=== PATIENT | male | born 1930 ===

== ENCOUNTER 2016-11-27 10:28 | Observation (INO) | payer MEDICARE, OTHER ==
[2016-11-27 10:31] VITALS: BMI 26.5
[2016-11-27 11:07] LABS: ADD MANUAL DIFF? NO
[2016-11-27 11:23] LABS: ALB/GLOB RATIO 1.5 (1.1-1.8); ALKALINE PHOSPHATASE 88 U/L (38-133); ALT/SGPT 24 U/L (7-56); AST/SGOT 55 U/L (15-59); BILIRUBIN,TOTAL 0.7 mg/dL (0.2-1.3); BLOOD UREA NITROGEN 24 mg/dL (7-21); CALCIUM 8.5 mg/dL (8.4-10.5); CARBON DIOXIDE 25 mmol/L (21-33); CHLORIDE 98 mmol/L (98-107); GFR AFRICAN-AMERICAN > 60; GLUCOSE,RANDOM 250 mg/dL (70-110); MAGNESIUM 1.7 mg/dL (1.7-2.2); POTASSIUM 5.1 mmol/L (3.6-5.0); SODIUM 130 mmol/L (132-148); TOTAL PROTEIN 5.9 g/dL (5.8-8.3)
--- NOTE | 2016-11-27 11:30 | RAD ---
HISTORY: chest pain COMPARISON: 07/10/2015 FINDINGS: LUNGS: No active pulmonary disease. PLEURA: No significant pleural effusion identified, no pneumothorax apparent. CARDIOVASCULAR: Normal. OSSEOUS STRUCTURES: No significant abnormalities. VISUALIZED UPPER ABDOMEN: Normal. OTHER FINDINGS: None. IMPRESSION: No active disease.
[2016-11-27 11:35] LABS: TROPONIN I < 0.01 ng/mL
[2016-11-27 11:41] LABS: BASO # 0.03 K/mm3 (0.0-2.0); BASO % 0.4 % (0.0-3.0); EOS # 0.2 (0.0-0.7); EOS % 2.9 % (1.5-5.0); GRAN # 6.01 (1.4-6.5); GRAN % 76.5 % (50.0-68.0); HEMATOCRIT 39.1 % (42.0-52.0); LYMPH # 1.2 (1.2-3.4); LYMPH % 15.1 % (22.0-35.0); MEAN CELL VOLUME 60.2 fL (80.0-105.0); MEAN CORPUSCULAR HEMOGLOBIN 16.5 pg (25.0-35.0); MEAN CORPUSCULAR HGB CONC 27.4 g/dl (31.0-37.0); MONO # 0.4 (0.1-0.6); MONO % 5.1 % (1.0-6.0); PLATELET COUNT 574 10^3/uL (120.0-450.0); WHITE BLOOD COUNT 7.9 10^3/ul (4.5-11.0)
--- NOTE | 2016-11-27 12:21 | CT ---
PROCEDURE: CT HEAD WITHOUT CONTRAST. HISTORY: r/o ICH COMPARISON: None available. TECHNIQUE: Axial computed tomography images were obtained through the head/brain without intravenous contrast. Radiation dose: Total exam DLP = 802 mGy-cm. This CT exam was performed using one or more of the following dose reduction techniques: Automated exposure control, adjustment of the mA and/or kV according to patient size, and/or use of iterative reconstruction technique. FINDINGS: HEMORRHAGE: No intracranial hemorrhage. BRAIN: No mass effect or edema. No atrophy or chronic microvascular ischemic changes. VENTRICLES: Unremarkable. No hydrocephalus. CALVARIUM: Unremarkable. PARANASAL SINUSES: Unremarkable as visualized. No significant inflammatory changes. MASTOID AIR CELLS: Unremarkable as visualized. No inflammatory changes. OTHER FINDINGS: None. IMPRESSION: Normal CT of the Head.
--- NOTE | 2016-11-27 13:42 | ED PDOC ---
Arrival/HPI - General Chief Complaint: Weakness/Neurological Deficit Time Seen by Provider: 11/27/16 10:49 Historian: Family - History of Present Illness Narrative History of Present Illness (Text): 11/27/16 10:49 A 85 year old male presents to the emergency department, accompanied by family. Family states the patient has been complaining of left arm and chest discomfort since last night. Patient denies any shortness of breath cough, fever, chills, recent travel or any other complaints at this time. Family mentions the patient has cardiac stents and has not had a cardiac workup recently. PMD: Dr. Mitchell Time/Duration: Other (12-18 hours) Symptom Onset: Sudden Symptom Course: Unchanged Quality: Other Activities at Onset: Rest Context: Home Past Medical History - Provider Review Nursing Documentation Reviewed: Yes - Infectious Disease Hx of Infectious Diseases: None - Cardiac Hx Cardiac Disorders: Yes (cad) - Neurological Hx Paralysis: No - HEENT Hx Cataracts: Yes (bilateral 1 1/2 yrs ago) Other/Comment: wears eyeglasses - Endocrine/Metabolic Hx Diabetes Mellitus Type 2: Yes - Hematological/Oncological Hx Blood Transfusions: (PT IS JEHOVAHS WITTNESS/NO BLOOD TRANSFUSIONS) - Integumentary Other/Comment: redness to lle - Musculoskeletal/Rheumatological Hx Falls: No - Genitourinary/Gynecological Hx Prostate Problems: Yes (enlarged takees flomax) - Psychiatric Hx Substance Use: No - Surgical History Hx Cardiac Catheterization: Yes (appx 15 yrs ago) Other/Comment: cardiac stent - Anesthesia Hx Anesthesia Reactions: No Hx Malignant Hyperthermia: No - Suicidal Assessment Feels Threatened In Home Enviroment: No Family/Social History - Physician Review Nursing Documentation Reviewed: Yes Family/Social History: Unknown Family HX Smoking Status: Never Smoked Hx Alcohol Use: No Hx Substance Use: No Hx Substance Use Treatment: No Allergies/Home Meds Allergies/Adverse Reactions: Allergies Penicillins Allergy (Verified 11/27/16 14:44) RASH Home Medications: Home Meds Medication Instructions Recorded Confirmed Tamsulosin [Flomax] 0.4 mg PO DAILY 09/19/12 11/27/16 Glimepiride 4 mg PO DAILY 10/08/15 11/27/16 Metformin HCl [Glucophage] 1,000 mg PO BID 10/08/15 11/27/16 Multivitamin [One Daily] 1 tab PO DAILY 10/08/15 11/27/16 Aspirin [Ecotrin] 81 mg PO DAILY 11/27/16 11/27/16 Famotidine [Heartburn Prevention] 20 mg PO DAILY 11/27/16 11/27/16 Finasteride [Proscar] 5 mg PO DAILY 11/27/16 11/27/16 Gabapentin [Neurontin] 100 mg PO TID 11/27/16 11/27/16 Isosorbide Dinitrate [Isosorbide 30 mg PO DAILY 11/27/16 11/27/16 Dinitrate] Review of Systems - Physician Review All systems were reviewed & negative as marked: Yes - Review of Systems Constitutional: absent: Fevers Respiratory: absent: SOB, Cough Cardiovascular: Chest Pain Musculoskeletal: Other (left arm discomfort) Physical Exam Vital Signs Reviewed: Yes Vital Signs Temp Pulse Resp BP Pulse Ox 11/27/16 13:24 74 20 144/81 99 11/27/16 11:56 81 19 150/76 100 11/27/16 10:29 97.9 F 86 20 154/79 H 100 Temperature: Afebrile Blood Pressure: Hypertensive Pulse: Regular Respiratory Rate: Normal Appearance: Positive for: Well-Appearing, Non-Toxic, Comfortable Pain Distress: None Mental Status: Positive for: Alert and Oriented X 3 - Systems Exam Head: Present: Atraumatic, Normocephalic Pupils: Present: PERRL Extroacular Muscles: Present: EOMI Conjunctiva: Present: Normal Mouth: Present: Moist Mucous Membranes Neck: Present: Normal Range of Motion Respiratory/Chest: Present: Clear to Auscultation, Good Air Exchange. No: Respiratory Distress, Accessory Muscle Use Cardiovascular: Present: Regular Rate and Rhythm, Normal S1, S2. No: Murmurs Abdomen: Present: Normal Bowel Sounds. No: Tenderness, Distention, Peritoneal Signs Back: Present: Normal Inspection Upper Extremity: Present: Normal Inspection. No: Cyanosis, Edema Lower Extremity: Present: Normal Inspection. No: Edema Neurological: Present: GCS=15, CN II-XII Intact, Speech Normal Skin: Present: Warm, Dry, Normal Color. No: Rashes Psychiatric: Present: Alert, Oriented x 3, Normal Insight, Normal Concentration Medical Decision Making ED Course and Treatment: 11/27/16 10:49 Impression: A 85 year old male with chest and left arm discomfort. Differential Diagnosis include but are not limited to: ACS Plan: -- EKG -- Head CT -- Chest X-ray -- Labs -- Urinalysis -- Reassess and disposition Prior Visits: Notes and results from previous visits were reviewed. The patient last presented to the emergency department on 10/08/15 for evaluation og left lower extremity pain, swelling and erythema. Progress Notes: EKG: Ordered, reviewed, and independently interpreted the EKG. Rate : 91 BPM Rhythm : NSR Interpretation : 1st degree AV block, normal axis 11/27/16 11:31 Chest X-ray: Creator : Issac Ramon MD COMPARISON: 07/10/2015 FINDINGS: LUNGS: No active pulmonary disease. PLEURA: No significant pleural effusion identified, no pneumothorax apparent. CARDIOVASCULAR: Normal. OSSEOUS STRUCTURES: No significant abnormalities. VISUALIZED UPPER ABDOMEN: Normal. OTHER FINDINGS: None. IMPRESSION: No active disease. 11/27/16 12:[address]: Creator : Young Young MD COMPARISON: None available. FINDINGS: HEMORRHAGE: No intracranial hemorrhage. BRAIN: No mass effect or edema. No atrophy or chronic microvascular ischemic changes. VENTRICLES: Unremarkable. No hydrocephalus. CALVARIUM: Unremarkable. PARANASAL SINUSES: Unremarkable as visualized. No significant inflammatory changes. MASTOID AIR CELLS: Unremarkable as visualized. No inflammatory changes. OTHER FINDINGS: None. IMPRESSION: Normal CT of the Head. 11/27/16 12:[address] Mitchell, who is aware and agrees with the plan to place the patient in Telemetry for observation for chest pain. I have discussed the results and plan with the patient and family, who expresses understanding. Patient and family given the opportunity to ask question, all questions were answered and there is agreement with the plan to be admitted to the hospital. - Lab Interpretations Lab Results: 11/27/16 11:00 11/27/16 11:00 Lab Results 11/27/16 11:00: Sodium 130 L, Potassium 5.1 H, Chloride 98, Carbon Dioxide 25, Anion Gap 12, BUN 24 H, Creatinine 1.3, Est GFR ( Amer) > 60, Est GFR ( Non-Af Amer) 52, Random Glucose 250 H, Calcium 8.5, Magnesium 1.7, Total Bilirubin 0.7, AST 55, ALT 24, Alkaline Phosphatase 88, Lactate Dehydrogenase 479, Total Creatine Kinase 41, Troponin I < 0.01, Total Protein 5.9, Albumin 3.5 , Globulin 2.4, Albumin/Globulin Ratio 1.5 11/27/16 11:00: WBC 7.9 D, RBC 6.49 H, Hgb 10.7 L, Hct 39.1 L, MCV 60.2 L, MCH 16.5 L, MCHC 27.4 L, RDW 20.0 H, Plt Count 574 H, Gran % 76.5 H, Lymph % (Auto) 15.1 L, [place] % (Auto) 5.1, Eos % (Auto) 2.9, Baso % (Auto) 0.4, Gran # 6.01, Lymph # 1.2, [place] # 0.4, Eos # 0.2, Baso # 0.03 I have reviewed the lab results: Yes - RAD Interpretation Radiology Orders: 11/27/16 10:49 HEAD W/O CONTRAST [CT] Stat 11/27/16 10:50 CHEST PORTABLE [RAD] Stat - Medication Orders Current Medication Orders: Famotidine (Pepcid) 20 mg PO 1000,2200 YVETTE Finasteride (Proscar) 5 mg PO DAILY YVETTE Fludrocortisone Acetate (Florinef) 0.1 mg PO QAM YVETTE Gabapentin (Neurontin) 100 mg PO TID YVETTE PRN Reason: Protocol Glimepiride (Amaryl) 4 mg PO DAILY YVETTE Insulin Human Regular (Humulin R Low) 0 units SC ACHS YVETTE PRN Reason: Protocol Isosorbide Mononitrate (Imdur) 30 mg PO DAILY YVETTE Metformin HCl (Glucophage) 850 mg PO BID YVETTE Tamsulosin HCl (Flomax) 0.4 mg PO DAILY YVETTE Discontinued Medications Aspirin (Aspirin) 325 mg PO STAT STA Stop: 11/27/16 11:39 Last Admin: 11/27/16 11:46 Dose: 325 mg - Scribe Statement The provider has reviewed the documentation as recorded by the Brian Le Provider Scribe Attestation: All medical record entries made by the Scribe were at my direction and personally dictated by me. I have reviewed the chart and agree that the record accurately reflects my personal performance of the history, physical exam, medical decision making, and the department course for this patient. I have also personally directed, reviewed, and agree with the discharge instructions and disposition. Disposition/Present on Arrival - Present on Arrival Any Indicators Present on Arrival: No History of DVT/PE: No History of Uncontrolled Diabetes: No Urinary Catheter: No History of Decub. Ulcer: No History Surgical Site Infection Following: None - Disposition Have Diagnosis and Disposition been Completed?: Yes Diagnosis: Chest pain Disposition: HOSPITALIZED Disposition Time: 12:25 Patient Plan: Telemetry Condition: STABLE
--- NOTE | 2016-11-27 15:14 | CARD ---
APPROVED REPORT EKG Measurement Heart [id number] <Conclusion> Sinus rhythm with 1st degree AV block Prolonged QT Abnormal ECG
--- NOTE | 2016-11-27 20:35 | HP ---
HISTORY OF PRESENT ILLNESS: The patient is an 85-year-old male who presented to the Emergency Room c omplaining of an episode of left-sided chest pain, which was nonradiating, lasting a few minutes. Th ere is no shortness of breath, no cough, no fever, no chills, no nausea, no vomiting, or diaphoresis. The patient has a history of peripheral vascular disease and coronary disease in the past. He is a dmitted to the telemetry unit for further observation and management. PAST MEDICAL HISTORY: Includes type 2 diabetes mellitus, coronary artery disease, polycythemia vera and congestive heart failure as well as BPH. PAST SURGICAL HISTORY: The patient is status post acute arterial insufficiency of the left leg, stat us post thrombectomy and stent placement by Dr. Puentes and Dr. Cunningham in 10/2015. CURRENT MEDICATIONS: Include Flomax 0.4 mg daily, metformin 1000 mg twice daily, Imdur 30 mg daily, glimepiride 4 mg daily, Neurontin 100 mg 3 times daily, Proscar 5 mg daily, Pepcid 20 mg daily, and E cotrin 81 mg daily. ALLERGIES: THE PATIENT REPORTS AN ALLERGY TO PENICILLIN WITH ANAPHYLACTIC SHOCK. SOCIAL HISTORY: The patient lives with his family. There is no history of tobacco or alcohol use. He is independent with ADLs and IADLs. REVIEW OF SYSTEMS: Essentially negative other than above. There is no fever, no chills, no nausea, no vomiting, no diarrhea. PHYSICAL EXAMINATION: GENERAL: The patient is a well-developed male in no acute distress. VITAL SIGNS: Blood pressure 144/81, temperature 97.9, pulse 74, respiratory rate 20. HEENT: Head is normocephalic, atraumatic. Pupils equal, round, reactive to light. Extraocular move ments intact. NECK: Supple, with no thyromegaly, no carotid bruit. LUNGS: Clear. HEART: Regular rate and rhythm. ABDOMEN: Soft, nontender, bowel sounds are normoactive. EXTREMITIES: Without cyanosis, clubbing, or edema. NEUROLOGIC: The patient is awake and oriented x 3 without focal sensory or motor deficits. SKIN: Warm and dry. LABORATORY DATA: WBC 7.9, hemoglobin 10.7, hematocrit 39.1, MCV is 60.2, platelet count 574. Sodium is 130, potassium 5.1, chloride 98, CO2 25, BUN 24, creatinine 1.3, glucose 250. Troponin is less t [place] 0.01. Chest x-ray shows no active disease. CT scan of the head was performed which showed no ac [place] bleeds or infarcts. IMPRESSION: 1. Chest pain/history of coronary artery disease. 2. Type 2 diabetes mellitus. 3. 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 4. History of benign prostatic hypertrophy. 5. Microcytic anemia of uncertain etiology. PLAN: Continue to monitor on telemetry. We will obtain cardiology consultation by Dr. Faulkner/Tony. We will empirically start Florinef 0.1 mg daily to see if it corrects the electrolyte abnormality. Social work for discharge planning. Julio C Mitchell JD, MD cc: [id number] TT: 11/27/2016 20:34:56 blaise
[2016-11-27] MEDS: Insulin Reg-LOW-Coverage SC SCH (21:16)
[2016-11-28 01:29] LABS: PH,URINE 6.5 (4.7-8.0); URINE BILIRUBIN NEGATIVE (NEGATIVE); URINE BLOOD NEGATIVE (NEGATIVE); URINE GLUCOSE (UA) NEGATIVE (NEGATIVE); URINE KETONE NEGATIVE (NEGATIVE); URINE LEUKOCYTE ESTERASE NEGATIVE Leu/uL (NEGATIVE); URINE PROTEIN 100 mg/dL (<30 mg/dL); URINE UROBILINOGEN 0.2 E.U./dL (<1 E.U./dL)
[2016-11-28 01:38] LABS: URINE APPEARANCE CLEAR (CLEAR); URINE COLOR LIGHT YELLOW (YELLOW)
[2016-11-28 01:57] LABS: URINE BACTERIA SMALL (NEG); URINE EPITHELIAL CELLS 0 - 2 /hpf (0-5); URINE RBC 0 - 2 /hpf (0-2); URINE WBC NEGATIVE /hpf (0-6)
[2016-11-28 05:21] VITALS: O2SAT 99
[2016-11-28 07:38] LABS: ADD MANUAL DIFF? NO
[2016-11-28 07:48] LABS: BASO # 0.03 K/mm3 (0.0-2.0); BASO % 0.4 % (0.0-3.0); EOS # 0.5 (0.0-0.7); EOS % 5.3 % (1.5-5.0); GRAN # 6.18 (1.4-6.5); GRAN % 72.8 % (50.0-68.0); LYMPH # 1.5 (1.2-3.4); LYMPH % 17.1 % (22.0-35.0); MEAN CORPUSCULAR HEMOGLOBIN 16.6 pg (25.0-35.0); MEAN CORPUSCULAR HGB CONC 27.6 g/dl (31.0-37.0); MONO # 0.4 (0.1-0.6); MONO % 4.4 % (1.0-6.0); PLATELET COUNT 610 10^3/uL (120.0-450.0); RED CELL DISTRIBUTION WIDTH 20.4 % (11.5-14.5); WHITE BLOOD COUNT 8.5 10^3/ul (4.5-11.0)
[2016-11-28] MEDS: Insulin Reg-LOW-Coverage SC SCH (08:00)
[2016-11-28 08:21] LABS: ALB/GLOB RATIO 1.5 (1.1-1.8); ALKALINE PHOSPHATASE 90 U/L (38-133); ALT/SGPT 32 U/L (7-56); AST/SGOT 33 U/L (15-59); BILIRUBIN,TOTAL 0.6 mg/dL (0.2-1.3); BLOOD UREA NITROGEN 25 mg/dL (7-21); CALCIUM 9.1 mg/dL (8.4-10.5); CARBON DIOXIDE 26 mmol/L (21-33); CHLORIDE 103 mmol/L (98-107); CHOLESTEROL 141 mg/dL (130-200); GFR AFRICAN-AMERICAN > 60; GLUCOSE,RANDOM 94 mg/dL (70-110); MAGNESIUM 1.8 mg/dL (1.7-2.2); PHOSPHOROUS 3.8 mg/dL (2.5-4.5); POTASSIUM 4.8 mmol/L (3.6-5.0); SODIUM 135 mmol/L (132-148); TOTAL PROTEIN 6.2 g/dL (5.8-8.3)
[2016-11-28 08:33] LABS: TROPONIN I 0.01 ng/mL
[2016-11-28] MEDS ORDERED: Enoxaparin 30 mg Syringe SC SCH (12:15)
--- NOTE | 2016-11-28 12:40 | CON ---
DATE: 11/28/2016 REASON FOR CONSULTATION AND FOLLOWUP: Chest pain, history of coronary artery disease in the past, hi story of polycythemia, Je[employer] Witness. BRIEF CLINICAL HISTORY: This is an 85-year-old man with a past medical history significant for conge stive heart failure, initially being followed by Dr. Villa, history of PTCA of right coronary arter y 10/2012 and then followed by stress test in 06/2013 that was negative, who came in with complaint of nonradiating chest pain. Denies any prior episode of chest pain or dyspnea on exertion. He said he walks 2 miles with no chest pain. PAST MEDICAL HISTORY: Significant for polycythemia vera, congestive heart failure, BPH, diabetes gianfranco litus, coronary artery disease, status post PTCA of the right coronary artery 10/[address] Villa's group. Previous cardiac workup as follows: The patient had a cardiac catheterization and angioplasty in [facility] in 10/2012 of the right coronary artery. Following that, the patient had a stres s test 06/2013 that shows no reversible ischemia noted. At that time, also echo was done in Dr. Kisha brady's office that shows preserved LV function, trace MR, trace TR, ejection fraction 55%. The patien t's repeat echo was done on 07/11/2015 that shows normal sinus, concentric LVH, ejection fraction 40-45 %, mild aortic regurgitation, mild tricuspid regurgitation, RV systolic pressure 23, moderate mitral regurgitation. SOCIAL HISTORY: Denies smoking. Denies any history of alcohol abuse. ALLERGIES: PENICILLIN ____ GIVE ANAPHYLACTIC REACTION. CURRENT MEDICATIONS: The patient at home was taking Flomax, multivitamin, metformin, isosorbide mono nitrate, glyburide, gabapentin, Proscar and famotidine for heartburn and aspirin. REVIEW OF SYSTEMS: As per HPI. PHYSICAL EXAMINATION: VITAL SIGNS: Temperature afebrile, heart rate 80, blood pressure 159/83. HEENT: PERRLA. Extraocular muscles intact. NECK: Supple. No carotid bruits. No thyromegaly. CHEST: Clear to auscultation. HEART: S1, S2 regular. ABDOMEN: Soft. EXTREMITIES: Clubbing and cyanosis negative. EKG shows normal sinus, ____ MD interval. LABORATORY DATA: Blood workup as follows: WBC 8.5, hemoglobin 11.7, hematocrit 42.0, platelet count 610. Chemistry shows sodium 135, potassium 4.0, chloride 103, carbon dioxide 26, anion gap of 11, B UN 25, creatinine 1.2. IMPRESSION: Atypical chest pain, but history of coronary artery disease, status post percutaneous tr ansluminal coronary angioplasty of right coronary artery in 10/2012, history of a stress test followup of the post angioplasty 06/2013 was essentially negative, no reversible ischemia. Last echo shows e jection fraction 40-45%, ____ mitral regurgitation, mild tricuspid regurgitation, ____ regurgitation, right ventricular systolic pressure 23. RECOMMENDATION: Follow up CPK, troponin this morning added on. We will get echo. We will get lipid profile, TSH. Further recommendation and also get hemoglobin A1c. We will follow with you. Thank you, Dr. Mitchell, for providing us the opportunity in taking care of the patient. if the patient remains CPK, troponin negative and stable, the patient can be discharged, stress test as outpatient because of long weekend. We will follow with you. We will also add DVT prophylaxis. Swetha Jimenez MD cc: [id number] TT: 11/28/2016 12:39:55 Confirmation # [id number] Dictation # [id number] tn
[2016-11-28 13:15] VITALS: BP 137/72; PULSE 92; RESP 16; TEMP 98.2
--- NOTE | 2016-11-28 14:30 | CARD ---
APPROVED REPORT EXAM: Two-dimensional and M-mode echocardiogram with Doppler and color Doppler. 2D DIMENSIONS IVSd1.2 (0.7-1.1cm)LVDd4.7 (3.9-5.9cm) PWd1.2 (0.7-1.1cm)LVDs3.2 (2.5-4.0cm) FS (%) 32.5 %LVEF (%)60.9 (>50%) M-Mode DIMENSIONS Left Atrium (MM)3.80 (2.5-4.0cm)Aortic Root3.40 (2.2-3.7cm) Aortic Cusp Exc.2.30 (1.5-2.0cm) Aortic Valve AoV Peak Bbfinvec181.0cm/sAoV VTI31.0cmAO Peak GR.10mmHg LVOT Peak Qblzkhwp848.0cm/sLVOT VTI20.40cmAO Mean GR.5mmHg AI P 1/2 [id number] Mitral Valve MV E Zroqmgar72.8cm/sMV E Peak Gr.122mmHg TDI Lateral E' Peak V14.40cm/sMedial E' Peak V10.50cm/sE/Lateral E'6.2 E/Medial E'8.5 Tricuspid Valve TR Peak Sqcxiiln217jy/sRAP [id number] Peak Gr.27mmHg MYPA17rtMd LEFT VENTRICLE The left ventricle is normal size. There is borderline to mild concentric left ventricular hypertrophy. The left ventricular function is normal. The left ventricular ejection fraction is within the normal range. There is mild hypokinesis in the apical anterior wall. Transmitral Doppler flow pattern is Grade III-reversible restrictive diastolic dysfunction. No left ventricle thrombus noted on this study. There is no ventricular septal defect visualized. There is no left ventricular aneurysm. There is no mass noted in the left ventricle. RIGHT VENTRICLE The right ventricle is normal size. There is normal right ventricular wall thickness. The right ventricular systolic function is normal. ATRIA The left atrium is borderline dilated. The right atrium size is normal. AORTIC VALVE The aortic valve is thickened but opens well. The aortic valve is mildly to moderately sclerotic. There is mild aortic regurgitation. There is no aortic valvular stenosis. There is no aortic valvular vegetation. MITRAL VALVE The mitral valve is thickened but opens well. Mitral regurgitation is mild to moderate. There is no mitral valve stenosis. There is no evidence of mitral valve prolapse. TRICUSPID VALVE The tricuspid valve leaflets are thickened or calcified, but open well. There is mild tricuspid regurgitation.RVSP-37 mmof hg. There is no tricuspid valve stenosis. There is no tricuspid valve prolapse or vegetation. PULMONIC VALVE The pulmonary valve is normal in structure. There is trace pulmonic valvular regurgitation. There is no pulmonic valvular stenosis. GREAT VESSELS The aortic root is normal in size. The ascending aorta is normal in size. The pulmonary artery is normal. The IVC is normal in size and collapses >50% with inspiration. PERICARDIAL EFFUSION There is no pleural effusion. There is no pericardial effusion. <Conclusion> The left ventricle is normal size. There is borderline to mild concentric left ventricular hypertrophy. The left ventricular function is normal. The left ventricular ejection fraction is within the normal range. There is mild hypokinesis in the apical anterior wall. There is mild aortic regurgitation. There is no aortic valvular stenosis. Mitral regurgitation is mild to moderate. There is mild tricuspid regurgitation.RVSP-37 mmof hg.
--- NOTE | 2016-11-28 19:24 | DS ---
HOSPITAL COURSE: The patient is an 85-year-old male admitted through the Emergency Department on 11/03 with chest pain. Troponin levels, CPK and EKG were negative for acute myocardial infarction. The patient denies any chest pain, shortness of breath, nausea, vomiting or diaphoresis at the prese nt time and he is medically stable for discharge. PHYSICAL EXAMINATION: VITAL SIGNS: Blood pressure 159/89, pulse 98, temperature 98.4, respiratory rate 20. LUNGS: Clear. HEART: Regular rate and rhythm. ABDOMEN: Soft, nontender, bowel sounds are normoactive. EXTREMITIES: Without cyanosis, clubbing, or edema. NEUROLOGIC: The patient is awake and oriented x 3 without focal sensory or motor deficits. SKIN: Warm and dry. LABORATORY DATA: WBC is 8.5, hemoglobin 11.6, hematocrit 42.0. Sodium 135, potassium 4.8, chloride 109, CO2 26, BUN 25, creatinine 1.2, glucose 94. IMPRESSION: 1. Atypical chest pain. 2. Type 2 diabetes mellitus. 3. Hyponatremia and mild hyperkalemia, probably secondary to type 4 renal tubular acidosis from diab etes, now corrected on Florinef. 4. Benign prostatic hypertrophy. 5. 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 PLAN: We will discharge patient to home in stable condition on the following medications: Flomax 0. 4 mg daily, metformin 1000 mg twice daily, Imdur 30 mg daily, glimepiride 4 mg daily, Neurontin 100 m g 3 times daily, Proscar 5 mg daily, Pepcid 20 mg daily, Ecotrin 81 mg daily and Florinef 0.1 mg josh y. The patient will be maintained on a heart-healthy diet, activities ad libitum and he will be foll owed in the office in the next 1-2 weeks. Julio C Mitchell JD, MD cc: [id number] TT: 11/28/2016 19:23:02 jn
== END 2016-11-28 14:26 | disposition home or self-care (01) ==
LOC: ED 10:28 → ERH 12:37 → 2RSO 13:43
PROVIDERS: ADMIT Internal Medicine; ATTEND Internal Medicine
DX: R07.89 Other chest pain (principal); E11.9 Type 2 diabetes mellitus without complications; E87.1 Hypo-osmolality and hyponatremia; E87.5 Hyperkalemia; N25.89 Other disorders resulting from impaired renal tubular function; N40.0 Benign prostatic hyperplasia without lower urinary tract symptoms; D50.9 Iron deficiency anemia, unspecified; D56.3 Thalassemia minor; D45 Polycythemia vera; I08.1 Rheumatic disorders of both mitral and tricuspid valves; I08.3 Combined rheumatic disorders of mitral, aortic and tricuspid valves; I25.10 Atherosclerotic heart disease of native coronary artery without angina pectoris; I50.9 Heart failure, unspecified; I73.9 Peripheral vascular disease, unspecified; Z79.82 Long term (current) use of aspirin; Z79.899 Other long term (current) drug therapy; Z95.5 Presence of coronary angioplasty implant and graft; Z88.0 Allergy status to penicillin; R40.2412 Glasgow coma scale score 13-15, at arrival to emergency department; I44.0 Atrioventricular block, first degree; Z87.892 Personal history of anaphylaxis
CPT/HCPCS: 36415; 70450; 71010; 80053; 80061; 81001; 82550; 82948; 83036; 83615; 83735; 84100; 84443; 84484; 85025; 93005; 93306; 99285; G0378

== ENCOUNTER 2017-01-23 09:00 | Inpatient (IN) | payer MEDICARE, OTHER ==
[2017-01-23] MEDS ORDERED: Nitroglycerin 2% Ointment Foilpak UD TOP STA (09:18)
[2017-01-23 09:22] VITALS: BMI 23.9
--- NOTE | 2017-01-23 09:26 | ED PDOC ---
Arrival/HPI - General Time Seen by Provider: 01/23/17 09:05 Historian: Patient - History of Present Illness Narrative History of Present Illness (Text): 01/23/17 09:07 Monico Delgado is an 86 year old male accompanied by family, whose past medical history includes CAD and stents, who presents to the emergency department complaining of chest pain radiating down left arm since yesterday. Patient states that his pain is non-exertional and is persistent this morning compared to being intermittent yesterday. Patient also notes that he experiences associated bilateral leg swelling and an elevated blood pressure. Patient's son believes symptoms are stress induced due to patient's brother's hospitalization. Patient states that he took only his Metformin medication this morning, not his daily aspirin. Patient denies any back pain, neck pain, nausea , vomiting, dizziness, shortness of breath, diaphoresis, or any other complaint at this time. PMD: Dr. Mitchell Regional Planner: Dr. Villa Time/Duration: 24 hours Symptom Onset: Gradual Symptom Course: Unchanged Severity Level: Moderate Activities at Onset: Light Context: Home Past Medical History - Provider Review Nursing Documentation Reviewed: Yes - Infectious Disease Hx of Infectious Diseases: None - Cardiac Hx Cardiac Disorders: Yes (cad) - Neurological Hx Paralysis: No - HEENT Hx Cataracts: Yes (bilateral 1 1/2 yrs ago) Other/Comment: wears eyeglasses - Endocrine/Metabolic Hx Diabetes Mellitus Type 2: Yes - Hematological/Oncological Hx Blood Transfusions: (PT IS [facility]OVA[facility]/NO BLOOD TRANSFUSIONS) - Integumentary Other/Comment: redness to lle - Musculoskeletal/Rheumatological Hx Falls: No - Genitourinary/Gynecological Hx Prostate Problems: Yes (enlarged takees flomax) - Psychiatric Hx Substance Use: No - Surgical History Hx Cardiac Catheterization: Yes (appx 15 yrs ago) Other/Comment: cardiac stent - Anesthesia Hx Anesthesia Reactions: No Hx Malignant Hyperthermia: No - Suicidal Assessment Feels Threatened In Home Enviroment: No Family/Social History - Physician Review Nursing Documentation Reviewed: Yes Family/Social History: No Known Family HX Smoking Status: Never Smoked Hx Alcohol Use: No Hx Substance Use: No Hx Substance Use Treatment: No Allergies/Home Meds Allergies/Adverse Reactions: Allergies Penicillins Allergy (Verified 11/27/16 14:44) RASH Home Medications: Home Meds Medication Instructions Recorded Confirmed Tamsulosin [Flomax] 0.4 mg PO DAILY 09/19/12 01/23/17 Glimepiride 4 mg PO DAILY 10/08/15 01/23/17 Metformin HCl [Glucophage] 1,000 mg PO BID 10/08/15 01/23/17 Multivitamin [One Daily] 1 tab PO DAILY 10/08/15 01/23/17 Aspirin [Ecotrin] 81 mg PO DAILY 11/27/16 01/23/17 Famotidine [Heartburn Prevention] 20 mg PO DAILY 11/27/16 01/23/17 Finasteride [Proscar] 5 mg PO DAILY 11/27/16 01/23/17 Gabapentin [Neurontin] 100 mg PO TID 11/27/16 01/23/17 Isosorbide Dinitrate 30 mg PO DAILY 11/27/16 01/23/17 Furosemide [Lasix] 20 mg PO DAILY 01/23/17 01/23/17 Review of Systems - Review of Systems Constitutional: Other (elevated blood pressure) Eyes: absent: Vision Changes ENT: absent: Hearing Changes Respiratory: SOB Cardiovascular: Chest Pain (radiating down left arm), Edema, WILD. absent: Syncope Gastrointestinal: absent: Abdominal Pain, Nausea, Vomiting Genitourinary Male: absent: Dysuria Musculoskeletal: Other (bilateral leg swelling). absent: Back Pain, Neck Pain Skin: absent: Rash Neurological: absent: Headache, Dizziness Endocrine: absent: Diaphoresis Hemo/Lymphatic: absent: Adenopathy Psychiatric: absent: Anxiety Physical Exam - Physical Exam Narrative Physical Exam (Text): Head: Atraumatic. Normocephalic. Eyes: PERRL. EOMI. Conjunctivae are not pale. ENT: Mucous membranes are moist and intact. Oropharynx is clear and symmetric. Neck: Supple. Full ROM. No JVD. No lymphadenopathy. Cardiovascular: Regular rate. Regular rhythm. Systolic murmur. Pulmonary/Chest: Mildly tachypneic. Mild crackles at bases. No accessory muscle usage. No respiratory distress. Abdominal: Soft and non-distended. There is no tenderness. No rebound, guarding, or rigidity. No organomegaly. Good bowel sounds. Back: No CVA tenderness. Extremities: Bilateral leg edema. No cyanosis. No clubbing. Full range of motion in all extremities. No calf tenderness. Skin: Skin is warm and dry. No petechiae. No purpura. Neurological: Alert, awake, and oriented to person, place, time, and situation. Normal speech. Motor and sensory exam intact. Psychiatric: Good eye contact. Anxious. 01/23/17 11:22 Vital Signs Reviewed: Yes Vital Signs Temp Pulse Resp BP Pulse Ox 01/23/17 09:52 91 H 169/94 H 01/23/17 09:01 98.1 F 92 H 17 177/105 H 100 Temperature: Afebrile Blood Pressure: Hypertensive Pulse: Tachycardic Respiratory Rate: Normal Appearance: Positive for: Well-Appearing, Non-Toxic, Comfortable Pain Distress: None Mental Status: Positive for: Alert and Oriented X 3 Finger Stick Blood Glucose: 220 Medical Decision Making ED Course and Treatment: 01/23/17 09:07 Impression: 86 year old male complaining of chest pain radiating down left arm with associated bilateral leg swelling since yesterday. Differential Diagnosis included but are not limited to: VA vs. CAD vs. unstable Angina vs. Anxiety vs. CHF Plan: -- Chest X-ray -- Nitrates and Aspirin -- Reassess and disposition Prior Visits: Notes and results from previous visits were reviewed. Patient had a cardiac catheterization with stents at [facility] in 2012. Patient was in emergency department in November 2016 and received an unremarkable cardiac workup. Patient last seen in the ED on 11/26/16 for left arm and chest discomfort since the night before arriving that day. Patient was admitted to telemetry for further evaluation. Progress Notes: Patient present with family who also assist with translation. Patient with significant past cardiac history. On initial exam he is hypertensive complaining of worsening chest pain radiating down left arm from arrival. Initial EKG unremarkable, not acutely changed from previous. Repeat EKG obtained as pain worse, again with no acute changes. Patient as per family has had increased stressors over past several days. He reports shortness of breath with exertion and leg swelling. CXR consistent with CHF. No respiratory distress noted. Initial BNP elevated, although initial troponin unremarkable. ASA, Nitrates, betablocker ordered. He is PAIN FREE on rexam at 1100. Lasix ordered. 01/23/17 11:06 Chest X-ray: Dictator : Chadd Sheldon MD FINDINGS: LUNGS:Bibasilar nonspecific opacities. Infiltrate versus atelectasis. PLEURA:Small bilateral pleural effusion. No pneumothorax CARDIOVASCULAR:Normal heart size. Mild congestive change. OSSEOUS STRUCTURES:No significant abnormalities. VISUALIZED UPPER ABDOMEN:Normal. OTHER FINDINGS:None. IMPRESSION: Bibasilar opacities. Infiltrate versus atelectasis. Small bilateral pleural effusion. Mild congestive change. Patient's family states his operations analyst is Dr. Faulkner. Dr. Jimenez covering and consulted. Plan to admit patient for CHF, chest pain. Patient resting comfortably at this time. 01/23/17 11:10 01/23/17 11:24 WBC noted to be elevated. Patient nontoxic appearing. Denies fever, cough, denies abdominal pain or nausea or vomiting. Afebrile in ED. Denies urinary symptoms. UA pending at this time. - Lab Interpretations Lab Results: 01/23/17 09:10 01/23/17 09:10 Lab Results 01/23/17 09:10: NT-Pro-B Natriuret Pep 6520 H 01/23/17 09:10: Sodium 132, Potassium 4.5, Chloride 98, Carbon Dioxide 25, Anion Gap 14, BUN 19, Creatinine 1.2, Est GFR ( Amer) > 60, Est GFR (Non- Af Amer) 57, Random Glucose 225 H, Calcium 8.8, Total Bilirubin 0.9, AST 49, ALT 51, Alkaline Phosphatase 124, Lactate Dehydrogenase 675, Total Creatine Kinase 75, Troponin I < 0.01, Total Protein 6.8, Albumin 4.0, Globulin 2.8, Albumin/Globulin Ratio 1.4, Amylase 77, Lipase 51 01/23/17 09:10: PT 11.6, INR 1.07, APTT 31.0 H 01/23/17 09:10: WBC 12.0 H D, RBC 6.94 H, Hgb 11.7 L, Hct 41.9 L, MCV 60.4 L, MCH 16.9 L, MCHC 27.9 L, RDW 20.6 H, Plt Count 648 H, Gran % 75.6 H, Lymph % ( Auto) 16.1 L, [place] % (Auto) 5.9, Eos % (Auto) 1.8, Baso % (Auto) 0.6, Gran # 9.05 H, Lymph # 1.9, [place] # 0.7 H, Eos # 0.2, Baso # 0.07 - RAD Interpretation Narrative RAD Interpretations (Text): 01/23/17 11:09 cxr, congestive heart failure Radiology Orders: 01/23/17 09:18 CHEST PORTABLE [RAD] Stat Wet Finisher Wool: ED Physician - EKG Interpretation Interpreted by ED Physician: Yes Type: 12 lead EKG - Medication Orders Current Medication Orders: Furosemide (Lasix) 40 mg IVP ONCE ONE Stop: 01/23/17 11:09 Discontinued Medications Aspirin (Aspirin Chewable) 81 mg PO STAT STA Stop: 01/23/17 09:19 Last Admin: 01/23/17 09:52 Dose: 81 mg Metoprolol Tartrate (Lopressor) 25 mg PO STAT STA Stop: 01/23/17 09:20 Last Admin: 01/23/17 09:52 Dose: 25 mg Nitroglycerin (Nitro-Bid 2% Oint) 1 ea TOP ONCE STA Stop: 01/23/17 09:19 Last Admin: 01/23/17 09:22 Dose: 1 ea - Scribe Statement The provider has reviewed the documentation as recorded by the Brian Montesinos Provider Scribe Attestation: All medical record entries made by the Ravenibmaninder were at my direction and personally dictated by me. I have reviewed the chart and agree that the record accurately reflects my personal performance of the history, physical exam, medical decision making, and the department course for this patient. I have also personally directed, reviewed, and agree with the discharge instructions and disposition. Disposition/Present on Arrival - Present on Arrival Any Indicators Present on Arrival: No History of DVT/PE: No History of Uncontrolled Diabetes: No Urinary Catheter: No History Surgical Site Infection Following: None - Disposition Have Diagnosis and Disposition been Completed?: Yes Diagnosis: CHF (congestive heart failure), Chest pain Disposition: HOSPITALIZED Disposition Time: 10:25 Patient Plan: Admission, Telemetry Condition: FAIR Discharge Instructions (ExitCare): Heart Failure (ED), Chest Pain (ED)
[2017-01-23 09:38] LABS: BASO # 0.07 K/mm3 (0.0-2.0); BASO % 0.6 % (0.0-3.0); EOS # 0.2 (0.0-0.7); EOS % 1.8 % (1.5-5.0); GRAN # 9.05 (1.4-6.5); GRAN % 75.6 % (50.0-68.0); HEMOGLOBIN 11.7 gm/dL (14.0-18.0); LYMPH # 1.9 (1.2-3.4); LYMPH % 16.1 % (22.0-35.0); MEAN CELL VOLUME 60.4 fL (80.0-105.0); MEAN CORPUSCULAR HEMOGLOBIN 16.9 pg (25.0-35.0); MEAN CORPUSCULAR HGB CONC 27.9 g/dl (31.0-37.0); MONO # 0.7 (0.1-0.6); MONO % 5.9 % (1.0-6.0); PLATELET COUNT 648 10^3/uL (120.0-450.0); RBC 6.94 10^6/uL (3.5-6.1); RED CELL DISTRIBUTION WIDTH 20.6 % (11.5-14.5)
[2017-01-23 09:46] LABS: INR 1.07 (0.93-1.08); PROTHROMBIN TIME 11.6 Seconds (9.9-11.8)
[2017-01-23 10:05] LABS: ALB/GLOB RATIO 1.4 (1.1-1.8); ALT/SGPT 51 U/L (7-56); AMYLASE 77 U/L (35-125); AST/SGOT 49 U/L (15-59); BLOOD UREA NITROGEN 19 mg/dL (7-21); CALCIUM 8.8 mg/dL (8.4-10.5); GFR AFRICAN-AMERICAN > 60; GFR NON-AFRICAN AMERICAN 57; LIPASE 51 U/L (23-300)
[2017-01-23 10:23] LABS: TROPONIN I < 0.01 ng/mL
--- NOTE | 2017-01-23 11:01 | RAD ---
HISTORY: chest pain COMPARISON: 11/27/2016 FINDINGS: LUNGS: Bibasilar nonspecific opacities. Infiltrate versus atelectasis. PLEURA: Small bilateral pleural effusion. No pneumothorax CARDIOVASCULAR: Normal heart size. Mild congestive change. OSSEOUS STRUCTURES: No significant abnormalities. VISUALIZED UPPER ABDOMEN: Normal. OTHER FINDINGS: None. IMPRESSION: Bibasilar opacities. Infiltrate versus atelectasis. Small bilateral pleural effusion. Mild congestive change.
[2017-01-23] MEDS: Enoxaparin 60 mg Syringe SC SCH ×2 (13:02→22:58)
[2017-01-23] MEDS: Nitroglycerin 2% Ointment Foilpak UD TOP SCH ×2 (13:02→17:39)
[2017-01-23 13:13] LABS: URINE APPEARANCE CLEAR (CLEAR); URINE BILIRUBIN NEGATIVE (NEGATIVE); URINE BLOOD NEGATIVE (NEGATIVE); URINE COLOR YELLOW (YELLOW); URINE GLUCOSE (UA) NEGATIVE (NEGATIVE); URINE LEUKOCYTE ESTERASE NEGATIVE Leu/uL (NEGATIVE); URINE NITRATE NEGATIVE (NEGATIVE); URINE PROTEIN >=300 mg/dL (<30 mg/dL); URINE UROBILINOGEN 0.2 E.U./dL (<1 E.U./dL)
[2017-01-23 13:29] LABS: URINE BACTERIA NEG (NEG); URINE EPITHELIAL CELLS 0 - 2 /hpf (0-5); URINE RBC 0 - 2 /hpf (0-2); URINE WBC 0 - 2 /hpf (0-6)
[2017-01-23 16:14] LABS: TROPONIN I 0.01 ng/mL
[2017-01-23] MEDS: Insulin Reg-LOW-Coverage SC SCH ×2 (17:36→22:49)
--- NOTE | 2017-01-23 19:40 | CARD ---
APPROVED REPORT EKG Measurement Heart [id number] <Conclusion> Sinus rhythm with 1st degree AV block Possible Left atrial enlargement Nonspecific T wave abnormality Abnormal ECG
--- NOTE | 2017-01-23 19:40 | CARD ---
APPROVED REPORT EKG Measurement Heart [id number] <Conclusion> Normal sinus rhythm Possible Left atrial enlargement Nonspecific T wave abnormality Abnormal ECG
[2017-01-23] MEDS ORDERED: Pneumococcal 23-Valent Vaccine IM ONE (19:57)
[2017-01-23 21:54] LABS: TROPONIN I < 0.01 ng/mL
[2017-01-24] MEDS: Nitroglycerin 2% Ointment Foilpak UD TOP SCH ×3 (02:25→19:06)
[2017-01-24 07:13] LABS: HEMOGLOBIN 11.4 gm/dL (14.0-18.0); MEAN CELL VOLUME 59.8 fL (80.0-105.0); MEAN CORPUSCULAR HEMOGLOBIN 16.6 pg (25.0-35.0); MEAN CORPUSCULAR HGB CONC 27.7 g/dl (31.0-37.0); PLATELET COUNT 595 10^3/uL (120.0-450.0); RBC 6.87 10^6/uL (3.5-6.1); RED CELL DISTRIBUTION WIDTH 20.7 % (11.5-14.5); WHITE BLOOD COUNT 10.1 10^3/ul (4.5-11.0)
[2017-01-24 07:39] LABS: ALB/GLOB RATIO 1.4 (1.1-1.8); ALBUMIN 3.6 g/dL (3.0-4.8); ALT/SGPT 42 U/L (7-56); AST/SGOT 35 U/L (15-59); BLOOD UREA NITROGEN 27 mg/dL (7-21); CALCIUM 8.8 mg/dL (8.4-10.5); GFR AFRICAN-AMERICAN > 60; GFR NON-AFRICAN AMERICAN 57; HDL CHOLESTEROL 37 mg/dL (29-60); MAGNESIUM 1.9 mg/dL (1.7-2.2)
[2017-01-24] MEDS: Insulin Reg-LOW-Coverage SC SCH ×4 (07:47→22:10)
[2017-01-24 07:50] LABS: LDL CHOLESTEROL 78 mg/dL (0-129)
[2017-01-24 07:58] LABS: BAND 1 % (0-2); BASOPHIL 1 % (0.0-1.0); EOSINOPHIL 2 % (0.0-3.0); LYMPHOCYTE 11 % (22.0-35.0); MONOCYTE 2 % (1.0-6.0); NEUTROPHIL 83 % (50.0-70.0); PLATELET ESTIMATE HIGH (NORMAL)
[2017-01-24 07:59] LABS: ANISOCYTOSIS 3+; GIANT PLATELETS PRESENT; LARGE PLATELETS PRESENT; POIKILOCYTOSIS 3+; SICKLE CELLS 3+
[2017-01-24 08:00] LABS: OVALOCYTES 2+
[2017-01-24] MEDS: Enoxaparin 60 mg Syringe SC SCH (10:02)
--- NOTE | 2017-01-24 13:08 | CP.PCM.HP ---
History of Present Illness - History of Present Illness History of Present Illness: 86 yo male h/o CAD s/p stent, presents to ED with chest pain rad to L shoulder, SOB, WILD, and increased swelling of the legs for the past 2 weeks. No cough, no fever/chills, seen in ED troponin neg, BNP elevated, pt admitted to telemetry for further eval and mgmt Present on Admission - Present on Admission Any Indicators Present on Admission: No Review of Systems - Cardiovascular Cardiovascular: Chest Pain, Edema - Respiratory Respiratory: Dyspnea on Exertion Past Patient History - Infectious Disease Hx of Infectious Diseases: None - Past Social History Smoking Status: Never Smoked - CARDIAC Hx Cardiac Disorders: Yes (cad) Hx Circulatory Problems: Yes Hx Congestive Heart Failure: Yes Hx Peripheral Edema: Yes Hx Peripheral Vascular Disease: Yes - PULMONARY Hx Respiratory Disorders: Yes (2ND HAND SMOKE) - NEUROLOGICAL Hx Neurological Disorder: Yes (NEUROPATHY) - HEENT Hx HEENT Problems: Yes Hx Cataracts: Yes (bilateral 1 1/2 yrs ago) Other/Comment: wears eyeglasses - ENDOCRINE/METABOLIC Hx Endocrine Disorders: Yes Hx Diabetes Mellitus Type 2: Yes - HEMATOLOGICAL/ONCOLOGICAL Hx Blood Disorders: Yes Hx Anemia: Yes Other/Comment: jehovah witness no blood transfusions - INTEGUMENTARY Hx Dermatological Problems: Yes Other/Comment: redness to lle,BILATERAL LE EDEMA PITTING +2 - MUSCULOSKELETAL/RHEUMATOLOGICAL Hx Musculoskeletal Disorders: Yes Hx Falls: Yes (LAST FELL 15 D AGO.TRIPPED.) Hx Unsteady Gait: Yes - GASTROINTESTINAL Hx Gastrointestinal Disorders: Yes Hx Gastroesophageal Reflux: Yes - GENITOURINARY/GYNECOLOGICAL Hx Genitourinary Disorders: Yes Hx Prostate Problems: Yes (enlarged takees flomax) - PSYCHIATRIC Hx Emotional Abuse: No Hx Physical Abuse: No Hx Substance Use: No - SURGICAL HISTORY Hx Surgeries: Yes (CATARACT SURGERY) Hx Cardiac Catheterization: Yes (appx 15 yrs ago) Hx Coronary Stent: Yes Other/Comment: cardiac stent - ANESTHESIA Hx Anesthesia Reactions: No Hx Malignant Hyperthermia: No Meds Allergies/Adverse Reactions: Allergies Allergy/AdvReac Type Severity Reaction Status Date / Time Penicillins Allergy RASH Verified 11/27/16 14:44 Physical Exam - Constitutional Appears: No Acute Distress - Head Exam Head Exam: ATRAUMATIC, NORMOCEPHALIC - Eye Exam Eye Exam: Normal appearance - Neck Exam Neck exam: Positive for: Normal Inspection - Respiratory Exam Respiratory Exam: Rales - Cardiovascular Exam Cardiovascular Exam: REGULAR RHYTHM - GI/Abdominal Exam GI & Abdominal Exam: Normal Bowel Sounds, Soft - Extremities Exam Extremities exam: Positive for: pedal edema - Back Exam Back exam: NORMAL INSPECTION - Neurological Exam Neurological exam: Alert, Oriented x3 - Skin Skin Exam: Dry, Warm Results - Vital Signs Recent Vital Signs: Last Vital Signs Temp 97.5 F L 01/24/17 12:00 Pulse 74 01/24/17 12:00 Resp 20 01/24/17 12:00 BP 153/87 H 01/24/17 12:00 Pulse Ox 98 01/24/17 06:00 - Labs Result Diagrams: 01/24/17 07:00 01/24/17 07:00 Labs: Laboratory Results - last 24 hr 01/23/17 01/23/17 01/23/17 12:30 15:05 16:34 WBC RBC Hgb Hct MCV MCH MCHC RDW Plt Count Gran % Lymph % (Auto) [place] % (Auto) Eos % (Auto) Baso % (Auto) Gran # Lymph # [place] # Eos # Baso # Neutrophils % (Manual) Band Neutrophils % Lymphocytes % (Manual) Monocytes % (Manual) Eosinophils % (Manual) Basophils % (Manual) Platelet Evaluation Large Platelets Giant Platelets Poikilocytosis (manual Anisocytosis (manual) Sickle Cells Ovalocytes Sodium Potassium Chloride Carbon Dioxide Anion Gap BUN Creatinine Est GFR ( Amer) Est GFR (Non-Af Amer) POC Glucose (mg/dL) 278 H Random Glucose Calcium Phosphorus Magnesium Total Bilirubin AST ALT Alkaline Phosphatase Lactate Dehydrogenase 599 Total Creatine Kinase 62 Troponin I 0.01 Total Protein Albumin Globulin Albumin/Globulin Ratio Triglycerides Cholesterol LDL Cholesterol Direct HDL Cholesterol TSH 3rd Generation Urine Color Yellow Urine Appearance Clear Urine pH 7.0 Ur Specific [place] 1.020 Urine Protein >=300 H Urine Glucose (UA) Negative Urine Ketones Negative Urine Blood Negative Urine Nitrate Negative Urine Bilirubin Negative Urine Urobilinogen 0.2 Ur Leukocyte Esterase Negative Urine RBC 0 - 2 Urine WBC 0 - 2 Ur Epithelial Cells 0 - 2 Urine Bacteria Neg 01/23/17 01/23/17 01/24/17 21:00 22:12 07:00 WBC 10.1 RBC 6.87 H Hgb 11.4 L Hct 41.1 L MCV 59.8 L MCH 16.6 L MCHC 27.7 L RDW 20.7 H Plt Count 595 H Gran % Mds Coordinator Lymph % (Auto) Mds Coordinator [place] % (Auto) Mds Coordinator Eos % (Auto) Mds Coordinator Baso % (Auto) Mds Coordinator Gran # Mds Coordinator Lymph # Mds Coordinator [place] # Mds Coordinator Eos # Mds Coordinator Baso # Mds Coordinator Neutrophils % (Manual) 83 H Band Neutrophils % 1 Lymphocytes % (Manual) 11 L Monocytes % (Manual) 2 Eosinophils % (Manual) 2 Basophils % (Manual) 1 Platelet Evaluation High Large Platelets Present Giant Platelets Present Poikilocytosis (manual 3+ Anisocytosis (manual) 3+ Sickle Cells 3+ Ovalocytes 2+ Sodium Potassium Chloride Carbon Dioxide Anion Gap BUN Creatinine Est GFR ( Amer) Est GFR (Non-Af Amer) POC Glucose (mg/dL) 76 Random Glucose Calcium Phosphorus Magnesium Total Bilirubin AST ALT Alkaline Phosphatase Lactate Dehydrogenase 612 Total Creatine Kinase 56 Troponin I < 0.01 Total Protein Albumin Globulin Albumin/Globulin Ratio Triglycerides Cholesterol LDL Cholesterol Direct HDL Cholesterol TSH 3rd Generation Urine Color Urine Appearance Urine pH Ur Specific [place] Urine Protein Urine Glucose (UA) Urine Ketones Urine Blood Urine Nitrate Urine Bilirubin Urine Urobilinogen Ur Leukocyte Esterase Urine RBC Urine WBC Ur Epithelial Cells Urine Bacteria 01/24/17 01/24/17 07:00 07:00 WBC RBC Hgb Hct MCV MCH MCHC RDW Plt Count Gran % Lymph % (Auto) [place] % (Auto) Eos % (Auto) Baso % (Auto) Gran # Lymph # [place] # Eos # Baso # Neutrophils % (Manual) Band Neutrophils % Lymphocytes % (Manual) Monocytes % (Manual) Eosinophils % (Manual) Basophils % (Manual) Platelet Evaluation Large Platelets Giant Platelets Poikilocytosis (manual Anisocytosis (manual) Sickle Cells Ovalocytes Sodium 134 Potassium 4.4 Chloride 100 Carbon Dioxide 25 Anion Gap 13 BUN 27 H Creatinine 1.2 Est GFR ( Amer) > 60 Est GFR (Non-Af Amer) 57 POC Glucose (mg/dL) Random Glucose 145 H Calcium 8.8 Phosphorus 3.8 Magnesium 1.9 Total Bilirubin 0.8 AST 35 ALT 42 Alkaline Phosphatase 114 Lactate Dehydrogenase Total Creatine Kinase Troponin I Total Protein 6.2 Albumin 3.6 Globulin 2.6 Albumin/Globulin Ratio 1.4 Triglycerides 105 Cholesterol 131 LDL Cholesterol Direct 78 HDL Cholesterol 37 TSH 3rd Generation 2.50 Urine Color Urine Appearance Urine pH Ur Specific [place] Urine Protein Urine Glucose (UA) Urine Ketones Urine Blood Urine Nitrate Urine Bilirubin Urine Urobilinogen Ur Leukocyte Esterase Urine RBC Urine WBC Ur Epithelial Cells Urine Bacteria Assessment & Plan (1) Coronary artery disease Status: Chronic (2) CHF (congestive heart failure) Status: Acute (3) Type II diabetes mellitus Status: Chronic (4) Renal tubular acidosis, type IV Status: Chronic - Assessment and Plan (Free Text) Plan: cardiology consult, IV Lasix, monitor lytes - Date & Time Date: 01/24/17 Time: 12:45
--- NOTE | 2017-01-24 18:58 | PN ---
DATE: 01/23/2017 REASON FOR THE CONSULTATION: Chest pain and history of coronary artery disease. BRIEF CLINICAL HISTORY: This is an 86-year-old admitted with past medical history significant for congestive heart failure being followed by Dr. Villa, history of PTCA of right coronary artery in 10/2012, last followup in June 2013 was negative, yesterday admitted with chest pain. Since Dr. Villa has moved out, the patient sees Dr. Faulkner. Yesterday admitted with chest pain, troponin negative, feels much better. PHYSICAL EXAMINATION: GENERAL: Lying flat. No chest pain. VITAL SIGNS: Temperature afebrile, heart rate 82, and blood pressure 149/84. HEENT: PERRLA. Extraocular muscles are intact. NECK: Supple. No carotid bruits or thyromegaly. HEART: S1 and S2. Regular. CHEST: Clear to auscultation. ABDOMEN: Soft. EXTREMITIES: Clubbing and cyanosis negative. LABORATORY DATA: Blood workup as follows; WBC 8.1, hemoglobin 11.5, hematocrit 41.1, and platelet count 595. Chemistry shows sodium 134, potassium 4.4, chloride 100, carbon dioxide 25, anion gap of 13, BUN 27, and creatinine 1.2. Troponin 0.01 negative. IMPRESSION: 1. Chest pain, atypical, so far no evidence of acute myocardial infarction. 2. History of coronary artery disease, status post percutaneous transluminal coronary angioplasty of right coronary artery in 10/2012. 3. History of recent echo on 11/28/2016 with ejection fraction of 61%, mild aortic regurgitation, mild to moderate mitral regurgitation, mild tricuspid regurgitation, systolic pressure of 27. RECOMMENDATIONS: We will schedule a stress test tomorrow. Continue medications, baseline. Continue Lasix daily. Continue aspirin, continue metoprolol, continue enoxaparin. Since there is no evidence of IA, we will change to DVT prophylaxis and change him tomorrow. Further recommendation after the stress test. We will follow with you. Thank you Dr. Mitchell for providing the opportunity in taking care patient, Adi Delgado. We will keep n.p.o. for stress test tomorrow. Swetha Jimenez MD
[2017-01-25] MEDS: Insulin Reg-LOW-Coverage SC SCH ×4 (08:09→21:31)
--- NOTE | 2017-01-25 08:52 | CON ---
DATE: 01/23/2017 REASON FOR CONSULTATION: Chest pain, coronary artery disease and a past history of polycythemia vera, Jehovah witness. BRIEF CLINICAL HISTORY: This is an 86-year-old male with past medical history significant for congestive heart failure, initially being followed by Dr. Villa, history of PTCA, right coronary artery in 08/2012 and then followed a stress test 06/2013 is negative, came in with a complaint of chest pain, non-radiating. Family says there is a lot of stress with the chest pain. The patient complains of some dyspnea on exertion, but says he walks 2 miles, no chest pain. PAST MEDICAL HISTORY: Significant for polycythemia vera, Jehovah witness, congestive heart failure, BP, diabetes, coronary artery status post PTCA of the right coronary artery in 10/[address] Villa group. PREVIOUS CARDIAC WORK: As follows, the patient had a cardiac catheterization and angioplasty in [facility]. In 09/2012, the right coronary artery. Following that, the patient had stress test in 06/2013 that showed no reversible ischemia. At that time, an echo was done in Dr. Villa's office shows ejection fraction preserved, trace MR, trace TR, ejection fraction 55%. The patient had repeat echo on 11/28/2016, that showed left ventricular size is normal, borderline concentric LVH, normal LV function. Ejection fraction within normal limit. Calculated ejection fraction 61%, mild aortic regurgitation, no aortic stenosis, [id number] mitral regurgitation, mild tricuspid regurgitation, systolic pressure of 37. Prior to that, the patient had another echo on 07/11/2015 that shows normal sinus, concentric LVH, ejection 40% to 45%, mild aortic regurgitation, mild tricuspid regurgitation, systolic pressure 23, moderate mitral regurgitation. SOCIAL HISTORY: Denies any history of alcohol abuse. ALLERGY: PENICILLIN GIVES ANAPHYLACTIC REACTION. CURRENT MEDICATION: The patient is taking at home Flomax, multivitamin, metformin, isosorbide, glimepiride, Neurontin, Lasix, Florinef, Proscar, and aspirin. REVIEW OF SYSTEMS: A 14-point review of system negative except as per HPI. PHYSICAL EXAMINATION VITAL SIGNS: Temperature afebrile, heart rate 69, blood pressure 134/68. HEENT: PERRLA, extraocular muscles intact. NECK: Supple. No carotid bruit. No thyromegaly. CHEST: Clear to auscultation. HEART: S1 and S2, regular. ABDOMEN: Soft. EXTREMITIES: Clubbing and cyanosis negative. BLOOD WORKUP: As follows: WBC 12, hemoglobin 11.7, hematocrit 41.7, platelet count 648. Chemistry shows sodium of 130, potassium 4.5, chloride 98, carbon dioxide 25, anion gap of 14, BUN 19, and creatinine 1.2. BNP 6520. Troponin is 0.01 negative. EKG shows normal sinus, incomplete left bundle. No acute ST-T wave changes. Poor R-wave progression. No change from 07/2016. Chest x-ray shows mild pulmonary vascular congestion, mild blunting of the angle and the poor under-penetrated films cannot comment for sure about the CHF. IMPRESSION: An 86-year-old male with past medical history significant for coronary artery disease, status post percutaneous transluminal coronary angioplasty of right coronary artery in 10/2012. Followup stress test in 06/2013 was negative. History of diabetes, hypertension, hyperlipidemia, polycythemia vera, Anabaptist, admitted with chest pain, mild congestive changes noted as there are elevated BNP. No acute ST-T wave changes noted. So far, troponin is negative. RECOMMENDATION: Given the multiple risk factors for coronary artery disease, I suggest rule out acute coronary syndrome, ischemia, gentle diuretics, resume medications, treat his unstable angina and if troponin remains negative, consider stress test. Last echo the patient had in 11/2016 that shows normal left ventricular function, 11/28/2016, that showed normal left ventricular function, calculate ejection fraction 61%, mild aortic regurgitation, no aortic stenosis, [id number] mitral regurgitation, mild tricuspid regurgitation, systolic pressure 37. No significant valvular heart disease. Okay with the gentle diuretics. We will follow with you. Thank you Dr. Mitchell for the opportunity in taking care of patient.. Also, we will get a lipid profile, TSH, and hemoglobin A1c. Swetha Jimenez MD
[2017-01-25] MEDS ORDERED: Aminophylline 25 mg/ml Inj ONE (09:07)
[2017-01-25] MEDS: Enoxaparin 30 mg Syringe SC SCH (11:19)
[2017-01-25] MEDS: Nitroglycerin 2% Ointment Foilpak UD TOP SCH (12:50)
--- NOTE | 2017-01-25 14:05 | CP.PCM.PN ---
Subjective - Date & Time of Evaluation Date of Evaluation: 01/25/17 Time of Evaluation: 10:00 - Subjective Subjective: no cp, no sob Objective - Vital Signs/Intake and Output Vital Signs (last 24 hours): Temp Pulse Resp BP Pulse Ox 97.6 F 86 16 160/84 H 99 01/25/17 12:00 01/25/17 12:00 01/25/17 12:00 01/25/17 12:00 01/25/17 06:00 - Medications Medications: Current Medications Aspirin (Ecotrin) 81 mg PO DAILY COUNTS INCLUDE 234 BEDS AT THE [facility] Last Admin: 01/25/17 11:18 Dose: 81 mg Enoxaparin Sodium (Lovenox) 30 mg SC DAILY COUNTS INCLUDE 234 BEDS AT THE [facility] PRN Reason: Protocol Last Admin: 01/25/17 11:19 Dose: 30 mg Furosemide (Lasix) 40 mg PO DAILY COUNTS INCLUDE 234 BEDS AT THE [facility] Last Admin: 01/25/17 11:26 Dose: Not Given Glimepiride (Amaryl) 4 mg PO DAILY COUNTS INCLUDE 234 BEDS AT THE [facility] Last Admin: 01/25/17 11:18 Dose: 4 mg Insulin Human Regular (Humulin R Low) 0 units SC [facility] COUNTS INCLUDE 234 BEDS AT THE [facility] PRN Reason: Protocol Last Admin: 01/25/17 12:38 Dose: 2 units Isosorbide Mononitrate (Imdur) 60 mg PO DAILY COUNTS INCLUDE 234 BEDS AT THE [facility] Last Admin: 01/25/17 11:18 Dose: 60 mg Lisinopril (Zestril) 10 mg PO DAILY COUNTS INCLUDE 234 BEDS AT THE [facility] Metoprolol Tartrate (Lopressor) 25 mg PO BID COUNTS INCLUDE 234 BEDS AT THE [facility] Last Admin: 01/25/17 11:18 Dose: 25 mg - Labs Labs: 01/24/17 07:00 01/24/17 07:00 PT 11.6 Seconds (9.9-11.8) 01/23/17 09:10 INR 1.07 (0.93-1.08) 01/23/17 09:10 APTT 31.0 Seconds (23.7-30.8) H 01/23/17 09:10 - Respiratory Exam Respiratory Exam: Clear to Ausculation Bilateral, NORMAL BREATHING PATTERN - Cardiovascular Exam Cardiovascular Exam: REGULAR RHYTHM - GI/Abdominal Exam GI & Abdominal Exam: Soft, Normal Bowel Sounds - Extremities Exam Extremities Exam: Normal Inspection - Neurological Exam Neurological Exam: Alert, Awake, Oriented x3 Assessment and Plan (1) Coronary artery disease Status: Chronic (2) CHF (congestive heart failure) Status: Acute (3) Type II diabetes mellitus Status: Chronic (4) Renal tubular acidosis, type IV Status: Chronic - Assessment and Plan (Free Text) Plan: for stress test today
--- NOTE | 2017-01-25 14:14 | PN ---
DATE: 01/25/2017 REASON FOR THE CONSULTATION: Followup of chest pain and history of coronary artery disease. BRIEF CLINICAL HISTORY: This is an 86-year-old male with history of PTCA of right coronary 10/[address] Villa, negative stress test in 06/2013, admitted with chest discomfort, so far troponin is negative. SUBJECTIVE: The patient denies any chest pain today. PHYSICAL EXAMINATION: GENERAL: Patient is lying flat. Denies any chest pain. Awaiting to go for a stress test. VITAL SIGNS: Temperature afebrile, heart rate 80, and blood pressure 153/81. HEENT: PERRLA. Extraocular muscles are intact. NECK: Supple. No carotid bruits or thyromegaly. CHEST: Clear to auscultation. HEART: S1 and S2. Regular. ABDOMEN: Soft. EXTREMITIES: Clubbing and cyanosis negative. LABORATORY DATA: Blood workup as follows; WBC , hemoglobin , hematocrit 41.1, and platelet count 595. Chemistry shows sodium 134, potassium 4.4, chloride 100, carbon dioxide 25, anion gap of 13, BUN 27, and creatinine 1.2. Total protein 6.2, albumin 3.7, and albumin-globulin ratio 1.4. Triglycerides 105, cholesterol 131, LDL 78, and HDL 37. TSH 2.5. Hemoglobin A1c 7.4. IMPRESSION: Poorly controlled diabetes, hypertension, hyperlipidemia, coronary artery disease, status post stent in right coronary artery in 10/2012 and repeated stress test in 06/2013 was negative admitted with recurrent chest pain and so far troponin is negative. The patient had echocardiography done on 11/28/2016 that shows left ventricular function is normal, borderline concentric LVH, estimated ejection fraction of 61%, mild aortic regurgitation, no aortic stenosis, [id number]-fp-[id number] mitral regurgitation, mild tricuspid regurgitation, and right ventricular systolic pressure of 37. RECOMMENDATIONS: We will do the Lexiscan today. Further recommendation after the Lexiscan. We will follow with you. We will adjust antihypertensive medication, aggressive control of diabetes, and goal is to keep hemoglobin A1c around 6 or 6.5 because the elder patient do not want to get hypoglycemic because of diabetic and we will start low dose of lisinopril to prevent long-term complication, diabetes also control the better blood pressure, started 10 mg from today. Continue DVT prophylaxis. Continue aspirin. Continue atorvastatin. Continue Imdur 60 mg daily. We will follow with you. Further recommendation after the stress test. Thank you Dr. Mitchell for providing the opportunity in taking care of Monico Mary. Swetha Jimenez MD
--- NOTE | 2017-01-25 21:30 | CARD ---
APPROVED REPORT Protocol: LEXISCAN Test Type: Lexiscan Sestamibi Stress Test Attending Physician: Dr. Swetha Jimenez Referring Physician: Dr. Julio C Mitchell Test Indications: Chest Pain, SOB Height:5 ft 2 in Weight:147lbs Medications: Aspirin,Lovenox,Furosemide, Glimepiride,Human, Imdur, Metoprolol Medical History: 86 y/o male. Hx of chest pain, stent,hypertension, diabetic. Target HR: 133 bpm Resting ECG: normal Resting Heart Rate: 83 bpm Resting Blood Pressure: 130/90mmHg Submaximum (85%): 113 bpm PROCEDURE Pharmacologic stress testing was performed using 0.4mg per 5ml of regadenoson given intravenously over 7-10 seconds. Reversal agent aminophyline 100 mg, given intravenously for Chest Pain. POST EXERCISE Reason for Termination: Protocol completed Target HR: No Max HR: 83 bpm 74% of Maximum Predicted HR: 133 bpm Exercise duration: 00:30 min:sec, 0 Stage Exercise capacity: 1.0METs Max Blood Pressure: 152/80mmHg Blood Pressure response to exercise: normal resting BP - appropriate response Heart Rate response to exercise: appropriate Chest Pain: No, none Angina index: 0 Arrhythmia: No, none ST Change: No, none Deviation: 0 mm TEST SUMMARY [id number]. INFUSIONDOSE 100:[id number]/.0. [id number]. INTERPRETATION Stress EKG Conclusion: Negative IV Lexiscan for Chest pain and for Ischemia, Nuclear scan to follow. Signed by Swetha Jimenez Electronically Approved: 01/25/2017 09:31:50 EXAM: Myocardial Perfusion REST/STRESS Stress Test Type: Pharmacologic Imaging Protocol Rest Spect myocardial perfusion imaging was performed in supine position 45 minutes following the injection of 10.8 mCi of Tc-99 Myoview. At peak stress, the patient was injected intravenously with 30.5mCi of Tc-99 tetrofosmin after an infusion time of 0 minutes and 10 seconds. Gated Stress Spect was performed 45 minutes after intravenous Tc-99 Myoview injection. The images were gated to evaluate regional wall motion and calculate ventricular ejection fraction.Images were reconstructed using backfilter projection method in short horizontal and verticle long axis. Spect slices were generated. LV Perfusion The quality of the study is good. The left ventricle is mildly enlarged in size with thickened myocardium. The right ventricle is unremarkable. The lung uptake is within normal limits. The distribution of tracer reveals mildly and diffusely decreased perfusion in the inferior wall on the stress study. The remainder of the LV myocardium is unremarkable. The rest myocardial perfusion study shows no significant change. Wall Motion Wall motion study shows diffuse hypokinesis of the left ventricle. LVEF = 37%. Conclusion 1. Abnormal SPECT myocardial perfusion study. 2. Fixed, inferior defect is most likely due to diaphragmatic attenuation. 3. Mild LV dysfunction with diffuse hypokinesis. 4. The above findings are suggestive of cardiomyopathy.
[2017-01-26 04:09] VITALS: O2SAT 97
[2017-01-26 05:46] VITALS: PULSE 79; RESP 20; TEMP 97.8
[2017-01-26] MEDS: Insulin Reg-LOW-Coverage SC SCH ×2 (08:30→12:30)
[2017-01-26] MEDS: Enoxaparin 30 mg Syringe SC SCH (09:38)
[2017-01-26 09:39] VITALS: BP 142/76
--- NOTE | 2017-01-26 12:46 | PN ---
DATE: 01/26/2017 REASON FOR THE CONSULTATION: Followup of chest pain and history of coronary artery disease. SUBJECTIVE: The patient denies any chest pain, shortness of breath, or any palpitation, sitting on the chair. PHYSICAL EXAMINATION GENERAL: Feels okay, not in apparent distress, sitting on the chair. VITAL SIGNS: Temperature afebrile, heart rate 70, and blood pressure 156/79. HEENT: PERRLA. Extraocular muscles are intact. NECK: Supple. No carotid bruits or thyromegaly. CHEST: Clear to auscultation. HEART: S1 and S2. Regular. ABDOMEN: Soft. EXTREMITIES: Clubbing and cyanosis negative. LABORATORY DATA: Blood workup as follows; WBC 10.8, hemoglobin 11.8, hematocrit 41.1, and platelet count 595. Chemistry shows sodium 134, potassium 4.4, chloride 100, carbon dioxide 25, anion gap of 13, BUN 27, and creatinine 1.2. Total protein 6.2, albumin 3.6, and albumin-globulin ratio 1.4. Triglycerides 104, total cholesterol 131, LDL 78, and HDL 37. TSH 2.5. Hemoglobin A1c 7.4. IMPRESSION: An 86-year-old male with past medical history significant for diabetes, hypertension, hyperlipidemia, history of coronary artery disease, status post stent in right coronary artery in 10/2012, R[facility] by Dr. [facility]. Followup stress test in 06/2016 was negative, admitted with a chest pain, mild discomfort. Yesterday, patient underwent abnormal myocardial perfusion study, fixed defect most likely due to diaphragm attenuation, diffuse hypokinesis noted, ejection fraction 37%. Last echo 11/28/2016 shows ejection fraction within normal limit. No aortic stenosis, aerd-fg-vlbjinut mitral regurgitation, mild tricuspid regurgitation, and systolic pressure of 37. Patient had a prior echo that is in 07/11/2015 that showed ejection fraction of 40-45% that is inconsistent with the most recent stress test. Actually in 07/2016, patient's ejection fraction was calculated as 38% consistent with the most recent stress test, so possibly cardiomyopathy, fixed defect, no reversible ischemia , history of coronary artery disease, diabetes, hypertension, hyperlipidemia, uncontrolled diabetes. RECOMMENDATION: Aggressive medical treatment. We will discontinue telemetry and continue aspirin, continue isosorbide dinitrate, continue metoprolol, continue lisinopril. We will follow with you. Medical treatment recommended So far, troponin also negative. 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 Thank you doctor for providing us the opportunity in taking of the patient, Monico Caban. Swetha Jimenez MD
--- NOTE | 2017-01-26 13:57 | CP.PCM.DIS ---
Provider - Provider Date of Admission: 01/23/17 11:55 Attending physician: Julio C Mitchell JD, MD Time Spent in preparation of Discharge (in minutes): 40 Diagnosis - Discharge Diagnosis (1) Coronary artery disease Status: Chronic (2) CHF (congestive heart failure) Status: Acute (3) Type II diabetes mellitus Status: Chronic (4) Renal tubular acidosis, type IV Status: Chronic Hospital Course - Lab Results Lab Results: Most Recent Lab Values WBC 10.1 10^3/ul (4.5-11.0) 01/24/17 07:00 RBC 6.87 10^6/uL (3.5-6.1) H 01/24/17 07:00 Hgb 11.4 gm/dL (14.0-18.0) L 01/24/17 07:00 Hct 41.1 % (42.0-52.0) L 01/24/17 07:00 MCV 59.8 fL (80.0-105.0) L 01/24/17 07:00 MCH 16.6 pg (25.0-35.0) L 01/24/17 07:00 MCHC 27.7 g/dl (31.0-37.0) L 01/24/17 07:00 RDW 20.7 % (11.5-14.5) H 01/24/17 07:00 Plt Count 595 10^3/uL (120.0-450.0) H 01/24/17 07:00 Gran % Design Supervisor 01/24/17 07:00 Lymph % (Auto) Design Supervisor 01/24/17 07:00 [place] % (Auto) Design Supervisor 01/24/17 07:00 Eos % (Auto) Design Supervisor 01/24/17 07:00 Baso % (Auto) Design Supervisor 01/24/17 07:00 Gran # Design Supervisor 01/24/17 07:00 Lymph # Design Supervisor 01/24/17 07:00 [place] # Design Supervisor 01/24/17 07:00 Eos # Design Supervisor 01/24/17 07:00 Baso # Design Supervisor 01/24/17 07:00 Neutrophils % (Manual) 83 % (50.0-70.0) H 01/24/17 07:00 Band Neutrophils % 1 % (0-2) 01/24/17 07:00 Lymphocytes % (Manual) 11 % (22.0-35.0) L 01/24/17 07:00 Monocytes % (Manual) 2 % (1.0-6.0) 01/24/17 07:00 Eosinophils % (Manual) 2 % (0.0-3.0) 01/24/17 07:00 Basophils % (Manual) 1 % (0.0-1.0) 01/24/17 07:00 Platelet Evaluation High (NORMAL) 01/24/17 07:00 Large Platelets Present 01/24/17 07:00 Giant Platelets Present 01/24/17 07:00 Poikilocytosis (manual 3+ 01/24/17 07:00 Anisocytosis (manual) 3+ 01/24/17 07:00 Sickle Cells 3+ 01/24/17 07:00 Ovalocytes 2+ 01/24/17 07:00 PT 11.6 Seconds (9.9-11.8) 01/23/17 09:10 INR 1.07 (0.93-1.08) 01/23/17 09:10 APTT 31.0 Seconds (23.7-30.8) H 01/23/17 09:10 Sodium 134 mmol/L (132-148) 01/24/17 07:00 Potassium 4.4 mmol/L (3.6-5.0) 01/24/17 07:00 Chloride 100 mmol/L (98-107) 01/24/17 07:00 Carbon Dioxide 25 mmol/L (21-33) 01/24/17 07:00 Anion Gap 13 (10-20) 01/24/17 07:00 BUN 27 mg/dL (7-21) H 01/24/17 07:00 Creatinine 1.2 mg/dL (0.5-1.4) 01/24/17 07:00 Est GFR ( Amer) > 60 01/24/17 07:00 Est GFR (Non-Af Amer) 57 01/24/17 07:00 POC Glucose (mg/dL) 263 mg/dL (65-110) H 01/25/17 16:35 Random Glucose 145 mg/dL (70-110) H 01/24/17 07:00 Hemoglobin A1c 7.4 % (4.2-6.5) H 01/24/17 07:00 Calcium 8.8 mg/dL (8.4-10.5) 01/24/17 07:00 Phosphorus 3.8 mg/dL (2.5-4.5) 01/24/17 07:00 Magnesium 1.9 mg/dL (1.7-2.2) 01/24/17 07:00 Total Bilirubin 0.8 mg/dL (0.2-1.3) 01/24/17 07:00 AST 35 U/L (15-59) 01/24/17 07:00 ALT 42 U/L (7-56) 01/24/17 07:00 Alkaline Phosphatase 114 U/L (38-133) 01/24/17 07:00 Lactate Dehydrogenase 612 U/L (333-699) 01/23/17 21:00 Total Creatine Kinase 56 U/L (35-230) 01/23/17 21:00 Troponin I < 0.01 ng/mL 01/23/17 21:00 NT-Pro-B Natriuret Pep 6520 pg/mL (0-450) H 01/23/17 09:10 Total Protein 6.2 g/dL (5.8-8.3) 01/24/17 07:00 Albumin 3.6 g/dL (3.0-4.8) 01/24/17 07:00 Globulin 2.6 gm/dL 01/24/17 07:00 Albumin/Globulin Ratio 1.4 (1.1-1.8) 01/24/17 07:00 Triglycerides 105 mg/dL (35-160) 01/24/17 07:00 Cholesterol 131 mg/dL (130-200) 01/24/17 07:00 LDL Cholesterol Direct 78 mg/dL (0-129) 01/24/17 07:00 HDL Cholesterol 37 mg/dL (29-60) 01/24/17 07:00 Amylase 77 U/L (35-125) 01/23/17 09:10 Lipase 51 U/L (23-300) 01/23/17 09:10 TSH 3rd Generation 2.50 mIU/mL (0.46-4.68) 01/24/17 07:00 Urine Color Yellow (YELLOW) 01/23/17 12:30 Urine Appearance Clear (CLEAR) 01/23/17 12:30 Urine pH 7.0 (4.7-8.0) 01/23/17 12:30 Ur Specific Isom 1.020 (1.005-1.035) 01/23/17 12:30 Urine Protein >=300 mg/dL (<30 mg/dL) H 01/23/17 12:30 Urine Glucose (UA) Negative mg/dL (NEGATIVE) 01/23/17 12:30 Urine Ketones Negative mg/dL (NEGATIVE) 01/23/17 12:30 Urine Blood Negative (NEGATIVE) 01/23/17 12:30 Urine Nitrate Negative (NEGATIVE) 01/23/17 12:30 Urine Bilirubin Negative (NEGATIVE) 01/23/17 12:30 Urine Urobilinogen 0.2 E.U./dL (<1 E.U./dL) 01/23/17 12:30 Ur Leukocyte Esterase Negative Douglas/uL (NEGATIVE) 01/23/17 12:30 Urine RBC 0 - 2 /hpf (0-2) 01/23/17 12:30 Urine WBC 0 - 2 /hpf (0-6) 01/23/17 12:30 Ur Epithelial Cells 0 - 2 /hpf (0-5) 01/23/17 12:30 Urine Bacteria Neg (NEG) 01/23/17 12:30 Discharge Exam - Head Exam Head Exam: ATRAUMATIC, NORMOCEPHALIC - Respiratory Exam Respiratory Exam: Clear to PA & Lateral, NORMAL BREATHING PATTERN - Cardiovascular Exam Cardiovascular Exam: REGULAR RHYTHM - GI/Abdominal Exam GI & Abdominal Exam: Normal Bowel Sounds, Soft - Extremities Exam Extremities exam: pedal edema - Neurological Exam Neurological exam: Alert, Oriented x3 - Skin Skin Exam: Dry, Warm Discharge Plan - Follow Up Plan Condition: FAIR Disposition: HOME/ ROUTINE Instructions: Heart Failure (DC), Heart Failure (GEN), Pacemaker (DC), Pacemaker (GEN), Pulmonary Edema (DC), Pulmonary Edema (GEN), Ascites (DC), Ascites (GEN), Chest Pain (DC), Chest Pain (GEN)
--- NOTE | 2017-01-27 11:51 | PQF CHF ---
This form is a permanent part of the medical record Dr. Jimenez, Patient presented to ED with chest pain known with CAD. Also with past medical history for CHF. Please indicate the severity and type of CHF. Please see choices below. Thank you. Clarification of your documentation is requested to better reflect the severity of illness and intensity of treatment of your patient. Indicators present [] Diagnosis of CHF and/or history of CHF [] BNP > 200 [] Imaging Finding of Pulmonary Edema /Pleural Effusions [] Fluid/Volume Overload [] Pitting edema [] Ejection Fraction < 40% (Indicative of Systolic Heart Failure) [] Ejection Fraction > 40% (Indicative of Diastolic Heart Failure) [] Dyspnea / Orthopenea / Paroxysmal Nocturnal Dyspnea [] Other: Location in the medical record that reflects the above clinical findings: [] Treatment Provided: [] PHYSICIAN'S RESPONSE Based on your medical judgment of the clinical indicators outlined above, are you treating this patient for a known or suspected: [] Acute CHF [] Systolic [] Diastolic [] Combined [] Chronic CHF [] Systolic [] Diastolic [] Combined [x] Acute on Chronic CHF [x]Systolic [] Diastolic [] Combined [] CHF due hypertension [] Acute systolic []Chronic systolic [] Acute/ chronic systolic [] Other, please indicate: [] [] If Unable to Determine, please check the box, sign and date. Present On Admission (POA) Indicator: [] Present at the time of admission [] Not present at the time of admission [] Clinically Undetermined In responding to this query, please exercise your independent professional judgment. The fact that a question is asked does not imply that any particular answer is desired or expected. Thank you for your clarification on this documentation. If you have any questions please call:[ ] * Thank you, [ ]MAIN CELISheat and frost insulator helper NEREIDA
== END 2017-01-26 16:26 | disposition home or self-care (01) | DRG 302 ==
LOC: ED 09:00 → ERH 11:55 → 2RNO 16:10
PROVIDERS: ADMIT Internal Medicine; ATTEND Internal Medicine
DX: I25.10 Atherosclerotic heart disease of native coronary artery without angina pectoris (principal); I50.23 Acute on chronic systolic (congestive) heart failure; I11.0 Hypertensive heart disease with heart failure; E11.65 Type 2 diabetes mellitus with hyperglycemia; D45 Polycythemia vera; I08.3 Combined rheumatic disorders of mitral, aortic and tricuspid valves; N25.89 Other disorders resulting from impaired renal tubular function; E78.5 Hyperlipidemia, unspecified; Z95.5 Presence of coronary angioplasty implant and graft; Z79.84 Long term (current) use of oral hypoglycemic drugs; Z88.0 Allergy status to penicillin; I25.5 Ischemic cardiomyopathy

== ENCOUNTER 2017-06-11 15:25 | Inpatient (IN) | payer OTHER ==
[2017-06-11 15:30] VITALS: BMI 27.4
[2017-06-11 16:54] LABS: BASO # 0.06 K/mm3 (0.0-2.0); BASO % 0.6 % (0.0-3.0); EOS # 0.3 (0.0-0.7); EOS % 3.2 % (1.5-5.0); GRAN % 71.4 % (50.0-68.0); HEMATOCRIT 37.4 % (42.0-52.0); LYMPH % 19.2 % (22.0-35.0); MEAN CELL VOLUME 59.8 fl (80.0-105.0); MEAN CORPUSCULAR HEMOGLOBIN 15.8 pg (25.0-35.0); MEAN CORPUSCULAR HGB CONC 26.5 g/dl (31.0-37.0); MONO # 0.6 (0.1-0.6); MONO % 5.6 % (1.0-6.0); PLATELET COUNT 568 10^3/uL (120.0-450.0); RED CELL DISTRIBUTION WIDTH 20.4 % (11.5-14.5); WHITE BLOOD COUNT 10.2 10^3/ul (4.5-11.0)
--- NOTE | 2017-06-11 17:07 | RAD ---
HISTORY: 86yoM with chest pain/sob COMPARISON: 01/23/2017 TECHNIQUE: Chest PA and lateral FINDINGS: LUNGS: Underlying interstitial lung disease the severity of which has improved compared to the prior study PLEURA: No significant pleural effusion identified. No pneumothorax apparent. CARDIOVASCULAR: No radiographic findings to suggest acute or significant cardiovascular disease. OSSEOUS STRUCTURES: No significant abnormalities. VISUALIZED UPPER ABDOMEN: Normal. OTHER FINDINGS: None. IMPRESSION: Improving interstitial edema/lung disease likely cardiogenic. No focal discrete infiltrates.
[2017-06-11 17:09] LABS: ALB/GLOB RATIO 1.4 (1.1-1.8); ALKALINE PHOSPHATASE 110 U/L (38-126); ALT/SGPT 37 U/L (7-56); AST/SGOT 37 U/L (17-59); BILIRUBIN,TOTAL 0.7 mg/dL (0.2-1.3); BLOOD UREA NITROGEN 27 mg/dL (7-21); CALCIUM 9.1 mg/dL (8.4-10.5); CARBON DIOXIDE 27 mmol/L (21-33); CHLORIDE 94 mmol/L (98-107); GFR AFRICAN-AMERICAN 46; GLUCOSE,RANDOM 194 mg/dL (70-110); MAGNESIUM 1.8 mg/dL (1.7-2.2); POTASSIUM 4.5 mmol/L (3.6-5.0); SODIUM 133 mmol/L (132-148); TOTAL PROTEIN 7.3 g/dL (5.8-8.3)
[2017-06-11 17:13] LABS: INR 1.13 (0.93-1.08); PARTIAL THROMBOPLASTIN TIME 33.7 Seconds (25.1-36.5)
[2017-06-11 17:19] LABS: TROPONIN I < 0.01 ng/mL
--- NOTE | 2017-06-11 17:22 | ED PDOC ---
Arrival/HPI - General Chief Complaint: Chest Pain Time Seen by Provider: 06/11/17 15:52 Historian: Patient, Family - History of Present Illness Narrative History of Present Illness (Text): 86yoM, who states having difficulty breathing, chest pain since last night. sleeps on 1 pillow. no n/v/plasencia/dizziness/abd pain/numbness/tingling/travel/prior blood clots/prior cancer hx. 06/11/17 17:19 Past Medical History - Provider Review Nursing Documentation Reviewed: Yes - Travel History Have you recently traveled outside [place] w/in the past 3 mons?: No - Infectious Disease Hx of Infectious Diseases: None - Cardiac Hx Cardiac Disorders: Yes (cad) Hx Circulatory Problems: Yes Hx Congestive Heart Failure: Yes Hx Peripheral Edema: Yes Hx Peripheral Vascular Disease: Yes - Pulmonary Hx Respiratory Disorders: Yes (2ND HAND SMOKE) - Neurological Hx Neurological Disorder: Yes (NEUROPATHY) - HEENT Hx HEENT Disorder: Yes Hx Cataracts: Yes (bilateral 1 1/2 yrs ago) Other/Comment: wears eyeglasses - Endocrine/Metabolic Hx Endocrine Disorders: Yes Hx Diabetes Mellitus Type 2: Yes - Hematological/Oncological Hx Blood Disorders: Yes Hx Anemia: Yes Other/Comment: jehovah witness no blood transfusions - Integumentary Hx Dermatological Disorder: Yes Other/Comment: redness to lle,BILATERAL LE EDEMA PITTING +2 - Musculoskeletal/Rheumatological Hx Musculoskeletal Disorders: Yes Hx Falls: Yes (LAST FELL 15 D AGO.TRIPPED.) Hx Unsteady Gait: Yes - Gastrointestinal Hx Gastrointestinal Disorders: Yes Hx Gastroesophageal Reflux: Yes - Genitourinary/Gynecological Hx Genitourinary Disorders: Yes Hx Prostate Problems: Yes (enlarged takees flomax) - Psychiatric Hx Emotional Abuse: No Hx Physical Abuse: No Hx Substance Use: No - Surgical History Hx Cardiac Catheterization: Yes (appx 15 yrs ago) Hx Coronary Stent: Yes Other/Comment: cardiac stent - Anesthesia Hx Anesthesia Reactions: No Hx Malignant Hyperthermia: No - Suicidal Assessment Feels Threatened In Home Enviroment: No Family/Social History Family/Social History: No Known Family HX Smoking Status: Never Smoked Hx Alcohol Use: No Hx Substance Use: No Hx Substance Use Treatment: No Allergies/Home Meds Allergies/Adverse Reactions: Allergies Penicillins Allergy (Verified 06/11/17 15:30) RASH Home Medications: Home Meds Medication Instructions Recorded Confirmed Tamsulosin [Flomax] 0.4 mg PO DAILY 09/19/12 06/11/17 Metformin HCl [Glucophage] 1,000 mg PO BID 10/08/15 06/11/17 Multivitamin [One Daily] 1 tab PO DAILY 10/08/15 06/11/17 Famotidine [Heartburn Prevention] 20 mg PO DAILY 11/27/16 06/11/17 Finasteride [Proscar] 5 mg PO DAILY 11/27/16 06/11/17 Gabapentin [Neurontin] 100 mg PO TID 11/27/16 06/11/17 Isosorbide Dinitrate 30 mg PO DAILY 11/27/16 06/11/17 Furosemide [Lasix] 20 mg PO DAILY 01/23/17 06/11/17 Review of Systems - Review of Systems Constitutional: Normal Eyes: Normal ENT: Normal Respiratory: Normal, SOB Cardiovascular: Normal, Chest Pain Gastrointestinal: Normal Genitourinary Male: Normal Musculoskeletal: Normal Skin: Normal Neurological: Normal Endocrine: Normal Hemo/Lymphatic: Normal Psychiatric: Normal Physical Exam Vital Signs Reviewed: Yes Vital Signs Temp Pulse Resp BP Pulse Ox 06/11/17 17:57 153/85 H 06/11/17 17:47 70 18 154/80 H 100 06/11/17 17:44 154/80 H 06/11/17 16:59 76 18 149/79 100 06/11/17 15:37 77 18 157/82 H 100 06/11/17 15:33 97.9 F 78 18 157/82 H 100 Temperature: Afebrile Blood Pressure: Hypertensive Pulse: Regular Respiratory Rate: Normal Appearance: Positive for: Well-Appearing Pain Distress: None Mental Status: Positive for: Alert and Oriented X 3 - Systems Exam Head: Present: Atraumatic, Normocephalic Pupils: Present: PERRL Extroacular Muscles: Present: EOMI Conjunctiva: Present: Normal Ears: Present: Normal Mouth: Present: Moist Mucous Membranes Pharnyx: Present: Normal Nose (External): Present: Atraumatic Nose (Internal): Present: Normal Inspection Neck: Present: Normal Range of Motion Respiratory/Chest: Present: Clear to Auscultation, Good Air Exchange Cardiovascular: Present: Regular Rate and Rhythm Abdomen: No: Tenderness, Distention, Normal Bowel Sounds, Peritoneal Signs, Rebound, Guarding, McBurney's Point Tender, Rovsing's Sign Present, Hernias, Feeding Tubes, Ostomy Tubes, Mass/Organomegaly, Scars, Other Back: Present: Normal Inspection Upper Extremity: Present: Edema, Other Lower Extremity: Present: Edema. No: Normal Inspection, CALF TENDERNESS, NORMAL PULSES, Cyanosis, Normal ROM, Evie's Sign, Tenderness, Swelling, Erythema, Deformity, Temperature Abnormalties, Neurovascularly Intact, Capillary Refill < 2 s, Other Neurological: Present: GCS=15, CN II-XII Intact, Speech Normal Skin: Present: Warm, Normal Color Psychiatric: Present: Alert, Oriented x 3, Normal Insight, Normal Concentration Medical Decision Making ED Course and Treatment: 86yoM, with sob/chest pain. 06/11/17 17:22 CHEST X-RAY Creator : DR. Brody, Flaquito YEUNG Report Date : 06/11/2017 17:05:26 IMPRESSION: Improving interstitial edema/lung disease likely cardiogenic. No focal discrete infiltrates. 06/11/17 18:42 pt bnp 4500 thus given lasix 60mg. pt sitting up. paged medical service for admission. 06/11/17 19:49 d/w Dr. Mitchell pt with CHF exacerbation. will admit. - Lab Interpretations Lab Results: 06/11/17 15:36 06/11/17 15:36 Lab Results 06/11/17 18:57: Urine Color Yellow, Urine Appearance Slight-cloudy, Urine pH 7.5 , Ur Specific Golf 1.015, Urine Protein 100 H, Urine Glucose (UA) Negative, Urine Ketones Negative, Urine Blood Negative, Urine Nitrate Negative, Urine Bilirubin Negative, Urine Urobilinogen 0.2, Ur Leukocyte Esterase Negative, Urine RBC 0 - 2, Urine WBC 0 - 2, Ur Epithelial Cells 1 - 3 06/11/17 15:36: Sodium 133, Potassium 4.5, Chloride 94 L, Carbon Dioxide 27, Anion Gap 17, BUN 27 H, Creatinine 1.7 H, Est GFR ( Amer) 46, Est GFR ( Non-Af Amer) 38, Random Glucose 194 H, Calcium 9.1, Magnesium 1.8, Total Bilirubin 0.7, AST 37, ALT 37, Alkaline Phosphatase 110, Lactate Dehydrogenase 658, Total Creatine Kinase 70, Troponin I < 0.01, NT-Pro-B Natriuret Pep 4580 H , Total Protein 7.3, Albumin 4.2, Globulin 3.0, Albumin/Globulin Ratio 1.4 06/11/17 15:36: PT 12.3, INR 1.13 H, APTT 33.7, D-Dimer, Quantitative 311 H 06/11/17 15:36: WBC 10.2, RBC 6.25 H, Hgb 9.9 L, Hct 37.4 L, MCV 59.8 L, MCH 15.8 L, MCHC 26.5 L, RDW 20.4 H, Plt Count 568 H, Gran % 71.4 H, Lymph % (Auto) 19.2 L, [place] % (Auto) 5.6, Eos % (Auto) 3.2, Baso % (Auto) 0.6, Gran # 7.30 H, Lymph # 2.0, [place] # 0.6, Eos # 0.3, Baso # 0.06 I have reviewed the lab results: Yes - RAD Interpretation Narrative RAD Interpretations (Text): 06/11/17 17:22 chest xray with interstitial edema. wo infiltrate Radiology Orders: 06/11/17 15:52 CHEST TWO VIEWS (PA/LAT) [RAD] Stat Animal Pathology Teacher: Radiologist - EKG Interpretation EKG Interpretation (Text): ECG: SR, flipped t waves avr, v1. flattened avl. 06/11/17 17:23 Interpreted by ED Physician: Yes Type: 12 lead EKG - Medication Orders Current Medication Orders: Discontinued Medications Aspirin (Aspirin Chewable) 324 mg PO STAT STA Stop: 06/11/17 15:57 Last Admin: 06/11/17 16:53 Dose: 324 mg Furosemide (Lasix) 20 mg IVP STAT STA Stop: 06/11/17 17:25 Last Admin: 06/11/17 17:44 Dose: 20 mg MAR Blood Pressure Document 06/11/17 17:44 SRE (Rec: 06/11/17 17:45 SRE [id number]) Blood Pressure Blood Pressure (100/60-150/90) 154/80 IVP Administration Document 06/11/17 17:44 SRE (Rec: 06/11/17 17:45 SRE [id number]) Charges for Administration # of IVP Administrations 1 Furosemide (Lasix) 40 mg IVP STAT STA Stop: 12/08/17 17:45 Last Admin: 06/11/17 17:57 Dose: 40 mg MAR Blood Pressure Document 06/11/17 17:57 SRE (Rec: 06/11/17 17:57 SRE [id number]) Blood Pressure Blood Pressure (100/60-150/90) 153/85 IVP Administration Document 06/11/17 17:57 SRE (Rec: 06/11/17 17:57 SRE [id number]) Charges for Administration # of IVP Administrations 1 Disposition/Present on Arrival - Present on Arrival Any Indicators Present on Arrival: No History of DVT/PE: No History of Uncontrolled Diabetes: No Urinary Catheter: No History of Decub. Ulcer: No History Surgical Site Infection Following: None - Disposition Have Diagnosis and Disposition been Completed?: Yes Diagnosis: CHF (congestive heart failure), CHF exacerbation Disposition Time: 19:50 Patient Plan: Admission, Telemetry Condition: STABLE Discharge Instructions (ExitCare): Heart Failure (ED) Referrals: Lisette Medrano, [Primary Care Provider] - Follow up with primary Forms: [facility] ([place])
[2017-06-11 19:03] LABS: PH,URINE 7.5 (4.7-8.0); URINE BILIRUBIN NEGATIVE (NEGATIVE); URINE BLOOD NEGATIVE (NEGATIVE); URINE GLUCOSE (UA) NEGATIVE (NEGATIVE); URINE KETONE NEGATIVE (NEGATIVE); URINE LEUKOCYTE ESTERASE NEGATIVE Leu/uL (NEGATIVE); URINE PROTEIN 100 mg/dL (<30 mg/dL); URINE UROBILINOGEN 0.2 E.U./dL (<1 E.U./dL)
[2017-06-11 19:15] LABS: URINE APPEARANCE SLIGHT-CLOUDY (CLEAR); URINE COLOR YELLOW (YELLOW)
[2017-06-11 19:44] LABS: URINE RBC 0 - 2 /hpf (0-2); URINE WBC 0 - 2 /hpf (0-6)
[2017-06-11] MEDS ORDERED: Influenza Vaccine 60 mcg/0.5 mL SYR (4YR UP) IM ONE (23:04)
[2017-06-11] MEDS ORDERED: Pneumococcal 23-Valent Vaccine IM ONE (23:04)
--- NOTE | 2017-06-12 10:47 | CARD ---
APPROVED REPORT EKG Measurement Heart [id number] <Conclusion> Sinus rhythm with sinus arrhythmia with 1st degree AV block Nonspecific T wave abnormality Prolonged QT Abnormal ECG
[2017-06-12] MEDS ORDERED: Insulin Reg-MEDIUM-Coverage SC ONE (13:00)
[2017-06-12] MEDS: Insulin Reg-MEDIUM-Coverage SC SCH ×2 (16:54→23:42)
--- NOTE | 2017-06-12 21:54 | HP ---
HISTORY OF PRESENT ILLNESS: The patient is an 86-year-old male admitted to the Emergency Department on 06/11/2017 with shortness of breath and left-sided chest discomfort accompanied by some dizziness. No nausea. No vomiting. No diaphoresis. The patient has a history of coronary disease. He was recently admitted in 01/2017 for similar symptoms. Serial cardiac enzymes and EKG were negative. The patient underwent a stress test after being seen in consultation by Dr. Faulkner and Dr. Jimenez, which showed fixed inferior defect, mild LV dysfunction with diffuse hypokinesis, which was suggestive of cardiomyopathy. The patient was discharged on medical management. 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 PAST SURGICAL HISTORY: There is no past surgical history. ALLERGIES: THE PATIENT HAS AN ALLERGY TO PENICILLIN WITH ANAPHYLAXIS. CURRENT MEDICATIONS: Include Neurontin 100 mg 3 times daily for diabetic neuropathy, Florinef 0.1 mg daily for type 4 renal tubular acidosis, Imdur 30 mg daily, Flomax 0.4 mg daily for BPH, Lasix 40 mg daily and Pepcid 20 mg daily. SOCIAL HISTORY: The patient has no history of tobacco or alcohol use. REVIEW OF SYSTEMS: Essentially negative other than above noted. PHYSICAL EXAMINATION GENERAL: The patient is a well-developed male in no acute distress. VITAL SIGNS: Blood pressure 167/92, pulse 78, temperature 98 and respiratory rate 20. HEENT: Head is normocephalic and atraumatic. Pupils are equal, round and reactive to light. Extraocular movements intact. NECK: Supple. No thyromegaly. No carotid bruit. No adenopathy. LUNGS: Show few bibasilar crackles. HEART: Regular rate and rhythm. ABDOMEN: Soft and nontender. Bowel sounds are normoactive. EXTREMITIES: Without cyanosis, clubbing or edema. NEUROLOGIC: The patient is awake and oriented x3 without focal, sensory or motor deficits. SKIN: Warm and dry. LABORATORY DATA: WBC is 10.2, hemoglobin 9.9, hematocrit 37.4 and platelet count 568. Sodium 133, potassium 4.5, chloride 94, CO2 27, BUN 27, creatinine 1.7 and glucose 194. BNP elevated at 4,580. Troponin is less than 0.01. IMPRESSION: 1. Congestive heart failure. 2. Coronary artery disease. 3. Type 2 diabetes mellitus with diabetic neuropathy and type 4 renal tubular acidosis. 4. Chronic renal insufficiency. 5. Anemia probably secondary to chronic renal insufficiency. PLAN: The patient is admitted from telemetry unit. We will obtain Cardiology consultation with Dr. Faulkner/Tony. Low sodium diet. Physical Therapy and social work at discharge planning. LUIS Soto MD
[2017-06-13] MEDS: Insulin Reg-MEDIUM-Coverage SC SCH ×4 (10:08→22:09)
[2017-06-13 12:07] LABS: TROPONIN I < 0.01 ng/mL
[2017-06-13 12:13] LABS: CALCIUM 8.6 mg/dL (8.4-10.5); CARBON DIOXIDE 26 mmol/L (21-33); CHLORIDE 96 mmol/L (98-107); GFR AFRICAN-AMERICAN 54
[2017-06-13 12:14] LABS: BLOOD UREA NITROGEN 27 mg/dL (7-21); POTASSIUM 4.6 mmol/L (3.6-5.0); SODIUM 133 mmol/L (132-148)
[2017-06-13 12:49] LABS: GLUCOSE,RANDOM 348 mg/dL (70-110)
[2017-06-13] MEDS: Milrinone 20mg/100ml D5W 100 ML IV PRN (13:00)
--- NOTE | 2017-06-13 22:41 | CON ---
DATE: 06/13/2017 CONSULT SERVICE: Cardiology. CONSULTING PHYSICIAN: Swetha Jimenez MD REASON FOR CONSULTATION AND FOLLOWUP: Cardiac evaluation, admitted with shortness of breath and chest discomfort, left-sided. BRIEF CLINICAL HISTORY: This is an 86-year-old male with past medical history significant for diabetes, hypertension, hyperlipidemia, renal insufficiency, type 4 renal tubular acidosis, history of PTCA in the past in 2012, being followed by Dr. Villa and then had a stress test in 06/2013, was negative. The patient was recently admitted in 01/2017 with chest pain and stress test done was negative the patient was discharged home, came in yesterday with complaint of mild shortness of breath and chest discomfort completely resolved now. PAST MEDICAL HISTORY: Significant for polycythemia vera, Muslim, congestive heart failure, type 2 diabetes, PTCA of right coronary artery [place] [address] Daisy guerin, type 4 renal tubular acidosis. Previous cardiac workup as follows: The patient was admitted on 01/28/2017 and the patient's repeat stress test was done on 01/25/2017 that showed abnormal myocardial perfusion study fixed defect. No reversible ischemia, ejection fraction 37%. The patient had also echocardiography done on 11/28/2016 that shows normal LV function, ejection fraction within normal limit, hypokinesis of the apical wall, inferior mild aortic regurgitation, no valvular aortic stenosis, [id number] mitral regurgitation, mild tricuspid regurgitation, RV systolic pressure of 37. The patient has history of coronary artery status post PTCA of right coronary artery in [facility] in 09/[address] Daisy guerin. After that two stress tests were negative, but last stress test showed fixed defect, no reversible ischemia, decreased LV function. Prior to the echo, has preserved LV function, trace IN with ejection fraction of 55%, and 11/2016 echo shows ejection fraction preserved, but stress test shows ejection fraction decreased. Previous echo also shows ejection fraction from 40 to 45%, RV systolic pressure of 45 dated 07/11/2015. SOCIAL HISTORY: Denies any smoking. Denies any history of alcohol abuse. CURRENT MEDICATIONS: The patient is taking Flomax, multivitamin, metformin, isosorbide, gabapentin, Lasix, Florinef, finasteride, Proscar, and famotidine. REVIEW OF SYSTEMS: As per HPI. PHYSICAL EXAMINATION: VITAL SIGNS: Temperature afebrile, heart rate 83, blood pressure 157/80. HEENT: PERRLA. Extraocular muscles intact. NECK: Supple. No carotid bruit or thyromegaly. CHEST: Clear to auscultation. HEART: S1 and S2, regular. ABDOMEN: Soft. EXTREMITIES: Clubbing and cyanosis negative. LABORATORY DATA: Blood workup as follows: WBC is 10.8, hemoglobin 9.9, hematocrit 37.2, platelet count 567. Chemistry shows sodium of 130, potassium 4.0, chloride 94, carbon dioxide 27, anion gap 17, BUN 27, creatinine 1.7. BNP 4580. Troponin remains negative. IMPRESSION: Acute decompensated congestive heart failure; cardiomyopathy; history of coronary artery disease, stent in the right coronary artery; diabetes, creatinine clearance 37 mL an hour. No evidence of acute myocardial infarction. RECOMMENDATION: We will add on troponin . I will add on lipid profile tomorrow. We will get hemoglobin A1c and we will get the TSH level now and also get SMA-7 to see the renal function. If the renal function remain stable, we will discuss with the patient for possible cardiac catheterization tomorrow, although the patient has little bit increased risk for renal failure because of the renal tubular acidosis and creatinine clearance of 30 mL. We will start low dose of Primacor to treat congestive heart failure. If the renal function remained stable and the patient again will proceed for cardiac catheterization. We will discuss with you. So far no evidence of acute IN, but the patient had history of coronary artery disease and history of CHF in the recurrent admission with chest pain, so we will proceed for cardiac catheterization. If the renal function remained stable and the patient agrees, we will proceed. Thank you Dr. Mitchell, for providing the opportunity in taking care of the patient. Swetha Jimenez MD
--- NOTE | 2017-06-14 04:41 | DS ---
HOSPITAL COURSE: The patient is an 86-year-old male, admitted through the emergency department on 06/11/2017 with chest pain and shortness of breath. The patient's EKG and cardiac enzymes were negative for an acute coronary syndrome. The patient was seen in consultation by Dr. Faulkner/Dr. Jimenez for Cardiology and no intervention is planned. The patient denies chest pain or shortness of breath at the present time, feels better, and is medically stable for discharge to home. PHYSICAL EXAMINATION: VITAL SIGNS: Blood pressure 157/80, temperature 98, pulse 83, and respiratory rate 18. LUNGS: Clear. HEART: Regular rate and rhythm. ABDOMEN: Soft and nontender. Bowel sounds are normoactive. EXTREMITIES: Without cyanosis, clubbing, or edema. NEUROLOGIC: The patient is awake and oriented x3 without focal sensory or motor deficits. SKIN: Warm and dry. IMPRESSION: 1. Coronary artery disease/angina. 2. Congestive heart failure. 3. Type 2 diabetes mellitus with diabetic neuropathy and type 4 renal tubular acidosis. 4. Chronic renal insufficiency. 5. Anemia, probably secondary to chronic renal insufficiency. MEDICATIONS: The patient will be discharged home today on the following medications: Neurontin 100 mg 3 times daily; Florinef 0.1 mg daily; Imdur 30 mg daily; Flomax 0.4 mg daily; Lasix 40 mg daily; Pepcid 20 mg daily; metformin 1000 mg twice daily; and glimepiride 4 mg daily. DISCHARGE DIET: He will be maintained on a consistent carbohydrate diet. ACTIVITY: Ad libitum. FOLLOWUP: He will be followed as an outpatient in the office in the next 1 to 2 weeks. LUIS Soto MD
[2017-06-14 06:59] LABS: BASO # 0.04 K/mm3 (0.0-2.0); BASO % 0.4 % (0.0-3.0); EOS # 0.5 (0.0-0.7); GRAN # 7.14 (1.4-6.5); GRAN % 76.8 % (50.0-68.0); HEMATOCRIT 36.2 % (42.0-52.0); LYMPH # 1.2 (1.2-3.4); MEAN CELL VOLUME 59.4 fl (80.0-105.0); MEAN CORPUSCULAR HEMOGLOBIN 15.6 pg (25.0-35.0); MEAN CORPUSCULAR HGB CONC 26.2 g/dl (31.0-37.0); MONO # 0.5 (0.1-0.6); MONO % 4.8 % (1.0-6.0); PLATELET COUNT 567 10^3/uL (120.0-450.0); RED CELL DISTRIBUTION WIDTH 20.3 % (11.5-14.5); WHITE BLOOD COUNT 9.3 10^3/ul (4.5-11.0)
[2017-06-14] MEDS ORDERED: Sodium Chloride 0.9% 1,000 ML IV SCH (07:00)
[2017-06-14 07:30] LABS: ALB/GLOB RATIO 1.4 (1.1-1.8); BILIRUBIN,TOTAL 0.5 mg/dL (0.2-1.3); CALCIUM 8.7 mg/dL (8.4-10.5); MAGNESIUM 1.5 mg/dL (1.7-2.2); PHOSPHOROUS 3.7 mg/dL (2.5-4.5); POTASSIUM 3.9 mmol/L (3.6-5.0); TOTAL PROTEIN 5.8 g/dL (5.8-8.3)
--- NOTE | 2017-06-14 09:17 | CON ---
ADDENDUM DATE: 06/13/2017 REASON FOR ADDENDUM: Repeat SMA-7 was then came out to 1.5. Since the patient had this recurrent, admitted with chest pain and shortness of breath, though stress was fixed defect, but decreased LV function above. The patient discussed at length with the and scheduled for cardiac catheterization tomorrow. Risks, benefits, and alternatives explained to the patient and the patient had history of CAD and status post stent in [address] Daisy guerin. The patient understand the procedure and agreed. We will keep n.p.o. after 12:00 midnight for cardiac catheterization tomorrow. We will give 300 mg of Plavix a.m. of tomorrow. We will also start low dose of Primacor to improve the renal perfusion and for more diuresis and also prevent kidney function deterioration from diuretics as well as from the cardiac cath tomorrow. We will follow with you. Thank you Dr. Mitchell for providing us the opportunity in taking care of patient, Monico Delgado. Swetha Jimenez MD
[2017-06-14] MEDS: Insulin Reg-MEDIUM-Coverage SC SCH (10:12)
[2017-06-14] MEDS: Milrinone 20mg/100ml D5W 100 ML IV PRN (10:56)
[2017-06-14] MEDS ORDERED: Iohexol 350mgl/ml 50 ML ONE (11:48)
[2017-06-14] MEDS ORDERED: Iodixanol 320 MG/ML 200 ML BOTTLE IV ONE (11:48)
[2017-06-14] MEDS ORDERED: Lidocaine 2% Inj (20ml) ONE (11:48)
[2017-06-14] MEDS ORDERED: Midazolam 2 MG/2 ML VIAL ONE (12:13)
[2017-06-14] MEDS ORDERED: Eptifibatide 20 mg/10mL Inj IVP ONE (12:45)
[2017-06-14] MEDS ORDERED: Nitroglycerin 50mg in D5W 50 MG/250 ML BOTTLE IV ONE (12:59)
--- NOTE | 2017-06-14 16:30 | CP.PCM.PN ---
Subjective - Date & Time of Evaluation Date of Evaluation: 06/14/17 Time of Evaluation: 15:20 - Subjective Subjective: resting comfortable s/p cath with stent placement, denies chest pain, no shortness of breath Objective - Vital Signs/Intake and Output Vital Signs (last 24 hours): Temp Pulse Resp BP Pulse Ox 97.8 F 82 18 158/80 H 98 06/14/17 06:00 06/14/17 14:00 06/14/17 06:00 06/14/17 06:00 06/14/17 06:00 Intake and Output: 06/14/17 06/14/17 06:59 18:59 Intake Total 162 500 Output Total 250 Balance -88 500 - Medications Medications: Current Medications Aspirin (Aspirin Chewable) 81 mg PO DAILY [facility] Last Admin: 06/14/17 09:38 Dose: 81 mg Atorvastatin Calcium (Lipitor) 10 mg PO DIN YVETTE Clopidogrel Bisulfate (Plavix) 75 mg PO DAILY [facility] Last Admin: 06/14/17 09:38 Dose: 75 mg Famotidine (Pepcid) 40 mg PO HS [facility] Last Admin: 06/13/17 22:12 Dose: 40 mg Finasteride (Proscar) 5 mg PO DAILY [facility] Last Admin: 06/14/17 10:13 Dose: Not Given Fludrocortisone Acetate (Florinef) 0.1 mg PO QAM [facility] Last Admin: 06/14/17 10:12 Dose: Not Given Furosemide (Lasix) 40 mg IV ONCE ONE Stop: 06/14/17 18:01 Furosemide (Lasix) 40 mg PO DAILY [facility] Gabapentin (Neurontin) 100 mg PO TID [facility] PRN Reason: Protocol Last Admin: 06/14/17 10:13 Dose: Not Given Milrinone Lactate/Dextrose (Primacor 20mg/100ml D5w) 100 mls @ 3.511 mls/hr IV .Q24H PRN; Protocol; 0.2 MCG/KG/MIN PRN Reason: TITRATE PER MD ORDER Stop: 06/15/17 08:00 Last Admin: 06/14/17 10:56 Dose: 0.2 mcg/kg/min, 3.511 mls/hr Sodium Chloride (Sodium Chloride 0.9%) 1,000 mls @ 75 mls/hr IV .[id number] [facility] Stop: 06/15/17 07:00 Last Admin: 06/14/17 06:33 Dose: 75 mls/hr Insulin Human Regular (Humulin R Low) 0 units SC ACHS [facility] PRN Reason: Protocol Isosorbide Mononitrate (Imdur Er) 30 mg PO DAILY [facility] Last Admin: 06/14/17 10:13 Dose: Not Given Metformin HCl (Glucophage) 1,000 mg PO BID [facility] Tamsulosin HCl (Flomax) 0.4 mg PO DAILY [facility] Last Admin: 06/14/17 10:12 Dose: Not Given - Labs Labs: 06/14/17 06:20 06/14/17 06:20 PT 12.3 SECONDS (9.4-12.5) 06/11/17 15:36 INR 1.13 (0.93-1.08) H 06/11/17 15:36 APTT 33.7 Seconds (25.1-36.5) 06/11/17 15:36 - Respiratory Exam Respiratory Exam: Clear to Ausculation Bilateral, NORMAL BREATHING PATTERN - Cardiovascular Exam Cardiovascular Exam: REGULAR RHYTHM - GI/Abdominal Exam GI & Abdominal Exam: Soft, Normal Bowel Sounds - Extremities Exam Extremities Exam: Normal Inspection - Neurological Exam Neurological Exam: Alert, Awake - Skin Skin Exam: Dry, Warm Assessment and Plan (1) CHF (congestive heart failure) Status: Chronic (2) Chest pain Status: Acute (3) Coronary artery disease Status: Chronic (4) Renal tubular acidosis, type IV Status: Chronic (5) Type II diabetes mellitus Status: Chronic - Assessment and Plan (Free Text) Plan: continue post-cath monitoring, for discharge in am
[2017-06-14] MEDS: Insulin Reg-LOW-Coverage SC SCH ×2 (17:46→21:56)
[2017-06-14 17:47] LABS: BASO # 0.05 K/mm3 (0.0-2.0); BASO % 0.6 % (0.0-3.0); EOS # 0.3 (0.0-0.7); EOS % 3.7 % (1.5-5.0); GRAN # 6.96 (1.4-6.5); HEMATOCRIT 34.4 % (42.0-52.0); LYMPH # 1.2 (1.2-3.4); LYMPH % 13.5 % (22.0-35.0); MEAN CELL VOLUME 59.9 fl (80.0-105.0); MEAN CORPUSCULAR HEMOGLOBIN 15.7 pg (25.0-35.0); MEAN CORPUSCULAR HGB CONC 26.2 g/dl (31.0-37.0); MONO # 0.5 (0.1-0.6); MONO % 5.2 % (1.0-6.0); PLATELET COUNT 596 10^3/uL (120.0-450.0); RED CELL DISTRIBUTION WIDTH 20.3 % (11.5-14.5)
[2017-06-14 18:02] LABS: CALCIUM 8.4 mg/dL (8.4-10.5); POTASSIUM 4.1 mmol/L (3.6-5.0)
--- NOTE | 2017-06-14 18:19 | CARD ---
APPROVED REPORT Procedure(s) performed: Left Heart Catheterization PTCA with Stenting of Distal Circumflex with DAHLIA HISTORY The patient is a 86 year-old male with a history of : most recent EF: 37%. (EF Method: RADIONUCLIDE), diabetes mellitus with oral treatment , previous diagnostic cath, tobacco history() : The patient is a former smoker , previous PCI (The PCI date was 07/05/2012), hypertension , Multiple admission with Chest pain, CKD, admitted with unstable angina. INDICATION The indication(s) include : unstable angina . CASE TECHNIQUE The patient was brought urgently to the Cardiac Catheterization Laboratory in a fasting state and was prepped and draped in a sterile manner. The right femoral groin was infiltrated with 2% Lidocaine subcutaneous anesthesia. A 6 Fr x 11 cm Nena sheath was inserted into the right femoral artery without difficulty. Coronary angiography was performed using coronary diagnostic catheters. The left coronary system was accessed and visualized with a Diagnostic ,5 Fr JL 3.5 catheter. The right coronary system was accessed and visualized with a Diagnostic ,5 Fr JR 3.5 catheter. The left ventricle was accessed and visualized with a 5 Fr Pigtail 145 (Angled) catheter. Left ventriculogram was performed in EDDY projection. Closure device was deployed with a 6 Fr / 7 Fr MynxGrip without any complications. The patient tolerated the procedure well and there were no complications associated with the procedure. Vessel Analysis The patient's coronary anatomy is right dominant. The left main coronary artery is a large size vessel with diffuse calcification noted throughout this vessel and without significant stenosis. There is a 30-40% stenosis in the mid segment. The left main bifurcates to the left anterior descending and circumflex. The left anterior descending artery is a medium size vessel with diffuse calcification noted throughout this vessel and without significant stenosis. There is a 50% stenosis in the mid to distal segment. multiple stenoses The first diagonal branch is a medium size vessel with diffuse calcification noted throughout this vessel and without significant stenosis. The circumflex artery is a medium size vessel with diffuse calcification noted throughout this vessel and with significant stenosis. There is a 90% stenosis in the distal segment. The first obtuse marginal branch is a large size vessel with diffuse calcification noted throughout this vessel and without significant stenosis. The right coronary artery is a large size vessel with diffuse calcification noted throughout this vessel and without significant stenosis. patent stent in mid segment There is a 30% stenosis in the mid segment. The right posterior descending artery is a large size vessel with diffuse calcification noted throughout this vessel and without significant stenosis. The right posterolateral branch is a large size vessel with diffuse calcification noted throughout this vessel and without significant stenosis. Left Ventricle The left ventricle is borderline in size with borderline decreased contractility. Ischemic cardiomyopathy. The left ventricular ejection fraction is estimated to be 50%. The left ventricular end diastolic pressure is 18 mmHg. There was no gradient across the aortic valve upon pullback. PCI Technique Lesion Percutaneous coronary intervention was performed on the distal circumflex artery segment. The lesion stenosis prior to intervention was 90% with MATT 2 flow. A 6 Fr JL 3.5 Guide Catheter was used to engage the ostium. A LibriLoop 182 Interventional Guidewire was used to cross the lesion. BALLOON DILATION A Balloon catheter 2.0 x 12 mm Mini Trek RX was inserted and inflated up to 10.00atm for 14seconds. STENT DEPLOYMENT A drug-eluting stent 2.25 x 14 mm Resolute DAHLIA was inserted and inflated up to 5.00atm for 16seconds. POST STENT DEPLOYMENT BALLOON DILATION A Balloon catheter 2.5 x 8 mm Trek RX NC was inserted and inflated up to 15.00atm for 15seconds. Final angiography reveals 0 % stenosis with MATT 3 flow. Conclusion Single vessel Critical Disease ,Distal Circumflex 90% stenosis Moderate Disease in Left main, LAD, and RCA Patent stent in Mid RCA Low normal EF-505, EDP-18 Successful pTCA with DAHLIA of Distal circumflex. Recommendations Daily ASA with Plavix for at least one year Aggressive Medical TherapyCardiac Risk Reduction Program Monitor renal Fx closely Continue Primacor for next 24 hours with hydration. Pt. is not on HAYDE B/c of Mild to moderate Renal Insufficiency. CC; DRs. Mitchell/ Kaushik
--- NOTE | 2017-06-14 18:49 | PN ---
DATE: 06/14/2017 REASON FOR CONSULTATION: Unstable angina, recurrent chest pain, history of coronary artery disease, underwent cardiac catheterization and angioplasty to circumflex. SUBJECTIVE: The patient denies any chest pain, shortness of breath or any palpitations. OBJECTIVE: GENERAL: Not in apparent distress. VITAL SIGNS: As follows; temperature afebrile, heart rate 90, blood pressure 158/80. HEENT: PERRLA. Extraocular muscles intact. NECK: Supple. No carotid bruit or thyromegaly. CHEST: Clear to auscultation. HEART: S1 and S2 regular. ABDOMEN: Soft. EXTREMITIES: Clubbing and cyanosis negative. LABORATORY DATA: Blood workup today as follows: WBC 9.3, hemoglobin 9.5, hematocrit 36.2, platelet count 567. Sodium 135, potassium 3.9, chloride 99, carbon dioxide 25, anion gap of 15, BUN 40, creatinine 1.5. Troponin is 0.0, negative. IMPRESSION: Unstable angina, recurrent chest pain, fixed defect in the stress test, and history of coronary artery disease. In view of above, the patient underwent cardiac catheterization that revealed mild distal left main disease; left anterior descending artery with 40% to 50% stenosis, multiple in the mid area; circumflex, distal 90% stenosis; right coronary artery is dominant, large caliber vessel, patent stent 30% to 40% stenosis in the mid segment; ejection fraction 45% to 50%. EDP was in the range of 18. In view of above, percutaneous transluminal coronary angioplasty with stent was done in the circumflex with 2.25 mm Resolute and 14 mm in length deployed through the right femoral approach, a total of 140 mL of contrast used. PLAN: Continue IV fluid till tomorrow morning. Continue Primacor till tomorrow morning with Lasix at 5 p.m. and start Lasix p.o. from tomorrow. Continue aspirin, continue Plavix, continue isosorbide nitrate, continue clopidogrel, and we will give 10 mg of atorvastatin. We will repeat the blood workup tonight and then tomorrow. Thank you Dr. Mitchell for providing us the opportunity in taking care of the patient, Sandy. We will follow with you. Swetha Jimenez MD cc: Dr. Mitchell
--- NOTE | 2017-06-14 23:48 | CARD ---
APPROVED REPORT EKG Measurement Heart [id number] <Conclusion> Sinus rhythm with 1st degree AV block Nonspecific T wave abnormality Prolonged QT Abnormal ECG
[2017-06-15 00:18] VITALS: O2SAT 96
[2017-06-15 06:48] LABS: BASO # 0.06 K/mm3 (0.0-2.0); BASO % 0.7 % (0.0-3.0); EOS # 0.5 (0.0-0.7); GRAN # 6.34 (1.4-6.5); GRAN % 71.2 % (50.0-68.0); HEMATOCRIT 36.8 % (42.0-52.0); LYMPH # 1.4 (1.2-3.4); LYMPH % 16.1 % (22.0-35.0); MEAN CELL VOLUME 59.8 fl (80.0-105.0); MEAN CORPUSCULAR HEMOGLOBIN 15.4 pg (25.0-35.0); MEAN CORPUSCULAR HGB CONC 25.8 g/dl (31.0-37.0); MONO # 0.5 (0.1-0.6); PLATELET COUNT 631 10^3/uL (120.0-450.0); RED CELL DISTRIBUTION WIDTH 20.3 % (11.5-14.5); WHITE BLOOD COUNT 8.9 10^3/ul (4.5-11.0)
[2017-06-15 07:06] LABS: ALB/GLOB RATIO 1.4 (1.1-1.8); BILIRUBIN,TOTAL 0.5 mg/dL (0.2-1.3); CALCIUM 8.6 mg/dL (8.4-10.5); MAGNESIUM 1.5 mg/dL (1.7-2.2); PHOSPHOROUS 3.4 mg/dL (2.5-4.5); POTASSIUM 3.7 mmol/L (3.6-5.0); TOTAL PROTEIN 5.9 g/dL (5.8-8.3)
[2017-06-15] MEDS: Insulin Reg-LOW-Coverage SC SCH ×2 (08:03→12:09)
[2017-06-15] MEDS ORDERED: Magnesium Oxide 400 mg Tab UD PO SCH (10:00)
[2017-06-15 13:04] VITALS: BP 136/72; PULSE 71; RESP 20; TEMP 97.8
--- NOTE | 2017-06-15 13:19 | PN ---
DATE: 06/15/2017 REASON FOR CONSULTATION AND FOLLOWUP: Unstable angina, recurrent chest pain, history of coronary artery disease, underwent cardiac catheterization, angioplasty of the circumflex. SUBJECTIVE: Denies any chest pain, shortness of breath, or any palpitations. PHYSICAL EXAMINATION GENERAL: Not in apparent distress. VITAL SIGNS: Temperature afebrile, heart rate 73, blood pressure 125/54. HEENT: PERRLA. Extraocular muscles intact. NECK: Supple. No carotid bruits or thyromegaly. CHEST: Clear to auscultation. HEART: S1 and S2 regular. ABDOMEN: Soft. EXTREMITIES: Clubbing and cyanosis negative. LABORATORY DATA: Blood workup as follows; WBC 8.9, hemoglobin 9.5, hematocrit 36.8, platelet count 631. Chemistry shows sodium 139, potassium 3.7, chloride 103, carbon dioxide 27, anion gap of 12,BUN 31, and creatinine 1.4. Total protein 5.9, albumin 3.4, albumin globulin ratio 1.4. IMPRESSION: Unstable angina, chest pain, status post cardiac catheterization and stenting of the distal circumflex. Patent stent noted in right coronary artery done in 2012. Chronic kidney disease stage II, improved significantly. Postprocedure BUN and creatinine today is 31 BUN and creatinine 1.4. RECOMMENDATIONS: The patient was not on HAYDE inhibitor because of renal insufficiency. Now since renal function improved, we will start 2.5 mg of lisinopril, monitor renal function closely, continue aspirin, continue Plavix, continue Coreg 6.25 mg daily, continue atorvastatin, continue Plavix, and continue lisinopril, Possible discharge home today, we will discontinue telemetry. When the patient is cleared from cardiac point of view to be discharged, we will resume back metformin from today. Since the patient has creatinine clearance 48, we will cut down the Glucophage to 500 mg b.i.d. Possible discharge home and monitor renal function closely as lisinopril 2.5 mg is started. We will discuss with Dr. Mitchell. Follow up upon discharge in the office. Thank you Dr. Mitchell for providing us the opportunity in taking care of the patient, Monico Delgado. Swetha Jimenez MD
--- NOTE | 2017-06-16 14:23 | PQF CHF ---
This form is a permanent part of the medical record Dr. Jimenez, You indicated in your consult "acute decompensated CHF" . Please specify the type of CHF below. Thank you. Clarification of your documentation is requested to better reflect the severity of illness and intensity of treatment of your patient. Indicators present s[] Diagnosis of CHF and/or history of CHF [s] BNP > 200 [] Imaging Finding of Pulmonary Edema /Pleural Effusions [] Fluid/Volume Overload [] Pitting edema [] Ejection Fraction < 40% (Indicative of Systolic Heart Failure) [] Ejection Fraction > 40% (Indicative of Diastolic Heart Failure) [] Dyspnea / Orthopenea / Paroxysmal Nocturnal Dyspnea [] Other: Location in the medical record that reflects the above clinical findings: [] Treatment Provided: [] PHYSICIAN'S RESPONSE Based on your medical judgment of the clinical indicators outlined above, are you treating this patient for a known or suspected: [] Acute CHF [] Systolic [] Diastolic [] Combined [] Chronic CHF [] Systolic [] Diastolic [] Combined [x] Acute on Chronic CHF [x]Systolic [] Diastolic [] Combined [] CHF due hypertension [] Acute systolic []Chronic systolic [] Acute/ chronic systolic [] Other, please indicate: [] [] If Unable to Determine, please check the box, sign and date. Present On Admission (POA) Indicator: [] Present at the time of admission [] Not present at the time of admission [] Clinically Undetermined In responding to this query, please exercise your independent professional judgment. The fact that a question is asked does not imply that any particular answer is desired or expected. Thank you for your clarification on this documentation. If you have any questions please call:[ ] * Thank you, [ ]rupa CELISsenior oracle applications developer NEREIDA
== END 2017-06-15 15:00 | disposition home or self-care (01) | DRG 291 ==
LOC: ED 15:25 → ERH 20:35 → 3RSO 21:29 → 2RSO 06-14 13:39
PROVIDERS: ADMIT Internal Medicine; ATTEND Internal Medicine
DX: I13.0 Hypertensive heart and chronic kidney disease with heart failure and stage 1 through stage 4 chronic kidney disease, or unspecified chronic kidney disease (principal); I50.23 Acute on chronic systolic (congestive) heart failure; N18.2 Chronic kidney disease, stage 2 (mild); E11.22 Type 2 diabetes mellitus with diabetic chronic kidney disease; E11.40 Type 2 diabetes mellitus with diabetic neuropathy, unspecified; I25.110 Atherosclerotic heart disease of native coronary artery with unstable angina pectoris; N25.89 Other disorders resulting from impaired renal tubular function; D63.1 Anemia in chronic kidney disease; E78.5 Hyperlipidemia, unspecified; D45 Polycythemia vera; I08.3 Combined rheumatic disorders of mitral, aortic and tricuspid valves; I25.5 Ischemic cardiomyopathy; Z79.84 Long term (current) use of oral hypoglycemic drugs; Z88.0 Allergy status to penicillin; Z95.5 Presence of coronary angioplasty implant and graft

== ENCOUNTER 2018-02-04 08:15 | Day surgery (SDC) | payer MEDICARE, OTHER ==
[2018-01-27 14:40] VITALS: BMI 26.5
[2018-02-04] MEDS ORDERED: Sodium Chloride 0.9% 1,000 ML IV SCH (09:45)
[2018-02-04] MEDS ORDERED: Propofol 10 mg/ml Inj (20 ML) ONE (10:22)
[2018-02-04] MEDS ORDERED: Etomidate 20 mg/10ml Inj IV ONE (10:22)
--- NOTE | 2018-02-04 14:49 | CARD ---
APPROVED REPORT Date of service: 02/04/2018 EKG Measurement Heart [id number] <Conclusion> Sinus rhythm with 2nd degree AV block (Mobitz I) ST & T wave abnormality, consider lateral ischemia Abnormal ECG
[2018-02-04 16:22] VITALS: BP 150/78; PULSE 66; RESP 18; TEMP 97.6; O2SAT 96
[2018-02-04 18:10] LABS: BASO # 0.02 K/mm3 (0.0-2.0); BASO % 0.2 % (0.0-3.0); EOS # 0.2 (0.0-0.7); EOS % 2.8 % (1.5-5.0); GRAN # 6.47 (1.4-6.5); GRAN % 77.9 % (50.0-68.0); HEMOGLOBIN 14.2 g/dL (14.0-18.0); LYMPH # 1.1 (1.2-3.4); LYMPH % 12.8 % (22.0-35.0); MEAN CELL VOLUME 63.2 fl (80.0-105.0); MEAN CORPUSCULAR HEMOGLOBIN 18.2 pg (25.0-35.0); MEAN CORPUSCULAR HGB CONC 28.7 g/dl (31.0-37.0); MONO # 0.5 (0.1-0.6); MONO % 6.3 % (1.0-6.0); PLATELET COUNT 457 10^3/uL (120.0-450.0); RBC 7.82 10^6/uL (3.5-6.1); RED CELL DISTRIBUTION WIDTH 20.9 % (11.5-14.5); WHITE BLOOD COUNT 8.3 10^3/ul (4.5-11.0)
[2018-02-04 18:16] LABS: BLOOD UREA NITROGEN 23 mg/dL (7-21); CALCIUM 8.6 mg/dL (8.4-10.5); GFR AFRICAN-AMERICAN > 60; GFR NON-AFRICAN AMERICAN 57
--- NOTE | 2018-02-05 01:52 | CON ---
Copied To: Swetha Faulkner MD Attending MD: Swetha Faulkner MD DATE: 02/04/2018 LOCATION: The patient is in recovery room. REASON FOR CONSULTATION: Cardiac arrhythmia, Wenckebach rhythm, coronary artery disease, hypertension, diabetes and hyperlipidemia, renal dysfunction, history of PTCA and stent insertion in 2012 and then 06/14/2017, the patient has stent in the circumflex artery. HISTORY OF PRESENT ILLNESS: The patient is an 87-year-old male admitted with loss of weight and had colonoscopy. Prior to start of the colonoscopy, the patient was in sinus rhythm with prolonged FL and during the procedure, he got Wenckebach rhythm. The patient at home had been taking Coreg 6.25 p.o. daily. The patient denies any chest pain, shortness of breath, palpitation. No history of dizziness or syncope. The patient now postop conscious, alert without any cardiac symptoms, lying flat in bed. PAST MEDICAL HISTORY: Significant for polycythemia vera, Zoroastrianism, congestive heart failure, type 2 diabetes mellitus, PTCA of right coronary artery in [address] Villa's group and then the patient had stent put in circumflex on 06/14/[address] Jimenez, type 4 renal tubular acidosis. PREVIOUS CARDIAC WORKUP: The patient had stress test on 01/25/2017 that showed abnormal myocardial perfusion study with fixed defect, no reversible ischemia, but ejection fraction of 37%. Echo was done on 11/28/2016 that showed normal LV function, ejection fraction within normal limit, hypokinesis of the apical wall and inferior wall, mild aortic regurgitation, [id number] mitral regurgitation, mild tricuspid regurgitation, RV systolic pressure of 37 mmHg. The patient had stent put in the circumflex on 06/14/2017 and it showed patent previous stent in the RCA, moderate disease in left main, LAD and RCA. LV ejection fraction of 50%. LVEDP was 18. PERSONAL HISTORY: Denies smoking, denies drinking. HOME MEDICATIONS: Included Coreg 6.25 daily, Proscar 5 mg daily, Flomax 0.4 mg p.o. daily, Lipitor 10 mg daily, Plavix 75 daily, Amaryl 4 mg daily, furosemide 80 daily, metformin 1000 mg p.o. daily. REVIEW OF SYSTEMS: All the systems reviewed, positive mentioned in the history, others are negative. PHYSICAL EXAMINATION VITAL SIGNS: Blood pressure 185/89, respiration 14, pulse 63, temperature 97.9. HEENT: Head is normocephalic. Eyes; pupils normal, conjunctivae slightly pale. NECK: JVP is low. Carotid equal. THORAX: AP diameter normal. LUNGS: Clear. CARDIOVASCULAR: S1 and S2. ABDOMEN: Soft. No tenderness. No organomegaly. Bowel sounds normal. EXTREMITIES: No clubbing. No cyanosis. LABORATORY DATA: EKG showed Wenckebach rhythm rate around 58 per minutes, T-inversion seen and there is no ST-T changes as compared to old EKG in 06/2017 except the patient now is in Wenckebach rhythm and asymptomatic. No other lab work was done and no chest x-ray was done. DIAGNOSES: Wenckebach rhythm, asymptomatic, the patient is on Coreg 6.25 daily; coronary artery disease, history of stent insertion in the past, history of left ventricular dysfunction in the past, history of congestive heart failure in the past, history of renal dysfunction, hyperlipidemia, diabetes mellitus type 2, hypertension. PLAN: Give the patient on Norvasc 10 mg p.o. stat and we will send the blood work for CBC, SMA-7, magnesium, phosphorus and TSH. The patient is totally asymptomatic and heart rate at this moment when I am examining him is 62 per minute and the patient was on Coreg 6.25 daily. We will discontinue the Coreg and we will see the patient in two days in my office and I will do Holter monitor and examine him. Explained to the daughter of the patient about the change of medications. The patient will continue other medications which is Lipitor 10 mg daily, Plavix 75 daily, Lasix 80 daily, potassium 10 daily, Ecotrin 81 mg daily, Flomax 0.4 daily, Proscar 5 mg daily which is finasteride, tamsulosin, Lipitor, atorvastatin daily, Plavix, clopidogrel. Also, the patient will be on glimepiride 4 mg daily, metformin 1000 mg daily and we will put a Holter monitor also on Wednesday to evaluate his arrhythmia and told the patient and family if any symptom, please bring him back to emergency room. We will follow. Swetha Faulkner MD
== END 2018-02-04 17:15 | disposition home or self-care (01) ==
LOC: ENDO 08:15
PROVIDERS: ATTEND Internal Medicine Gastroenterology
DX: R63.4 Abnormal weight loss (principal); K44.9 Diaphragmatic hernia without obstruction or gangrene; Q43.8 Other specified congenital malformations of intestine; K64.8 Other hemorrhoids; Z88.0 Allergy status to penicillin; I13.2 Hypertensive heart and chronic kidney disease with heart failure and with stage 5 chronic kidney disease, or end stage renal disease; E11.22 Type 2 diabetes mellitus with diabetic chronic kidney disease; N18.6 End stage renal disease; I50.9 Heart failure, unspecified; I25.10 Atherosclerotic heart disease of native coronary artery without angina pectoris; E78.5 Hyperlipidemia, unspecified; I44.1 Atrioventricular block, second degree; I49.9 Cardiac arrhythmia, unspecified; D45 Polycythemia vera; Z95.5 Presence of coronary angioplasty implant and graft; Z79.84 Long term (current) use of oral hypoglycemic drugs; Z79.02 Long term (current) use of antithrombotics/antiplatelets
CPT/HCPCS: 36415; 43235; 45378; 80048; 83735; 84100; 84443; 85025; 93005; J2001; J2704; J7030

== ENCOUNTER 2018-11-01 16:39 | Inpatient (IN) | payer MEDICARE, OTHER ==
--- NOTE | 2018-11-01 17:02 | ED PDOC ---
Arrival/HPI - General Time Seen by Provider: 11/01/18 16:53 Historian: Patient - History of Present Illness Narrative History of Present Illness (Text): 11/01/18 17:01 87 year old male, whose past medical history includes diabetes and CAD s/p stents, presents to the emergency department accompanied by family complaining of bilateral leg swelling and pain associated with shortness of breath for the past few days. Patient arrived yesterday after traveling for 1.5 months. Patient reports trouble ambulating. Patient denies any fever, chills, chest pain, nausea, vomiting, diarrhea, urinary symptoms, back pain, neck pain, headache, dizziness, or any other complaints. PMD: Dr. Mitchell Catalogue Illustrator: Dr. Jimenez Time/Duration: Other (few days) Symptom Onset: Gradual Symptom Course: Unchanged Activities at Onset: Light Context: Other (Travel) Past Medical History - Provider Review Nursing Documentation Reviewed: Yes - Travel History Have you recently traveled outside [place] w/in the past 3 mons?: Yes - Infectious Disease Hx of Infectious Diseases: None - Cardiac Hx Peripheral Vascular Disease: Yes - Pulmonary Hx Respiratory Disorders: Yes (2ND HAND SMOKE) - Neurological Hx Paralysis: No - HEENT Hx HEENT Disorder: Yes Hx Cataracts: Yes (bilateral 1 1/2 yrs ago) Other/Comment: wears eyeglasses - Endocrine/Metabolic Hx Endocrine Disorders: Yes Hx Diabetes Mellitus Type 2: Yes - Hematological/Oncological Hx Blood Transfusions: No (PT IS JEHOVAHS WITNESS/NO BLOOD TRANSFUSIONS) Hx Blood Transfusion Reaction: No - Integumentary Hx Dermatological Disorder: Yes Other/Comment: redness to lle,BILATERAL LE EDEMA PITTING +2 - Musculoskeletal/Rheumatological Hx Musculoskeletal Disorders: Yes - Gastrointestinal Hx Gastrointestinal Disorders: Yes Hx Gastroesophageal Reflux: Yes - Genitourinary/Gynecological Hx Genitourinary Disorders: Yes Hx Prostate Problems: Yes (enlarged takees flomax) - Psychiatric Hx Emotional Abuse: No Hx Physical Abuse: No Hx Substance Use: No - Surgical History Hx Cardiac Catheterization: Yes (stent x1) - Anesthesia Hx Anesthesia Reactions: No Hx Malignant Hyperthermia: No - Suicidal Assessment Feels Threatened In Home Enviroment: No Family/Social History - Physician Review Nursing Documentation Reviewed: Yes Family/Social History: No Known Family HX Smoking Status: Former Smoker Hx Alcohol Use: Yes (drinks occasionnally) Hx Substance Use: No Hx Substance Use Treatment: No Allergies/Home Meds Allergies/Adverse Reactions: Allergies Penicillins Allergy (Verified 02/04/18 09:31) RASH Home Medications: Home Meds Medication Instructions Recorded Confirmed Glimepiride [amaRYL] 4 mg PO DAILY 01/27/18 11/01/18 Tamsulosin [Flomax] 0.4 mg PO DAILY 01/27/18 11/01/18 Clopidogrel [Plavix] 75 mg PO DAILY 11/01/18 11/01/18 Fludrocortisone [Florinef Acetate] 0.1 mg PO DAILY 11/01/18 11/01/18 Furosemide [Lasix] 20 mg PO DAILY 11/01/18 11/01/18 Meloxicam [Mobic] 15 mg PO DAILY 11/01/18 11/01/18 Review of Systems - Physician Review All systems were reviewed & negative as marked: Yes - Review of Systems Constitutional: absent: Fevers, Other (chills) Respiratory: SOB Cardiovascular: Edema. absent: Chest Pain Gastrointestinal: absent: Diarrhea, Nausea, Vomiting Genitourinary Male: absent: Dysuria, Frequency, Hematuria Musculoskeletal: absent: Back Pain, Neck Pain Neurological: absent: Headache, Dizziness Physical Exam Vital Signs Reviewed: Yes Temperature: Afebrile Blood Pressure: Hypertensive Pulse: Regular Respiratory Rate: Normal Appearance: Positive for: Well-Appearing, Non-Toxic, Comfortable Pain Distress: None Mental Status: Positive for: Alert and Oriented X 3 - Systems Exam Head: Present: Atraumatic, Normocephalic Pupils: Present: PERRL Extroacular Muscles: Present: EOMI Conjunctiva: Present: Normal Mouth: Present: Moist Mucous Membranes Neck: Present: Normal Range of Motion Respiratory/Chest: Present: Rales (bilaterally at bases ). No: Respiratory Distress, Accessory Muscle Use Cardiovascular: Present: Regular Rate and Rhythm, Normal S1, S2. No: Murmurs Abdomen: No: Tenderness, Distention, Peritoneal Signs Back: Present: Normal Inspection Upper Extremity: Present: Normal Inspection. No: Cyanosis, Edema Lower Extremity: Present: Edema (+4 bilateral LE edema) Neurological: Present: GCS=15, Speech Normal Skin: Present: Warm, Dry, Normal Color. No: Rashes Psychiatric: Present: Alert, Oriented x 3, Normal Insight, Normal Concentration Medical Decision Making ED Course and Treatment: 11/01/18 17:01 Impression: 87 year old male presents complaining of bilateral LE edema associated with shortness of breath for the past few days. exaam and history consistnet with chf. no testicular pain Plan: -- EKG -- Labs -- Chest X-ray -- Urinalysis -- Reassess and disposition Prior Visits: Notes and results from previous visits were reviewed. Progress Notes: EKG shows NSR at 69 BPM with non-specific ST/T wave changes. Interpreted by me. Chest X-ray Dictator : Brooklynn Llanos MD Report Date : 11/01/2018 18:08:49 IMPRESSION: Small bilateral pleural effusions and associated atelectasis/infiltrates. Interstitial edema and/or infection. Cardiomegaly. 11/01/18 18:[address] Mitchell who is aware and agrees with the plan. Accepts patient into his service. 11/01/18 20:15 diffuse leg edema. needs iv diuresis. lasix given. accpeted dr mitchell. - Lab Interpretations I have reviewed the lab results: Yes - RAD Interpretation Satellite Manager: Radiologist - EKG Interpretation Interpreted by ED Physician: Yes Type: 12 lead EKG - Scribe Statement The provider has reviewed the documentation as recorded by the Scribe César Carroll Provider Scribe Attestation: All medical record entries made by the Scribe were at my direction and personally dictated by me. I have reviewed the chart and agree that the record accurately reflects my personal performance of the history, physical exam, medical decision making, and the department course for this patient. I have also personally directed, reviewed, and agree with the discharge instructions and disposition. Disposition/Present on Arrival - Present on Arrival Any Indicators Present on Arrival: No History of DVT/PE: No History of Uncontrolled Diabetes: No Urinary Catheter: No History Surgical Site Infection Following: None - Disposition Have Diagnosis and Disposition been Completed?: Yes Diagnosis: CHF exacerbation, Renal insufficiency Disposition: HOSPITALIZED Disposition Time: 12:00 Patient Problems: Current Active Problems Problem Status Onset Acute urinary retention Acute Hypertension Acute Leukocytosis, unspecified Acute BPH (benign prostatic hyperplasia) Chronic Condition: FAIR
[2018-11-01 17:03] VITALS: BMI 30.2
[2018-11-01 17:20] LABS: BASO # 0.06 K/mm3 (0.0-2.0); BASO % 0.5 % (0.0-3.0); EOS # 0.2 (0.0-0.7); EOS % 2.1 % (1.5-5.0); HEMOGLOBIN 12.9 g/dL (14.0-18.0); LYMPH % 8.8 % (22.0-35.0); MEAN CELL VOLUME 61.7 fl (80.0-105.0); MEAN CORPUSCULAR HEMOGLOBIN 16.8 pg (25.0-35.0); MEAN CORPUSCULAR HGB CONC 27.2 g/dl (31.0-37.0); MONO # 0.7 (0.1-0.6); MONO % 5.6 % (1.0-6.0); PLATELET COUNT 451 10^3/uL (120.0-450.0); RBC 7.68 10^6/uL (3.5-6.1); RED CELL DISTRIBUTION WIDTH 21.6 % (11.5-14.5); WHITE BLOOD COUNT 11.6 10^3/uL (4.5-11.0)
[2018-11-01 17:28] LABS: INR 1.29; PARTIAL THROMBOPLASTIN TIME 40.2 Seconds (26.9-38.3); PROTHROMBIN TIME 14.3 SECONDS (9.4-12.5)
[2018-11-01 18:11] LABS: ALB/GLOB RATIO 1.4 (1.1-1.8); ALBUMIN 3.3 g/dL (3.0-4.8); CALCIUM 8.3 mg/dL (8.4-10.5)
--- NOTE | 2018-11-01 18:12 | RAD ---
HISTORY: sob COMPARISON: Chest x-ray performed 06/11/17 TECHNIQUE: Chest, one view. FINDINGS: LUNGS: Small bilateral pleural effusions and associated atelectasis/infiltrates. Interstitial edema and/or infection. No definite pneumothorax. CARDIOVASCULAR: Cardiomegaly. Ectatic aorta with atherosclerotic calcifications. OSSEOUS STRUCTURES: Osseous demineralization. Degenerative changes. VISUALIZED UPPER ABDOMEN: Unremarkable. OTHER FINDINGS: None. IMPRESSION: Small bilateral pleural effusions and associated atelectasis/infiltrates. Interstitial edema and/or infection. Cardiomegaly.
[2018-11-01 18:13] LABS: TROPONIN I 0.02 ng/mL
[2018-11-01 18:24] LABS: URINE APPEARANCE TURBID (CLEAR); URINE BILIRUBIN NEGATIVE (NEGATIVE); URINE BLOOD NEGATIVE (NEGATIVE); URINE COLOR YELLOW (YELLOW); URINE GLUCOSE (UA) NEGATIVE (NEGATIVE); URINE LEUKOCYTE ESTERASE NEGATIVE Leu/uL (NEGATIVE); URINE PROTEIN 100 mg/dL (<30 mg/dL); URINE UROBILINOGEN 0.2 E.U./dL (<1 E.U./dL)
[2018-11-01 18:31] LABS: URINE WBC 0 - 2 /hpf (0-6)
--- NOTE | 2018-11-01 21:41 | CARD ---
APPROVED REPORT Date of service: 11/01/2018 EKG Measurement Heart [id number] <Conclusion> Sinus rhythm with marked sinus arrhythmia with 1st degree AV block Baseline artifact Nonspecific T wave abnormality Abnormal ECG
[2018-11-02] MEDS: Enoxaparin 30 mg Syringe SC SCH (10:40)
[2018-11-02] MEDS: Insulin Reg-LOW-Coverage SC SCH ×3 (12:51→22:46)
--- NOTE | 2018-11-02 13:38 | CP.PCM.PCO ---
Physician Communication Note - Physician Communication Note Physician Communication Note: Echo result pending, continue IV lasix
[2018-11-02 13:43] LABS: CALCIUM 8.1 mg/dL (8.4-10.5)
--- NOTE | 2018-11-02 19:05 | CARD ---
APPROVED REPORT Date of service: 11/02/2018 EXAM: Two-dimensional and M-mode echocardiogram with Doppler and color Doppler. INDICATION Congestive Heart Failure 2D DIMENSIONS Left Atrium (2D)4.6 (1.6-4.0cm)IVSd1.4 (0.7-1.1cm) LVDd4.4 (3.9-5.9cm)PWd1.2 (0.7-1.1cm) LVDs3.4 (2.5-4.0cm)FS (%) 22.5 % LVEF (%)45.5 (>50%) M-Mode DIMENSIONS Aortic Root3.50 (2.2-3.7cm)Aortic Cusp Exc.1.60 (1.5-2.0cm) Aortic Valve AoV Peak Peywpeyh341.0cm/Mary Kate Peak GR.7mmHg Mitral Valve E/A ratio0.0 TDI E/Lateral E'0.0E/Medial E'0.0 Tricuspid Valve TR Peak [id number]/sRAP [id number] Peak Gr.49mmHg [id number] LEFT VENTRICLE The left ventricle is normal size. There is mild concentric left ventricular hypertrophy. The systolic function is mildly impaired.Ej.Fr: 40_45%. RIGHT VENTRICLE The right ventricle is normal size. ATRIA LA is Mildly Dilated. The right atrium size is normal. AORTIC VALVE Aortic Valve Thickened. Valve Opening Normal. Mild Aortic Regurge. MITRAL VALVE Thickened Mitral Valve Leaflets. Mitral Valve Opening Normal. Moderte to Severe Mitral Regurge. TRICUSPID VALVE The tricuspid valve is normal in structure. There is moderate tricuspid regurgitation.RVSP: 59 Moderate to Severe Pulmonary Hypertension. PERICARDIAL EFFUSION There is no pericardial effusion. <Conclusion> The left ventricle is normal size. There is mild concentric left ventricular hypertrophy. The systolic function is mildly impaired.Ej.Fr: 40_45%. The right ventricle is normal size. The right atrium size is normal. LA is Mildly Dilated. Aortic Valve Thickened. Valve Opening Normal. Mild Aortic Regurge. Thickened Mitral Valve Leaflets. Mitral Valve Opening Normal. Moderte to Severe Mitral Regurge. The tricuspid valve is normal in structure. There is moderate tricuspid regurgitation.RVSP: 59 Moderate to Severe Pulmonary Hypertension. There is no pericardial effusion.
--- NOTE | 2018-11-02 20:03 | CON ---
DATE: 11/02/2018 CONSULT SERVICE: Cardiology. REASON FOR CONSULTATION AND FOLLOWUP: Cardiac evaluation, admitted with acute decompensated congestive heart failure, swelling of the legs, scrotal swelling, while the patient was in monitor found to be Mobitz type 1 and Mobitz type 2 cardiac evaluation. BRIEF CLINICAL HISTORY: This is an 87-year-old male with a past medical history significant for coronary artery disease, status post a stent in the past, admitted here with complaint of bilateral lower extremity swelling and increasing shortness of breath as well as scrotal swelling. Denies any chest pain now. Denies any palpitation. Denies any nausea, vomiting, diarrhea or dizziness or near syncopal episode. While the patient was in monitor found to be Mobitz type 1, Mobitz type 2 block, transient, but hemodynamically remained stable during the night. PAST MEDICAL HISTORY: Significant for polycythemia vera, Hinduism, history of congestive heart failure in the past, history of type 2 diabetes, history of PTCA of right coronary artery in 2012 [facility] and later on history of a stent in the circumflex on 2016 and history of renal tubular acidosis in the past. PREVIOUS CARDIAC WORKUP: As follows; the patient had a stress test on 01/25/2017 that shows abnormal myocardial perfusion study with fixed defect, no reversible ischemia, ejection fraction 37%. An echo on 11/28/2016 showed ejection fraction within normal limit, hypokinesis of the apical inferior wall, mild aortic regurgitation, [id number] mitral regurgitation, mild tricuspid regurgitation, RV systolic pressure of 37. The patient had a stent in the circumflex dated on 06/14/2017, at that time the cardiac catheterization revealed patent stent in RCA, moderate disease in the left main, LAD, and RCA, LV ejection fraction reported 50%. EDP was in the range of 18. CURRENT MEDICATION: The patient at home was taking Lasix 20 mg daily, glimepiride 4 mg daily, clopidogrel 75 mg daily, fludrocortisone 0.1 mg daily, Flomax 0.4 mg daily and Mobic 15 mg daily. REVIEW OF SYSTEMS: As per HPI. ALLERGIES: TO PENICILLIN. PHYSICAL EXAMINATION: GENERAL: Height of the patient 5 feet 4 inches. Weight of the patient 166 pounds. Body mass index 28.6 kg/m2. VITAL SIGNS: Temperature afebrile, heart rate 61 and blood pressure 160/78. HEENT: PERRLA. Extraocular muscles intact. NECK: Supple. No carotid bruits. No thyromegaly. CHEST: Clear to auscultation. HEART: S1 and S2, regular. ABDOMEN: Soft. EXTREMITIES: Clubbing and cyanosis are negative. LABORATORY DATA: Blood workup as follows; WBC 11.6, hemoglobin 12.9, hematocrit 47.4 and platelet count 451. Chemistry shows sodium 135, potassium 5.8, chloride 105, carbon dioxide 21, anion gap of 15, BUN 48, creatinine 2 and BNP 19,100. EKG showed normal sinus. No acute ST-T wave changes noted. Chest x-ray done yesterday, mild encephalization noted, mild congestive changes noted. IMPRESSION: An 87-year-old male with a past medical history significant for coronary artery disease, status post percutaneous transluminal coronary angioplasty of right coronary artery in 2012, status post percutaneous transluminal coronary angioplasty of circumflex on 06/13/2017, admitted with decompensated congestive heart failure, ischemic cardiomyopathy and renal insufficiency. So far, troponin remains negative. Hyperkalemic and acute kidney injury with chronic renal insufficiency. Previous creatinine on 02/04/2018 was 1.3, now the patient had a creatinine of 2. So, possibly acute kidney injury on chronic renal insufficiency on chronic kidney disease, diabetes, hypertension, hyperlipidemia, cardiomyopathy, history of multiple stents in the past, admitted with decompensated congestive heart failure found to be also Mobitz type 1 while the patient was sleeping. RECOMMENDATION: Aggressive diuresis, give Kayexalate, repeat potassium, if it is more than 5 points we will give Kayexalate. Continue aggressive dialysis, echo to assess LV function. Further recommendations depending upon on hospital course. For now, we will avoid beta-seda. We will give the Holter. We will get a lipid profile, TSH and hemoglobin A1c. We will follow with you. Thank you Dr. Mitchell for providing us the opportunity in taking care of the patient, Monico Delgado. Swetha Jimenez MD
--- NOTE | 2018-11-02 22:01 | HP ---
DATE OF EXAM: 11/02/2018 HISTORY OF PRESENT ILLNESS: The patient is an 87-year-old male admitted through the emergency department on 11/01/2018 with shortness of breath and increased leg swelling over the past several weeks. The patient has recently returned from a trip to [place] and was brought to the emergency room by family members. He denies any chest pain. He reports some difficulty with ambulating. There is no cough. No fever. No chills. No nausea. No vomiting or diaphoresis. PAST MEDICAL HISTORY: Includes hypertension, hypertensive cardiovascular disease, and history of CHF. The patient has a history of type 2 diabetes mellitus with diabetic neuropathy and type 4 renal tubular acidosis. The patient also has a history of anemia. Coronary artery disease, status post stent placement several years ago. PAST SURGICAL HISTORY: Includes BPH, on Flomax. The patient has no significant past surgical history. CURRENT MEDICATIONS: Include Florinef 0.1 mg daily, glimepiride 4 mg daily, Plavix 75 mg daily, Flomax 0.4 mg daily, and meloxicam 15 mg daily for arthritis. SOCIAL HISTORY: The patient has no history of tobacco or alcohol use. ALLERGIES: THE PATIENT REPORTS AN ALLERGY TO PENICILLIN WITH ANAPHYLAXIS. FAMILY HISTORY: Noncontributory. REVIEW OF SYSTEMS: As above. PHYSICAL EXAMINATION: GENERAL: The patient is a well-developed male in no acute distress. VITAL SIGNS: Blood pressure 160/78, temperature 98, pulse 61, and respiratory rate 20. HEENT: Head is normocephalic and atraumatic. Pupils equal, round, and reactive to light. Extraocular movements intact. NECK: Supple with no thyromegaly. No carotid bruit. No adenopathy. LUNGS: Show bibasilar rales. HEART: Regular rate and rhythm. ABDOMEN: Soft and nontender. Bowel sounds are normoactive. EXTREMITIES: Without cyanosis or clubbing. There is 2+ edema to the calves bilaterally. NEUROLOGIC: The patient is awake and oriented x3 without focal sensory or motor deficits. SKIN: Warm and dry. LABORATORY DATA: WBC 11.6, hemoglobin 12.9, hematocrit 47.4, and platelet count 451. Sodium 135, potassium 5.8, chloride 105, CO2 of 21, BUN 48, creatinine 2, glucose 190, alkaline phosphatase elevated 230, and LDH 780. BNP is elevated at 19,100. Troponin is 0.02. Chest x-ray shows bilateral small pleural effusions and associated atelectasis with some interstitial edema and/or infection noted. IMPRESSION: 1. Hypertension, hypertensive cardiovascular disease/congestive heart failure. 2. Type 2 diabetes mellitus with diabetic neuropathy and hyperkalemia secondary to type 4 renal tubular acidosis. 3. Chronic kidney disease stage III. 4. Degenerative joint disease. 5. Benign prostatic hyperplasia. 6. Coronary Artery Disease PLAN: The patient is admitted to the telemetry unit. We will obtain Cardiology consultation with Dr. Jimenez/Kaushik, start IV Lasix, oxygen, regular insulin coverage, and heart-healthy diet. Julio C Mitchell JD/ NEREIDA
[2018-11-03 07:55] LABS: BASO # 0.03 K/mm3 (0.0-2.0); BASO % 0.1 % (0.0-3.0); HEMOGLOBIN 13.6 g/dL (14.0-18.0); LYMPH # 0.6 (1.2-3.4); LYMPH % 2.3 % (22.0-35.0); MEAN CELL VOLUME 60.5 fl (80.0-105.0); MONO # 0.6 (0.1-0.6); MONO % 2.3 % (1.0-6.0); PLATELET COUNT 498 10^3/uL (120.0-450.0); RED CELL DISTRIBUTION WIDTH 21.8 % (11.5-14.5)
[2018-11-03 08:05] LABS: RBC 8.42 10^6/uL (3.5-6.1)
[2018-11-03 08:07] LABS: WHITE BLOOD COUNT 26.8 10^3/uL (4.5-11.0)
[2018-11-03 08:16] LABS: LYMPHOCYTE 3 % (22.0-35.0); NEUTROPHIL 97 % (50.0-70.0)
[2018-11-03 08:17] LABS: ALB/GLOB RATIO 1.3 (1.1-1.8); ALBUMIN 3.4 g/dL (3.0-4.8); ANISOCYTOSIS 1+; CALCIUM 8.5 mg/dL (8.4-10.5); HYPOCHROMIA 1+; POIKILOCYTOSIS 2+
[2018-11-03 08:18] LABS: LARGE PLATELETS PRESENT; MICROCYTOSIS 2+; OVALOCYTES 2+; PLATELET ESTIMATE NORMAL (NORMAL); POLYCHROMASIA 1+
[2018-11-03] MEDS: Insulin Reg-LOW-Coverage SC SCH ×4 (09:25→22:45)
[2018-11-03] MEDS: Enoxaparin 30 mg Syringe SC SCH (09:26)
[2018-11-03 10:16] LABS: HEMOGLOBIN 12.5 g/dL (14.0-18.0); MEAN CORPUSCULAR HEMOGLOBIN 16.8 pg (25.0-35.0); PLATELET COUNT 431 10^3/uL (120.0-450.0); RBC 7.45 10^6/uL (3.5-6.1); RED CELL DISTRIBUTION WIDTH 21.4 % (11.5-14.5)
[2018-11-03 10:26] LABS: WHITE BLOOD COUNT 26.8 10^3/uL (4.5-11.0)
[2018-11-03 10:27] LABS: ALB/GLOB RATIO 1.3 (1.1-1.8); ALBUMIN 2.9 g/dL (3.0-4.8)
[2018-11-03 10:38] LABS: TROPONIN I 0.05 ng/mL
--- NOTE | 2018-11-03 11:03 | CP.PCM.PN ---
Subjective - Date & Time of Evaluation Date of Evaluation: 11/03/18 Time of Evaluation: 06:35 - Subjective Subjective: Awake, alert, no distress Reason for consultation and follow up: Cardiac evaluation of shortness of breath, decompensated congestive heart failure,history of CHF,coronary artery disease with stents, diabetes Seen and examined by me and Dr. Jimenez Objective - Vital Signs/Intake and Output Vital Signs (last 24 hours): Temp Pulse Resp BP Pulse Ox 98.0 F 95 H 20 161/74 H 98 11/03/18 06:00 11/03/18 06:00 11/03/18 06:00 11/03/18 09:28 11/03/18 06:00 Intake and Output: 11/03/18 11/03/18 06:59 18:59 Intake Total 1080 Output Total 1250 Balance -170 - Medications Medications: Current Medications Aspirin (Ecotrin) 81 mg PO DAILY [facility] Last Admin: 11/03/18 09:26 Dose: 81 mg Clopidogrel Bisulfate (Plavix) 75 mg PO DAILY [facility] Last Admin: 11/03/18 09:26 Dose: 75 mg Enoxaparin Sodium (Lovenox) 30 mg SC DAILY [facility]; Protocol Last Admin: 11/03/18 09:26 Dose: 30 mg Fludrocortisone Acetate (Florinef) 0.1 mg PO QAM [facility] Last Admin: 11/03/18 09:26 Dose: 0.1 mg Furosemide (Lasix) 40 mg IVP Q12 [facility] Last Admin: 11/03/18 09:28 Dose: 40 mg Insulin Human Regular (Humulin R Low) 0 units SC ACHS [facility]; Protocol Last Admin: 11/03/18 09:25 Dose: 1 units Tamsulosin HCl (Flomax) 0.4 mg PO DAILY [facility] Last Admin: 11/03/18 09:26 Dose: 0.4 mg - Labs Labs: 11/03/18 10:05 11/03/18 10:05 PT 14.3 SECONDS (9.4-12.5) H 11/01/18 17:10 INR 1.29 11/01/18 17:10 APTT 40.2 Seconds (26.9-38.3) H 11/01/18 17:10 - Constitutional Appears: Non-toxic, No Acute Distress - Head Exam Head Exam: NORMAL INSPECTION, NORMOCEPHALIC - Eye Exam Eye Exam: Normal appearance Pupil Exam: NORMAL ACCOMODATION - ENT Exam ENT Exam: Mucous Membranes Moist, Normal Exam - Neck Exam Neck Exam: Normal Inspection - Respiratory Exam Respiratory Exam: Decreased Breath Sounds, Clear to Ausculation Bilateral, NORMAL BREATHING PATTERN - Cardiovascular Exam Cardiovascular Exam: REGULAR RHYTHM, +S1, +S2 Additional comments: NSR Mobitz 1 - GI/Abdominal Exam GI & Abdominal Exam: Soft, Normal Bowel Sounds - Extremities Exam Extremities Exam: Full ROM, Normal Capillary Refill - Neurological Exam Neurological Exam: Alert, Awake, Oriented x3 - Psychiatric Exam Psychiatric exam: Normal Affect, Normal Mood - Skin Skin Exam: Dry, Normal Color, Warm Assessment and Plan - Assessment and Plan (Free Text) Assessment: An 87 year old male who came in to the ER due to shortness of breath and leg swelling. History of systolic dysfunction congestive heart failure, coronary artery disease post PTCA of RCA in 2012 then stent of circumflex in 2017. diabetes, polycythemia vera,chronic renal insufficiency, renal tubular acidosis. While in telemetry, showed Mobitz 1. hyperkalemia, kayexalate given.Echo done yesterday and showed LVEF 40-45%, systolic function mildly impaired, moderate to severe mitral regurgitation, moderate tricuspid regurgitation, RVSP 59mmHg, moderate to severe pulmonary hypertension. Continue to diurese. Denies shortness of breath. Feels okay. Plan: Denies shortness of breath Heart rate stable Blood pressure stable On Holter monitor, will follow up result Continue to diurese On ASA 81 mg daily,Plavix 75 mg daily,Lovenox 30 mg daily,Lasix 40 mg BID, Flomax 0.4 mg daily. Continue current treatment Continue current medications Will follow up Plan and treatment discussed with Dr. Jimenez
--- NOTE | 2018-11-03 13:37 | CP.PCM.PCO ---
Physician Communication Note - Physician Communication Note Physician Communication Note: CHF cont. IV lasix, s/p urinary retention PT with mitchell, leukocytosis noted
--- NOTE | 2018-11-03 14:06 | CP.PCM.PN ---
Subjective - Date & Time of Evaluation Date of Evaluation: 11/03/18 Time of Evaluation: 09:00 - Subjective Subjective: c/o abd pain & inability to urinate, denies chest pain, no SOB Objective - Vital Signs/Intake and Output Vital Signs (last 24 hours): Temp Pulse Resp BP Pulse Ox 98.0 F 96 H 20 166/84 H 98 11/03/18 12:00 11/03/18 12:00 11/03/18 12:00 11/03/18 12:00 11/03/18 06:00 Intake and Output: 11/03/18 11/03/18 06:59 18:59 Intake Total 1080 Output Total 1250 Balance -170 - Medications Medications: Current Medications Aspirin (Ecotrin) 81 mg PO DAILY [facility] Last Admin: 11/03/18 09:26 Dose: 81 mg Clopidogrel Bisulfate (Plavix) 75 mg PO DAILY [facility] Last Admin: 11/03/18 09:26 Dose: 75 mg Enoxaparin Sodium (Lovenox) 30 mg SC DAILY [facility]; Protocol Last Admin: 11/03/18 09:26 Dose: 30 mg Fludrocortisone Acetate (Florinef) 0.1 mg PO QAM [facility] Last Admin: 11/03/18 09:26 Dose: 0.1 mg Furosemide (Lasix) 40 mg IVP Q12 [facility] Last Admin: 11/03/18 09:28 Dose: 40 mg Insulin Human Regular (Humulin R Low) 0 units SC ACHS [facility]; Protocol Last Admin: 11/03/18 12:51 Dose: 2 units Tamsulosin HCl (Flomax) 0.4 mg PO DAILY [facility] Last Admin: 11/03/18 09:26 Dose: 0.4 mg - Labs Labs: 11/03/18 10:05 11/03/18 10:05 PT 14.3 SECONDS (9.4-12.5) H 11/01/18 17:10 INR 1.29 11/01/18 17:10 APTT 40.2 Seconds (26.9-38.3) H 11/01/18 17:10 - Respiratory Exam Respiratory Exam: Rales - Cardiovascular Exam Cardiovascular Exam: REGULAR RHYTHM - GI/Abdominal Exam GI & Abdominal Exam: Soft, Normal Bowel Sounds - Exam Exam: Bladder Distension - Extremities Exam Extremities Exam: Pedal Edema - Neurological Exam Neurological Exam: Alert, Awake - Skin Skin Exam: Dry, Warm Assessment and Plan (1) CHF (congestive heart failure) Status: Acute (2) Coronary artery disease Status: Chronic (3) Renal tubular acidosis, type IV Status: Chronic (4) Type II diabetes mellitus Status: Chronic (5) Acute urinary retention Status: Acute (6) BPH (benign prostatic hyperplasia) Status: Chronic (7) Leukocytosis, unspecified Status: Acute - Assessment and Plan (Free Text) Plan: mitchell catheter placed, check urine C&S, monitor lytes/WBC's, continue IV Lasix, cardio follow-up
[2018-11-03] MEDS ORDERED: Potassium Chloride 20 mEq ER Tab PO ONE (15:54)
[2018-11-03] MEDS: Milrinone 20mg/100ml D5W 100 ML IV PRN (16:15)
--- NOTE | 2018-11-03 18:43 | CARD ---
APPROVED REPORT Date of service: 11/03/2018 EKG Measurement Heart [id number] CT [id number] <Conclusion> Sinus rhythm with 1st degree AV block Poor R wave progression in Precordial leads Non specific T-wave changes Abnormal ECG
[2018-11-04] MEDS: Milrinone 20mg/100ml D5W 100 ML IV PRN (07:01)
--- NOTE | 2018-11-04 07:07 | CP.PCM.PN ---
Subjective - Date & Time of Evaluation Date of Evaluation: 11/04/18 Time of Evaluation: 06:45 - Subjective Subjective: Awake, alert, no distress, feels better Reason for consultation and follow up: Cardiac evaluation of shortness of breath, decompensated congestive heart failure,history of CHF,coronary artery disease with stents, diabetes Seen and examined by me and Dr. Jimenez Objective - Vital Signs/Intake and Output Vital Signs (last 24 hours): Temp Pulse Resp BP Pulse Ox 99.8 F H 96 H 20 130/59 L 94 L 11/04/18 00:01 11/04/18 04:58 11/04/18 00:01 11/04/18 00:01 11/04/18 00:01 Intake and Output: 11/04/18 11/04/18 06:59 18:59 Intake Total 600 Output Total 1550 Balance -950 - Medications Medications: Current Medications Aspirin (Ecotrin) 81 mg PO DAILY [facility] Last Admin: 11/03/18 09:26 Dose: 81 mg Clopidogrel Bisulfate (Plavix) 75 mg PO DAILY [facility] Last Admin: 11/03/18 09:26 Dose: 75 mg Enoxaparin Sodium (Lovenox) 30 mg SC DAILY [facility]; Protocol Last Admin: 11/03/18 09:26 Dose: 30 mg Fludrocortisone Acetate (Florinef) 0.1 mg PO QAM [facility] Last Admin: 11/03/18 09:26 Dose: 0.1 mg Furosemide (Lasix) 40 mg IVP Q12 [facility] Last Admin: 11/03/18 22:01 Dose: 40 mg Milrinone Lactate/Dextrose (Primacor 20mg/100ml D5w) 100 mls @ 4.54 mls/hr IV .Q22H2M PRN; Protocol PRN Reason: TITRATE PER MD ORDER Stop: 11/05/18 23:59 Last Admin: 11/03/18 16:15 Dose: 0.2 mcg/kg/min, 4.54 mls/hr Insulin Human Regular (Humulin R Low) 0 units SC ACHS [facility]; Protocol Last Admin: 11/03/18 22:45 Dose: Not Given Tamsulosin HCl (Flomax) 0.4 mg PO DAILY [facility] Last Admin: 11/03/18 09:26 Dose: 0.4 mg - Labs Labs: 11/03/18 10:05 11/03/18 10:05 PT 14.3 SECONDS (9.4-12.5) H 11/01/18 17:10 INR 1.29 11/01/18 17:10 APTT 40.2 Seconds (26.9-38.3) H 11/01/18 17:10 - Constitutional Appears: Non-toxic, No Acute Distress - Head Exam Head Exam: NORMAL INSPECTION, NORMOCEPHALIC - Eye Exam Eye Exam: Normal appearance Pupil Exam: NORMAL ACCOMODATION - ENT Exam ENT Exam: Mucous Membranes Moist, Normal Exam - Respiratory Exam Respiratory Exam: Clear to Ausculation Bilateral, NORMAL BREATHING PATTERN - Cardiovascular Exam Cardiovascular Exam: REGULAR RHYTHM, +S1, +S2 - GI/Abdominal Exam GI & Abdominal Exam: Soft, Normal Bowel Sounds - Exam Additional comments: mitchell catheter - Extremities Exam Extremities Exam: Full ROM, Normal Capillary Refill - Neurological Exam Neurological Exam: Alert, Awake, Oriented x3 - Psychiatric Exam Psychiatric exam: Normal Affect, Normal Mood - Skin Skin Exam: Dry, Normal Color Assessment and Plan - Assessment and Plan (Free Text) Assessment: An 87 year old male who came in to the ER due to shortness of breath and leg swelling. History of systolic dysfunction congestive heart failure, coronary artery disease post PTCA of RCA in 2012 then stent of circumflex in 2017. diabetes, polycythemia vera,chronic renal insufficiency, renal tubular acidosis. While in telemetry, showed Mobitz 1. hyperkalemia, kayexalate given.Echo done yesterday and showed LVEF 40-45%, systolic function mildly impaired, moderate to severe mitral regurgitation, moderate tricuspid regurgitation, RVSP 59mmHg, moderate to severe pulmonary hypertension. Continue to diurese. Continue Primacor for the next 24 hours. Denies shortness of breath. Feels okay. Will follow up Holter monitor results/reading. Plan: Denies shortness of breath Heart rate stable Blood pressure stable Continue primacor for the next 24 hours On Holter monitor, will follow up result Continue to diurese On ASA 81 mg daily,Plavix 75 mg daily,Lovenox 30 mg daily,Lasix 40 mg BID, Flomax 0.4 mg daily. Continue current treatment Continue current medications Will follow up Plan and treatment discussed with Dr. Jimenez
[2018-11-04 07:23] LABS: BASO # 0.02 K/mm3 (0.0-2.0); BASO % 0.1 % (0.0-3.0); HEMOGLOBIN 11.4 g/dL (14.0-18.0); LYMPH # 0.3 (1.2-3.4); LYMPH % 1.4 % (22.0-35.0); MEAN CORPUSCULAR HEMOGLOBIN 16.3 pg (25.0-35.0); MEAN CORPUSCULAR HGB CONC 27.7 g/dl (31.0-37.0); MONO # 0.3 (0.1-0.6); MONO % 1.2 % (1.0-6.0); PLATELET COUNT 445 10^3/uL (120.0-450.0); RBC 6.98 10^6/uL (3.5-6.1); RED CELL DISTRIBUTION WIDTH 21.5 % (11.5-14.5); WHITE BLOOD COUNT 24.5 10^3/uL (4.5-11.0)
[2018-11-04 07:46] LABS: ALB/GLOB RATIO 1.1 (1.1-1.8); ALBUMIN 2.4 g/dL (3.0-4.8); CALCIUM 7.4 mg/dL (8.4-10.5)
[2018-11-04] MEDS: Insulin Reg-LOW-Coverage SC SCH ×4 (07:47→21:47)
[2018-11-04] MEDS ORDERED: Magnesium Sulfate 2 gm/50 ml 2 GM/50 ML BAG IVPB ONE (09:14)
[2018-11-04] MEDS ORDERED: Vancomycin 1gm in NS 250ml 1 GM/250 ML BAG IVPB STA (09:16)
--- NOTE | 2018-11-04 09:36 | RAD ---
Date of service: 11/04/2018 HISTORY: reeval COMPARISON: 11/01/2018 TECHNIQUE: 1 view obtained. FINDINGS: LUNGS: Bibasilar infiltrates are seen. The diaphragmatic borders are obscured. There is also a moderate vascular congestion. PLEURA: Small bilateral pleural effusions CARDIOVASCULAR: No aortic atherosclerotic calcification present. Mild cardiomegaly no pulmonary vascular congestion. OSSEOUS STRUCTURES: No significant abnormalities. VISUALIZED UPPER ABDOMEN: Normal. OTHER FINDINGS: None. IMPRESSION: Bibasilar infiltrates are seen. The diaphragmatic borders are obscured. There is also a moderate vascular congestion.
[2018-11-04] MEDS ORDERED: Meropenem IV 1 gm in NS 1 GM/50 ML BAG IVPB SCH (10:00)
[2018-11-04] MEDS: Enoxaparin 30 mg Syringe SC SCH (10:59)
[2018-11-04] MEDS: Magnesium Oxide 400 mg Tab UD PO SCH ×2 (11:01→18:45)
--- NOTE | 2018-11-04 12:25 | CP.PCM.PCO ---
Additional Comments - Additional Comments Additional Comments: fever 101.5, leukocytosis, procalcitionin, blood cultures and urine cultures pending, ID consulted, Vancomycin IV x 1 dose given, Merrem x 1 dose given, will await further recommendations from ID. Continue Primacor and IV lasix as per cardiology.
--- NOTE | 2018-11-04 13:44 | CP.PCM.PN ---
Subjective - Date & Time of Evaluation Date of Evaluation: 11/04/18 Time of Evaluation: 11:40 - Subjective Subjective: OOB in chair, NAD, denies chest pain, no SOB Objective - Vital Signs/Intake and Output Vital Signs (last 24 hours): Temp Pulse Resp BP Pulse Ox 97.8 F 91 H 20 112/50 L 94 L 11/04/18 12:00 11/04/18 12:00 11/04/18 12:00 11/04/18 12:00 11/04/18 00:01 Intake and Output: 11/04/18 11/04/18 06:59 18:59 Intake Total 600 580 Output Total 1550 700 Balance -950 -120 - Medications Medications: Current Medications Aspirin (Ecotrin) 81 mg PO DAILY [facility] Last Admin: 11/04/18 11:01 Dose: 81 mg Clopidogrel Bisulfate (Plavix) 75 mg PO DAILY [facility] Last Admin: 11/04/18 11:00 Dose: 75 mg Enoxaparin Sodium (Lovenox) 30 mg SC DAILY [facility]; Protocol Last Admin: 11/04/18 10:59 Dose: 30 mg Fludrocortisone Acetate (Florinef) 0.1 mg PO QAM [facility] Last Admin: 11/04/18 11:00 Dose: 0.1 mg Furosemide (Lasix) 40 mg IVP Q12 [facility] Last Admin: 11/04/18 10:59 Dose: 40 mg Milrinone Lactate/Dextrose (Primacor 20mg/100ml D5w) 100 mls @ 4.54 mls/hr IV .Q22H2M PRN; Protocol PRN Reason: TITRATE PER MD ORDER Stop: 11/05/18 23:59 Last Admin: 11/04/18 07:01 Dose: 0.2 mcg/kg/min, 4.54 mls/hr Meropenem/Sodium Chloride (Merrem Iv 500 Mg/Ns 50 Ml) 500 mg in 50 mls @ 100 mls/hr IVPB Q8 [facility]; Protocol Stop: 11/13/18 14:01 Insulin Human Regular (Humulin R Low) 0 units SC ACHS [facility]; Protocol Last Admin: 11/04/18 12:53 Dose: 1 units Linezolid (Zyvox) 600 mg PO BID [facility]; Protocol Stop: 11/11/18 13:31 Magnesium Oxide (Mag-Ox) 400 mg PO BID [facility] Last Admin: 11/04/18 11:01 Dose: 400 mg Tamsulosin HCl (Flomax) 0.4 mg PO DAILY [facility] Last Admin: 11/04/18 11:01 Dose: 0.4 mg - Labs Labs: 11/04/18 06:55 11/04/18 06:40 PT 14.3 SECONDS (9.4-12.5) H 11/01/18 17:10 INR 1.29 11/01/18 17:10 APTT 40.2 Seconds (26.9-38.3) H 11/01/18 17:10 - Respiratory Exam Respiratory Exam: Rhonchi, NORMAL BREATHING PATTERN - Cardiovascular Exam Cardiovascular Exam: REGULAR RHYTHM - GI/Abdominal Exam GI & Abdominal Exam: Soft, Normal Bowel Sounds - Extremities Exam Extremities Exam: Pedal Edema - Neurological Exam Neurological Exam: Alert, Awake - Skin Skin Exam: Dry, Warm Assessment and Plan (1) CHF (congestive heart failure) Status: Acute (2) Coronary artery disease Status: Chronic (3) Renal tubular acidosis, type IV Status: Chronic (4) Type II diabetes mellitus Status: Chronic (5) Acute urinary retention Status: Acute (6) BPH (benign prostatic hyperplasia) Status: Chronic (7) Leukocytosis, unspecified Status: Acute - Assessment and Plan (Free Text) Plan: empiric IV Meropenem & PO Zyvox started per ID, continue Lasix/cardio follow-up
[2018-11-04] MEDS: MEROPENEM 500 MG in NS 500 MG/50 ML BAG IVPB SCH ×2 (14:45→21:52)
--- NOTE | 2018-11-05 01:19 | CON ---
DATE: 11/04/2018 The patient is seen in Room #277, Bed #2. CHIEF COMPLAINT: Weakness times several days and shortness of breath. This is an 87-year-old male. The patient says he is complaining also of a new fever of 101 yesterday. The patient did not have fever on the day of admission on 11/01, did not have any fever on 11/02 and 11/03; it was only on the third day. HISTORY OF PRESENT ILLNESS: This is an 87-year-old male with past medical history significant for hypertension, cardiovascular disease, coronary artery disease, congestive heart failure, diabetes, diabetic neuropathy, type 4 renal tubular acidosis, a history of cardiac catheterization with stent placements and a history of anemia and BPH, who was admitted with a diagnosis of congestive heart failure and now the patient had a fever yesterday and had an erythematous left arm edema where the IV site was, and no chest pain, no shortness of breath this morning and no diarrhea or constipation. No bright red blood per rectum. No melena. PAST MEDICAL HISTORY: Significant for hypertension, coronary artery disease, congestive heart failure, diabetes, diabetic neuropathy, type 4 renal tubular acidosis, BPH, and anemia. PAST SURGICAL HISTORY: Significant for cataract surgery and cardiac catheterization with stent placement. REVIEW OF SYSTEMS: A 12-point review of systems is performed. ALLERGIES: THE PATIENT HAS ALLERGY TO PENICILLIN, QUESTIONABLE RASH. HOME MEDICATIONS: Include glimepiride, Clopidogrel, Flomax, and Lasix. PHYSICAL EXAMINATION: GENERAL: On exam, the patient is in bed. VITAL SIGNS: Temperature of 101.5 today and heart rate of 92, respiratory rate of 20, blood pressure is 117/54. HEENT: Examination of HEENT is unremarkable. NECK: Supple. LUNGS: Have decreased breath sounds. HEART: Normal S1, S2. ABDOMEN: Soft, nontender. SKIN: Examination of the left arm shows significant erythema and edema. LABORATORY DATA: Laboratory examination reveals a white count of 24,000, hemoglobin of 11, platelets of 445, and chemistries reveal a BUN of 47, creatinine of 1.9, and the patient was admitted with a creatinine of 2.0. However, on the last admission in 02/2008, reveals the patient to have a creatinine of 1.2, now it is up to 2. Urinalysis is noted and microbiology reveals a gram-negative karol in the urine, although the urinalysis is not impressive. The patient did develop urinary retention now with a Chapa catheter in and the patient also had a chest x-ray where bibasilar infiltrates were seen. Dr. Jimenez's progress note is reviewed. Blood cultures have been obtained and the results are pending. ASSESSMENT AND PLAN: This is an 87-year-old male who was seen earlier today with congestive heart failure and now has severe sepsis with a left arm cellulitis and healthcare-associated pneumonia with acute kidney injury; his creatinine has changed from 1.2 to 2. We will treat the patient with Zyvox and meropenem since the patient is allergic to penicillin and we will also order an ultrasound of the left arm to rule out for a thrombus, significant edema of that arm and we will make further recommendations upon the availability of the initial culture results. We will follow the WBC's, and we will make further recommendations. Juan Francisco Brady MD
[2018-11-05] MEDS: MEROPENEM 500 MG in NS 500 MG/50 ML BAG IVPB SCH ×3 (05:20→22:07)
[2018-11-05] MEDS: Milrinone 20mg/100ml D5W 100 ML IV PRN (05:21)
--- NOTE | 2018-11-05 09:01 | CP.PCM.PN ---
Subjective - Date & Time of Evaluation Date of Evaluation: 11/05/18 Time of Evaluation: 07:05 - Subjective Subjective: Sitting side of bed, Awake, alert, no distress, feels better Reason for consultation and follow up: Cardiac evaluation of shortness of breath, decompensated congestive heart failure, history of CHF,coronary artery disease with stents, diabetes Seen and examined by me and Dr. Faulkner Objective - Vital Signs/Intake and Output Vital Signs (last 24 hours): Temp Pulse Resp BP Pulse Ox 98.5 F 93 H 20 140/61 95 11/05/18 05:31 11/05/18 05:31 11/05/18 05:31 11/05/18 05:31 11/05/18 05:31 Intake and Output: 11/05/18 11/05/18 06:59 18:59 Intake Total 340 Output Total 1100 Balance -760 - Medications Medications: Current Medications Aspirin (Ecotrin) 81 mg PO DAILY [facility] Last Admin: 11/04/18 11:01 Dose: 81 mg Clopidogrel Bisulfate (Plavix) 75 mg PO DAILY [facility] Last Admin: 11/04/18 11:00 Dose: 75 mg Enoxaparin Sodium (Lovenox) 30 mg SC DAILY [facility]; Protocol Last Admin: 11/04/18 10:59 Dose: 30 mg Fludrocortisone Acetate (Florinef) 0.1 mg PO QAM [facility] Last Admin: 11/04/18 11:00 Dose: 0.1 mg Furosemide (Lasix) 40 mg IVP Q12 [facility] Last Admin: 11/04/18 21:53 Dose: 40 mg Milrinone Lactate/Dextrose (Primacor 20mg/100ml D5w) 100 mls @ 4.54 mls/hr IV .Q22H2M PRN; Protocol PRN Reason: TITRATE PER MD ORDER Stop: 11/05/18 23:59 Last Admin: 11/05/18 05:21 Dose: 0.2 mcg/kg/min, 4.54 mls/hr Meropenem/Sodium Chloride (Merrem Iv 500 Mg/Ns 50 Ml) 500 mg in 50 mls @ 100 mls/hr IVPB Q8 [facility]; Protocol Stop: 11/13/18 14:01 Last Admin: 11/05/18 05:20 Dose: 100 mls/hr Insulin Human Regular (Humulin R Low) 0 units SC ACHS [facility]; Protocol Last Admin: 11/04/18 21:47 Dose: Not Given Linezolid (Zyvox) 600 mg PO BID [facility]; Protocol Stop: 11/11/18 13:31 Last Admin: 11/04/18 18:45 Dose: 600 mg Magnesium Oxide (Mag-Ox) 400 mg PO BID [facility] Last Admin: 11/04/18 18:45 Dose: 400 mg Tamsulosin HCl (Flomax) 0.4 mg PO DAILY [facility] Last Admin: 11/04/18 11:01 Dose: 0.4 mg - Labs Labs: 11/04/18 06:55 11/04/18 06:40 PT 14.3 SECONDS (9.4-12.5) H 11/01/18 17:10 INR 1.29 11/01/18 17:10 APTT 40.2 Seconds (26.9-38.3) H 11/01/18 17:10 - Constitutional Appears: Non-toxic, No Acute Distress - Head Exam Head Exam: NORMAL INSPECTION, NORMOCEPHALIC - Eye Exam Eye Exam: Normal appearance Pupil Exam: NORMAL ACCOMODATION - ENT Exam ENT Exam: Mucous Membranes Moist, Normal Exam - Respiratory Exam Respiratory Exam: Decreased Breath Sounds, Clear to Ausculation Bilateral, NORMAL BREATHING PATTERN - Cardiovascular Exam Cardiovascular Exam: REGULAR RHYTHM, +S1, +S2 - GI/Abdominal Exam GI & Abdominal Exam: Soft, Normal Bowel Sounds - Exam Additional comments: mitchell catheter - Extremities Exam Extremities Exam: Full ROM Additional comments: 2+ leg edema 1+ hand edema - Neurological Exam Neurological Exam: Alert, Awake, Oriented x3 - Psychiatric Exam Psychiatric exam: Normal Affect, Normal Mood - Skin Skin Exam: Dry, Normal Color, Warm Assessment and Plan - Assessment and Plan (Free Text) Assessment: An 87 year old male who came in to the ER due to shortness of breath and leg swelling. History of systolic dysfunction congestive heart failure, coronary artery disease post PTCA of RCA in 2012 then stent of circumflex in 2017. diabetes, polycythemia vera,chronic renal insufficiency, renal tubular acidosis. While in telemetry, showed Mobitz 1. hyperkalemia, kayexalate given.Echo done yesterday and showed LVEF 40-45%, systolic function mildly impaired, moderate to severe mitral regurgitation, moderate tricuspid regurgitation, RVSP 59mmHg, moderate to severe pulmonary hypertension. Continue to diurese. Continue Primacor for today. Denies shortness of breath. Feels okay. Will follow up Holter monitor results/reading.,Preliminary result showed NSR, lowest heart rate 38/min, highest 114/min. No need for PPM. Leukocytosis, ID on consult. On IV antibiotics as ordered. Plan: Denies shortness of breath,feels better Heart rate stable Blood pressure stable Continue Primacor for today Continue to diurese On ASA 81 mg daily,Plavix 75 mg daily,Lovenox 30 mg daily, Lasix 40 mg BID, Flomax 0.4 mg daily. Continue current treatment Continue current medications Continue IV antibiotics per ID Elevate leg and arm Will follow up Plan and treatment discussed with Dr. Faulkner
[2018-11-05] MEDS: Magnesium Oxide 400 mg Tab UD PO SCH ×2 (09:37→17:56)
[2018-11-05] MEDS: Enoxaparin 30 mg Syringe SC SCH (09:37)
[2018-11-05] MEDS: Insulin Reg-LOW-Coverage SC SCH ×4 (09:38→22:30)
--- NOTE | 2018-11-05 10:42 | CP.PCM.PN ---
Subjective - Date & Time of Evaluation Date of Evaluation: 11/05/18 Time of Evaluation: 09:40 - Subjective Subjective: resting comfortably, NAD, denies chest pain, no SOB Objective - Vital Signs/Intake and Output Vital Signs (last 24 hours): Temp Pulse Resp BP Pulse Ox 98.5 F 93 H 20 123/54 L 95 11/05/18 05:31 11/05/18 05:31 11/05/18 05:31 11/05/18 09:38 11/05/18 05:31 Intake and Output: 11/05/18 11/05/18 06:59 18:59 Intake Total 340 Output Total 1100 Balance -760 - Medications Medications: Current Medications Aspirin (Ecotrin) 81 mg PO DAILY [facility] Last Admin: 11/05/18 09:37 Dose: 81 mg Clopidogrel Bisulfate (Plavix) 75 mg PO DAILY [facility] Last Admin: 11/05/18 09:37 Dose: 75 mg Enoxaparin Sodium (Lovenox) 30 mg SC DAILY [facility]; Protocol Last Admin: 11/05/18 09:37 Dose: 30 mg Fludrocortisone Acetate (Florinef) 0.1 mg PO QAM [facility] Last Admin: 11/05/18 09:38 Dose: 0.1 mg Furosemide (Lasix) 40 mg IVP Q12 [facility] Last Admin: 11/05/18 09:38 Dose: 40 mg Milrinone Lactate/Dextrose (Primacor 20mg/100ml D5w) 100 mls @ 4.54 mls/hr IV .Q22H2M PRN; Protocol PRN Reason: TITRATE PER MD ORDER Stop: 11/05/18 23:59 Last Admin: 11/05/18 05:21 Dose: 0.2 mcg/kg/min, 4.54 mls/hr Meropenem/Sodium Chloride (Merrem Iv 500 Mg/Ns 50 Ml) 500 mg in 50 mls @ 100 mls/hr IVPB Q8 [facility]; Protocol Stop: 11/13/18 14:01 Last Admin: 11/05/18 05:20 Dose: 100 mls/hr Insulin Human Regular (Humulin R Low) 0 units SC ACHS [facility]; Protocol Last Admin: 11/05/18 09:38 Dose: Not Given Linezolid (Zyvox) 600 mg PO BID [facility]; Protocol Stop: 11/11/18 13:31 Last Admin: 11/05/18 09:38 Dose: 600 mg Magnesium Oxide (Mag-Ox) 400 mg PO BID [facility] Last Admin: 11/05/18 09:37 Dose: 400 mg Tamsulosin HCl (Flomax) 0.4 mg PO DAILY [facility] Last Admin: 11/05/18 09:40 Dose: 0.4 mg - Labs Labs: 11/04/18 06:55 11/04/18 06:40 PT 14.3 SECONDS (9.4-12.5) H 11/01/18 17:10 INR 1.29 11/01/18 17:10 APTT 40.2 Seconds (26.9-38.3) H 11/01/18 17:10 - Respiratory Exam Respiratory Exam: Rhonchi, NORMAL BREATHING PATTERN - Cardiovascular Exam Cardiovascular Exam: REGULAR RHYTHM - GI/Abdominal Exam GI & Abdominal Exam: Soft, Normal Bowel Sounds - Extremities Exam Extremities Exam: Pedal Edema - Neurological Exam Neurological Exam: Alert, Awake - Skin Skin Exam: Dry, Warm Assessment and Plan (1) CHF (congestive heart failure) Status: Acute (2) Coronary artery disease Status: Chronic (3) Renal tubular acidosis, type IV Status: Chronic (4) Type II diabetes mellitus Status: Chronic (5) Acute urinary retention Status: Acute (6) BPH (benign prostatic hyperplasia) Status: Chronic (7) Leukocytosis, unspecified Status: Acute - Assessment and Plan (Free Text) Plan: continue IV Abx, Lasix IV, on IV milrinone, ID & cardiology follow-up, check labs in am
--- NOTE | 2018-11-05 23:33 | PN ---
DATE: 11/05/2018 SUBJECTIVE: The patient is seen in bed, in no acute distress, nontoxic. PHYSICAL EXAMINATION: VITAL SIGNS: Temperature is 98, blood pressure is 130/50, respiratory rate of 18. HEENT: Unremarkable. NECK: Supple. LUNGS: Have decreased breath sounds. HEART: Normal S1 and S2. ABDOMEN: Soft, nontender. LABORATORY EXAMINATION: Reveals a white count of 24,500, hemoglobin of 11, and platelets of 445. BUN of 47, creatinine of 1.9. Urinalysis is noted. Microbiology reveals Proteus mirabilis. ASSESSMENT AND PLAN: An 87-year-old male who was seen earlier today with congestive heart failure, severe sepsis, left arm cellulitis, healthcare-associated pneumonia, acute kidney injury. He is on Zyvox and meropenem. ALLERGIC TO PENICILLIN. The patient's blood cultures have reported no growth. Urine cultures have Proteus and pansensitive. The patient had an ultrasound of the extremity; the report is not available. The arm is improving. We will follow with you. Procalcitonin of 1.6. On the patient's chest x-ray, infiltrates are seen at the bases. Dr. Mitchell's progress note from today is reviewed. We will follow closely. Should have another complete blood count tomorrow. Juan Francisco Brady MD
[2018-11-06] MEDS: MEROPENEM 500 MG in NS 500 MG/50 ML BAG IVPB SCH ×3 (06:00→21:31)
[2018-11-06 07:39] LABS: BASO # 0.03 K/mm3 (0.0-2.0); BASO % 0.1 % (0.0-3.0); EOS # 0.2 (0.0-0.7); EOS % 0.7 % (1.5-5.0); HEMOGLOBIN 12.5 g/dL (14.0-18.0); LYMPH # 0.6 (1.2-3.4); LYMPH % 2.3 % (22.0-35.0); MEAN CELL VOLUME 57.7 fl (80.0-105.0); MEAN CORPUSCULAR HEMOGLOBIN 16.5 pg (25.0-35.0); MEAN CORPUSCULAR HGB CONC 28.7 g/dl (31.0-37.0); MONO # 0.5 (0.1-0.6); MONO % 1.8 % (1.0-6.0); PLATELET COUNT 485 10^3/uL (120.0-450.0); RBC 7.56 10^6/uL (3.5-6.1)
--- NOTE | 2018-11-06 07:57 | CP.PCM.PN ---
Subjective - Date & Time of Evaluation Date of Evaluation: 11/06/18 Time of Evaluation: 06:45 - Subjective Subjective: Lying in bed, Awake, alert, no distress, feels better Reason for consultation and follow up: Cardiac evaluation of shortness of breath , decompensated congestive heart failure, history of CHF,coronary artery disease with stents, diabetes Seen and examined by me and Dr. Faulkner Objective - Vital Signs/Intake and Output Vital Signs (last 24 hours): Temp Pulse Resp BP Pulse Ox 99.1 F 90 20 158/70 H 95 11/06/18 05:50 11/06/18 05:50 11/06/18 05:50 11/06/18 05:50 11/06/18 05:50 Intake and Output: 11/06/18 11/06/18 06:59 18:59 Intake Total 180 Output Total 1250 Balance -1070 - Medications Medications: Current Medications Aspirin (Ecotrin) 81 mg PO DAILY [facility] Last Admin: 11/05/18 09:37 Dose: 81 mg Clopidogrel Bisulfate (Plavix) 75 mg PO DAILY [facility] Last Admin: 11/05/18 09:37 Dose: 75 mg Enoxaparin Sodium (Lovenox) 30 mg SC DAILY [facility]; Protocol Last Admin: 11/05/18 09:37 Dose: 30 mg Fludrocortisone Acetate (Florinef) 0.1 mg PO QAM [facility] Last Admin: 11/05/18 09:38 Dose: 0.1 mg Furosemide (Lasix) 40 mg IVP Q12 [facility] Last Admin: 11/05/18 22:07 Dose: 40 mg Meropenem/Sodium Chloride (Merrem Iv 500 Mg/Ns 50 Ml) 500 mg in 50 mls @ 100 mls/hr IVPB Q8 [facility]; Protocol Stop: 11/13/18 14:01 Last Admin: 11/06/18 06:00 Dose: 100 mls/hr Insulin Human Regular (Humulin R Low) 0 units SC ACHS [facility]; Protocol Last Admin: 11/05/18 22:30 Dose: Not Given Linezolid (Zyvox) 600 mg PO BID [facility]; Protocol Stop: 11/11/18 13:31 Last Admin: 11/05/18 17:56 Dose: 600 mg Magnesium Oxide (Mag-Ox) 400 mg PO BID [facility] Last Admin: 11/05/18 17:56 Dose: 400 mg Tamsulosin HCl (Flomax) 0.4 mg PO DAILY [facility] Last Admin: 11/05/18 09:40 Dose: 0.4 mg - Labs Labs: 11/04/18 06:55 11/04/18 06:40 PT 14.3 SECONDS (9.4-12.5) H 11/01/18 17:10 INR 1.29 11/01/18 17:10 APTT 40.2 Seconds (26.9-38.3) H 11/01/18 17:10 - Constitutional Appears: Non-toxic, No Acute Distress - Head Exam Head Exam: NORMAL INSPECTION, NORMOCEPHALIC - Eye Exam Eye Exam: Normal appearance Pupil Exam: NORMAL ACCOMODATION - ENT Exam ENT Exam: Mucous Membranes Moist, Normal Exam - Respiratory Exam Respiratory Exam: Decreased Breath Sounds, Clear to Ausculation Bilateral, NOR MAL BREATHING PATTERN - Cardiovascular Exam Cardiovascular Exam: REGULAR RHYTHM, +S1, +S2 - GI/Abdominal Exam GI & Abdominal Exam: Soft, Normal Bowel Sounds - Exam Additional comments: mitchell catheter - Extremities Exam Extremities Exam: Full ROM, Normal Capillary Refill - Neurological Exam Neurological Exam: Alert, Awake, Oriented x3 - Psychiatric Exam Psychiatric exam: Normal Affect, Normal Mood - Skin Skin Exam: Dry, Normal Color, Warm Assessment and Plan - Assessment and Plan (Free Text) Assessment: An 87 year old male who came in to the ER due to shortness of breath and leg swelling. History of systolic dysfunction congestive heart failure, coronary artery disease post PTCA of RCA in 2012 then stent of circumflex in 2017. diabetes, polycythemia vera,chronic renal insufficiency, renal tubular acidosis. While in telemetry, showed Mobitz 1. hyperkalemia, kayexalate given.Echo done yesterday and showed LVEF 40-45%, systolic function mildly impaired, moderate to severe mitral regurgitation, moderate tricuspid regurgitation, RVSP 59mmHg, moderate to severe pulmonary hypertension. Continue to diurese. Continue Primacor for today. Denies shortness of breath. Feels okay. Will follow up Holter monitor results/reading.,Preliminary result showed NSR, lowest heart rate 38/min, highest 114/min. No need for PPM. Leukocytosis, urine culture positive for Proteus mirabilis. ID on consult. Continue IV antibiotics as ordered. Plan: Feels okay today Denies shortness of breath Heart rate stable Blood pressure stable Primacor drip completed Continue to Lasix to diurese On ASA 81 mg daily,Plavix 75 mg daily,Lovenox 30 mg daily, Lasix 40 mg BID, Flomax 0.4 mg daily. Continue current treatment Continue current medications Continue IV antibiotics per ID Elevate leg and arm-swelling better/improved Ultrasound of left arm done pending result Will follow up Plan and treatment discussed with Dr. Faulkner
[2018-11-06 08:22] LABS: WHITE BLOOD COUNT 27.3 10^3/uL (4.5-11.0)
[2018-11-06 08:35] LABS: ALBUMIN 2.5 g/dL (3.0-4.8); CALCIUM 7.6 mg/dL (8.4-10.5)
[2018-11-06] MEDS: Insulin Reg-LOW-Coverage SC SCH ×4 (08:51→22:30)
[2018-11-06] MEDS: Enoxaparin 30 mg Syringe SC SCH (09:59)
[2018-11-06] MEDS: Magnesium Oxide 400 mg Tab UD PO SCH ×2 (10:00→17:32)
[2018-11-06] MEDS ORDERED: Potassium Chloride 20 mEq ER Tab PO ONE ×2 (10:54→16:00)
--- NOTE | 2018-11-06 13:19 | CP.PCM.PN ---
Subjective - Date & Time of Evaluation Date of Evaluation: 11/06/18 Time of Evaluation: 13:00 - Subjective Subjective: resting comfortably, NAD, denies chest pain, no SOB Objective - Vital Signs/Intake and Output Vital Signs (last 24 hours): Temp Pulse Resp BP Pulse Ox 97.9 F 89 19 151/70 H 95 11/06/18 12:00 11/06/18 12:00 11/06/18 12:00 11/06/18 12:00 11/06/18 05:50 Intake and Output: 11/06/18 11/06/18 06:59 18:59 Intake Total 180 Output Total 1250 Balance -1070 - Medications Medications: Current Medications Acetaminophen (Tylenol 325mg Tab) 650 mg PO Q6H PRN PRN Reason: Pain, Mild (1-3) Last Admin: 11/06/18 11:16 Dose: 650 mg Aspirin (Ecotrin) 81 mg PO DAILY [facility] Last Admin: 11/06/18 10:00 Dose: 81 mg Clopidogrel Bisulfate (Plavix) 75 mg PO DAILY [facility] Last Admin: 11/06/18 10:00 Dose: 75 mg Enoxaparin Sodium (Lovenox) 30 mg SC DAILY [facility]; Protocol Last Admin: 11/06/18 09:59 Dose: 30 mg Fludrocortisone Acetate (Florinef) 0.1 mg PO QAM [facility] Last Admin: 11/06/18 10:00 Dose: 0.1 mg Furosemide (Lasix) 40 mg IVP Q12 [facility] Last Admin: 11/06/18 09:59 Dose: 40 mg Meropenem/Sodium Chloride (Merrem Iv 500 Mg/Ns 50 Ml) 500 mg in 50 mls @ 100 mls/hr IVPB Q8 [facility]; Protocol Stop: 11/13/18 14:01 Last Admin: 11/06/18 06:00 Dose: 100 mls/hr Insulin Human Regular (Humulin R Low) 0 units SC ACHS [facility]; Protocol Last Admin: 11/06/18 11:53 Dose: 1 units Linezolid (Zyvox) 600 mg PO BID [facility]; Protocol Stop: 11/11/18 13:31 Last Admin: 11/06/18 10:00 Dose: 600 mg Magnesium Oxide (Mag-Ox) 400 mg PO BID [facility] Last Admin: 11/06/18 10:00 Dose: 400 mg Potassium Chloride (K-Dur 20 Meq Er Tab) 20 meq PO ONCE ONE Stop: 11/06/18 16:01 Potassium Chloride (K-Dur 20 Meq Er Tab) 20 meq PO BRK [facility] Tamsulosin HCl (Flomax) 0.4 mg PO DAILY [facility] Last Admin: 11/06/18 10:00 Dose: 0.4 mg - Labs Labs: 11/06/18 07:00 11/06/18 07:00 PT 14.3 SECONDS (9.4-12.5) H 11/01/18 17:10 INR 1.29 11/01/18 17:10 APTT 40.2 Seconds (26.9-38.3) H 11/01/18 17:10 - Respiratory Exam Respiratory Exam: Rales - Cardiovascular Exam Cardiovascular Exam: REGULAR RHYTHM - GI/Abdominal Exam GI & Abdominal Exam: Soft, Normal Bowel Sounds - Extremities Exam Extremities Exam: Pedal Edema - Neurological Exam Neurological Exam: Alert, Awake - Skin Skin Exam: Dry, Warm Assessment and Plan (1) CHF (congestive heart failure) Status: Acute (2) Coronary artery disease Status: Chronic (3) Renal tubular acidosis, type IV Status: Chronic (4) Type II diabetes mellitus Status: Chronic (5) Acute urinary retention Status: Acute (6) BPH (benign prostatic hyperplasia) Status: Chronic (7) Leukocytosis, unspecified Status: Acute (8) Hypertension Status: Acute - Assessment and Plan (Free Text) Plan: WBC remian elevated on Zyvox & Meropenem, continue present tx, IV Lasix, K+ supplements ordered, monitor lytes, add Losartan 50mg qd for elevated bp
--- NOTE | 2018-11-06 15:28 | CT ---
Date of service: 11/06/2018 PROCEDURE: Left upper extremity CT scan HISTORY: s/p injury COMPARISON: None TECHNIQUE: 2.5 mm axial acquisition and display. Coronal and sagittal reconstructions. Dose report (mGy-cm): 1102.43 FINDINGS: No significant osseous, articular or soft tissue abnormalities. Preserved glenohumeral relationship. Negative study for visualized clavicular, scapular, humeral fracture. No abnormalities visualized thorax including limited assessment of ribs and pulmonary parenchyma Degenerative changes-glenohumeral and acromioclavicular joints. No abnormalities related to the elbow, humerus, forearm. Soft tissue swelling/left upper extremity edema. Incidental finding(s): Diffuse edema/anasarca visualized thorax and abdomen. Incompletely visualized left pleural effusion and consolidative changes left lower lobe. IMPRESSION: Left upper extremity edema. Left chest and abdominal wall edema/anasarca. Small left pleural effusion. No acute findings related to/ accounting for the clinical presentation.
[2018-11-06] MEDS ORDERED: Barium Sulfate Susp 2.1% w/v, 2.0% w/w 450 mL Bottle PO ONE (15:59)
--- NOTE | 2018-11-06 21:13 | PN ---
DATE: 11/06/2018 SUBJECTIVE: The patient is in bed, in no acute distress, nontoxic. No fevers, no chills. PHYSICAL EXAMINATION: VITAL SIGNS: Temperature is 97, blood pressure is 150/70, respiratory rate of 18. HEENT: Unremarkable. NECK: Supple. LUNGS: Decreased breath sounds. Heart: Normal S1, S2. ABDOMEN: Soft. LABORATORY DATA: Laboratory examination reveals a white count of 27,000 and hemoglobin of 12. BUN of 62, creatinine of 1.8. Urinalysis is noted. Microbiology reveals Proteus mirabilis in the urine is pansensitive. Blood cultures are negative. Review of orders reveals the patient to be on meropenem and Zyvox. The patient had a CAT scan of the upper extremity. Examination of the extremity does not explain upper extremity sloughing of skin, however, it is not tense and appears to be improving. Dr. Mitchell's assessment is noted. ASSESSMENT AND PLAN: This is an 87-year-old man was seen earlier was admitted with congestive heart failure, severe sepsis, left arm cellulitis, healthcare-associated pneumonia, acute kidney injury on Zyvox and meropenem. Allergic to penicillin with pansensitive Proteus in the urine. We will order a CAT scan of the abdomen and pelvis to rule out GI versus . The patient's renal function is noted. Creatinine of 1.8. Juan Francisco Brady MD
[2018-11-07] MEDS: MEROPENEM 500 MG in NS 500 MG/50 ML BAG IVPB SCH ×3 (06:17→21:14)
--- NOTE | 2018-11-07 07:43 | CP.PCM.PN ---
Subjective - Date & Time of Evaluation Date of Evaluation: 11/07/18 Time of Evaluation: 07:30 - Subjective Subjective: NAD, denies chest pain, no SOB Objective - Vital Signs/Intake and Output Vital Signs (last 24 hours): Temp Pulse Resp BP Pulse Ox 98.0 F 92 H 20 159/78 H 95 11/07/18 06:00 11/07/18 06:00 11/07/18 06:00 11/07/18 06:00 11/07/18 06:00 Intake and Output: 11/07/18 11/07/18 06:59 18:59 Intake Total 120 Output Total 1250 Balance -1130 - Medications Medications: Current Medications Acetaminophen (Tylenol 325mg Tab) 650 mg PO Q6H PRN PRN Reason: Pain, Mild (1-3) Last Admin: 11/06/18 11:16 Dose: 650 mg Aspirin (Ecotrin) 81 mg PO DAILY [facility] Last Admin: 11/06/18 10:00 Dose: 81 mg Clopidogrel Bisulfate (Plavix) 75 mg PO DAILY [facility] Last Admin: 11/06/18 10:00 Dose: 75 mg Enoxaparin Sodium (Lovenox) 30 mg SC DAILY [facility]; Protocol Last Admin: 11/06/18 09:59 Dose: 30 mg Fludrocortisone Acetate (Florinef) 0.1 mg PO QAM [facility] Last Admin: 11/06/18 10:00 Dose: 0.1 mg Furosemide (Lasix) 40 mg IVP Q12 [facility] Last Admin: 11/06/18 21:32 Dose: 40 mg Meropenem/Sodium Chloride (Merrem Iv 500 Mg/Ns 50 Ml) 500 mg in 50 mls @ 100 mls/hr IVPB Q8 [facility]; Protocol Stop: 11/13/18 14:01 Last Admin: 11/07/18 06:17 Dose: 100 mls/hr Insulin Human Regular (Humulin R Low) 0 units SC ACHS [facility]; Protocol Last Admin: 11/06/18 22:30 Dose: Not Given Linezolid (Zyvox) 600 mg PO BID [facility]; Protocol Stop: 11/11/18 13:31 Last Admin: 11/06/18 17:32 Dose: 600 mg Losartan Potassium (Cozaar) 25 mg PO DAILY [facility] Last Admin: 11/06/18 13:27 Dose: 25 mg Magnesium Oxide (Mag-Ox) 400 mg PO BID [facility] Last Admin: 11/06/18 17:32 Dose: 400 mg Potassium Chloride (K-Dur 20 Meq Er Tab) 20 meq PO BRK [facility] Tamsulosin HCl (Flomax) 0.4 mg PO DAILY [facility] Last Admin: 11/06/18 10:00 Dose: 0.4 mg - Labs Labs: 11/06/18 07:00 11/06/18 07:00 PT 14.3 SECONDS (9.4-12.5) H 11/01/18 17:10 INR 1.29 11/01/18 17:10 APTT 40.2 Seconds (26.9-38.3) H 11/01/18 17:10 - Respiratory Exam Respiratory Exam: Clear to Ausculation Bilateral, NORMAL BREATHING PATTERN - Cardiovascular Exam Cardiovascular Exam: REGULAR RHYTHM - GI/Abdominal Exam GI & Abdominal Exam: Soft, Normal Bowel Sounds - Extremities Exam Extremities Exam: Pedal Edema - Neurological Exam Neurological Exam: Alert, Awake - Skin Additional comments: left arm with some erythema and desquamation Assessment and Plan (1) CHF (congestive heart failure) Status: Acute (2) Coronary artery disease Status: Chronic (3) Renal tubular acidosis, type IV Status: Chronic (4) Type II diabetes mellitus Status: Chronic (5) Acute urinary retention Status: Acute (6) BPH (benign prostatic hyperplasia) Status: Chronic (7) Leukocytosis, unspecified Status: Acute (8) Hypertension Status: Acute - Assessment and Plan (Free Text) Plan: labs pending, continue IV Abx, ID follow-up
[2018-11-07 07:47] LABS: BASO # 0.03 K/mm3 (0.0-2.0); BASO % 0.1 % (0.0-3.0); EOS # 0.3 (0.0-0.7); EOS % 1.3 % (1.5-5.0); HEMOGLOBIN 13.2 g/dL (14.0-18.0); LYMPH # 0.8 (1.2-3.4); LYMPH % 3.8 % (22.0-35.0); MEAN CELL VOLUME 58.2 fl (80.0-105.0); MEAN CORPUSCULAR HEMOGLOBIN 16.7 pg (25.0-35.0); MEAN CORPUSCULAR HGB CONC 28.6 g/dl (31.0-37.0); MONO # 0.4 (0.1-0.6); PLATELET COUNT 438 10^3/uL (120.0-450.0); RBC 7.92 10^6/uL (3.5-6.1); RED CELL DISTRIBUTION WIDTH 22.3 % (11.5-14.5); WHITE BLOOD COUNT 21.2 10^3/uL (4.5-11.0)
[2018-11-07 08:01] LABS: ALBUMIN 2.5 g/dL (3.0-4.8); CALCIUM 7.6 mg/dL (8.4-10.5)
[2018-11-07 08:17] LABS: ANISOCYTOSIS 1+; LYMPHOCYTE 4 % (22.0-35.0); NEUTROPHIL 96 % (50.0-70.0); POIKILOCYTOSIS 2+
[2018-11-07 08:18] LABS: HYPOCHROMIA 1+; LARGE PLATELETS PRESENT; MICROCYTOSIS 2+; OVALOCYTES 1+; PLATELET ESTIMATE NORMAL (NORMAL)
[2018-11-07] MEDS: Potassium Chloride 20 mEq ER Tab PO SCH (08:40)
[2018-11-07] MEDS: Insulin Reg-LOW-Coverage SC SCH ×4 (08:40→22:05)
--- NOTE | 2018-11-07 09:27 | US ---
PROCEDURE: Left upper extremity venous ultrasound HISTORY: Arm pain and swelling. Evaluate for deep venous thrombosis. PHYSICIAN(S): Chadd Puentes MD. FINDINGS: The visualized leftinternal jugular vein is sonographically normal and compressible. No evidence of obstruction or thrombus is seen. The visualized segments of the left subclavian vein are patent with normal waveforms. No sonographic evidence of obstruction or thrombosis is seen. The visualized deep venous system of the proximal leftupper extremity is sonographically normal and compressible. IMPRESSION: 1. No sonographic evidence for deep venous thrombosis in the visualized segments of the left upper extremity.
[2018-11-07] MEDS: Enoxaparin 30 mg Syringe SC SCH (09:44)
[2018-11-07] MEDS: Magnesium Oxide 400 mg Tab UD PO SCH ×2 (09:45→18:02)
--- NOTE | 2018-11-07 11:21 | CT ---
Date of service: 11/06/2018 PROCEDURE: CT Abdomen and Pelvis without intravenous contrast HISTORY: wbc elevated COMPARISON: None. TECHNIQUE: Without contrast.. Contrast dose: Radiation dose: Total exam DLP = 801.6 mGy-cm. This CT exam was performed using one or more of the following dose reduction techniques: Automated exposure control, adjustment of the mA and/or kV according to patient size, and/or use of iterative reconstruction technique. FINDINGS: LOWER THORAX: Moderate size bilateral pleural effusions and bibasilar atelectasis LIVER: Unremarkable. No gross lesion or ductal dilatation. GALLBLADDER AND BILE DUCTS: Unremarkable. PANCREAS: Unremarkable. No gross lesion or ductal dilatation. SPLEEN: Unremarkable. ADRENALS: Unremarkable. No mass. KIDNEYS AND URETERS: Unremarkable. No hydronephrosis. No solid mass. VASCULATURE: Unremarkable. No aortic aneurysm. Aortic calcification BOWEL: Unremarkable. No obstruction. No gross mural thickening. Constipation APPENDIX: Unremarkable. Normal appendix. PERITONEUM: Unremarkable. No free fluid. No free air. Diffuse subcutaneous edema LYMPH NODES: Unremarkable. No enlarged lymph nodes. BLADDER: There thickening of the bladder wall. There is a Chapa catheter in place. REPRODUCTIVE: The prostate is enlarged measuring 60 x 70 by 68 mm BONES: No acute fracture. Mild disc bulge at L5-S1 OTHER FINDINGS: The report concurs with the preliminary [facility] report IMPRESSION: Thickening of the bladder wall. Possible chronic cystitis. Enlarged prostate
--- NOTE | 2018-11-07 12:41 | CP.PCM.PCO ---
Physician Communication Note - Physician Communication Note Physician Communication Note: cont. antibiotics as per ID, repeat labs in am, surgery consulted wound
--- NOTE | 2018-11-07 13:52 | CP.PCM.CON ---
History of Present Illness - History of Present Illness History of Present Illness: PGY1 General Surgery Consult Note for Dr. Melissa Reason for Consult: left arm cellulitis Patient is a Taiwanese speaking 87-year-old M with PMH of CHF and DM who presents to [facility] for dysuria and testicular pain that began about 1 month ago. Patient recently traveled to [facility] this past October and he states that he climbed a mountain on a hot day. Patient admits to walking through some water, and then shortly afterwards he began experiencing testicular pain. Patient came to the hospital immediately after landing in the . Patient was found to have UTI positive for proteus and is currently being treated with zyvox IV and meropenem IV antibiotics. Of note, Patient noticed erythema on his left arm on November 03. Patient states that it began to slough off. Patient otherwise denies fever, chills, arm pain, chest pain, shortness of breath, numbness/tingling in upper and/or lower extremities, and/or headache. PMH: CHF, DM PSH: Denies Allergies: PCN Social Hx: Denies drugs, tobacco, alcohol Meds: Metformin, Tamsulosin (home meds); see MAR Review of Systems - Review of Systems All systems: reviewed and no additional remarkable complaints except (as per HPI) Past Patient History - Infectious Disease Hx of Infectious Diseases: None - Past Social History Smoking Status: Never Smoked - CARDIAC Hx Peripheral Vascular Disease: Yes - PULMONARY Hx Respiratory Disorders: Yes (2ND HAND SMOKE) - NEUROLOGICAL Hx Neurological Disorder: Yes (NEUROPATHY) - HEENT Hx HEENT Problems: Yes Hx Cataracts: Yes (bilateral 1 1/2 yrs ago) Other/Comment: wears eyeglasses - ENDOCRINE/METABOLIC Hx Diabetes Mellitus Type 2: Yes - HEMATOLOGICAL/ONCOLOGICAL Hx Blood Disorders: Yes Hx Anemia: Yes Other/Comment: jehovah witness no blood transfusions - INTEGUMENTARY Hx Dermatological Problems: Yes Other/Comment: redness to lle,BILATERAL LE EDEMA PITTING +2 - MUSCULOSKELETAL/RHEUMATOLOGICAL Hx Falls: Yes (Fell 3 weeks ago) - GASTROINTESTINAL Hx Gastrointestinal Disorders: Yes Hx Gastroesophageal Reflux: Yes - GENITOURINARY/GYNECOLOGICAL Hx Genitourinary Disorders: Yes Hx Prostate Problems: Yes (enlarged takees flomax) - PSYCHIATRIC Hx Emotional Abuse: No Hx Physical Abuse: No - SURGICAL HISTORY Hx Surgeries: Yes (CATARACT SURGERY,LASER EYES) Hx Cardiac Catheterization: Yes (stent x1) - ANESTHESIA Hx Anesthesia Reactions: No Hx Malignant Hyperthermia: No Meds Allergies/Adverse Reactions: Allergies Allergy/AdvReac Type Severity Reaction Status Date / Time Penicillins Allergy RASH Verified 02/04/18 09:31 - Medications Medications: Current Medications Acetaminophen (Tylenol 325mg Tab) 650 mg PO Q6H PRN PRN Reason: Pain, Mild (1-3) Last Admin: 11/07/18 08:40 Dose: 650 mg Aspirin (Ecotrin) 81 mg PO DAILY [facility] Last Admin: 11/07/18 09:45 Dose: 81 mg Clopidogrel Bisulfate (Plavix) 75 mg PO DAILY [facility] Last Admin: 11/07/18 09:45 Dose: 75 mg Enoxaparin Sodium (Lovenox) 30 mg SC DAILY [facility]; Protocol Last Admin: 11/07/18 09:44 Dose: 30 mg Fludrocortisone Acetate (Florinef) 0.1 mg PO QAM [facility] Last Admin: 11/07/18 09:45 Dose: 0.1 mg Furosemide (Lasix) 40 mg IVP Q12 [facility] Last Admin: 11/07/18 09:44 Dose: 40 mg Meropenem/Sodium Chloride (Merrem Iv 500 Mg/Ns 50 Ml) 500 mg in 50 mls @ 100 mls/hr IVPB Q8 [facility]; Protocol Stop: 11/13/18 14:01 Last Admin: 11/07/18 13:32 Dose: 100 mls/hr Insulin Human Regular (Humulin R Low) 0 units SC ACHS [facility]; Protocol Last Admin: 11/07/18 12:35 Dose: 2 units Linezolid (Zyvox) 600 mg PO BID [facility]; Protocol Stop: 11/11/18 13:31 Last Admin: 11/07/18 09:45 Dose: 600 mg Losartan Potassium (Cozaar) 25 mg PO DAILY [facility] Last Admin: 11/07/18 09:44 Dose: 25 mg Magnesium Oxide (Mag-Ox) 400 mg PO BID [facility] Last Admin: 11/07/18 09:45 Dose: 400 mg Potassium Chloride (K-Dur 20 Meq Er Tab) 20 meq PO BRK [facility] Last Admin: 11/07/18 08:40 Dose: 20 meq Tamsulosin HCl (Flomax) 0.4 mg PO DAILY [facility] Last Admin: 11/07/18 09:45 Dose: 0.4 mg Physical Exam - Constitutional Appears: Non-toxic, No Acute Distress - Head Exam Head Exam: ATRAUMATIC, NORMAL INSPECTION, NORMOCEPHALIC - Eye Exam Eye Exam: EOMI, Normal appearance, PERRL Pupil Exam: NORMAL ACCOMODATION - ENT Exam ENT Exam: Mucous Membranes Moist, Normal Exam - Neck Exam Neck exam: Positive for: Normal Inspection - Respiratory Exam Respiratory Exam: Clear to Auscultation Bilateral, NORMAL BREATHING PATTERN - Cardiovascular Exam Cardiovascular Exam: REGULAR RHYTHM, +S1, +S2 - GI/Abdominal Exam GI & Abdominal Exam: Normal Bowel Sounds, Soft (Upper Extremity Exam (LEFT)) - Extremities Exam Additional comments: Upper Extremity Exam (LEFT) + pulses intact no tenderness to palpation + sloughing of skin on arm, elbow + serous oozing no bullae + motor strength in tact + gross sensation in tact Results - Vital Signs Recent Vital Signs: Last Vital Signs Temp 97.7 F 11/07/18 12:00 Pulse 83 11/07/18 12:00 Resp 18 11/07/18 12:00 BP 138/65 11/07/18 12:00 Pulse Ox 95 11/07/18 06:00 - Labs Result Diagrams: 11/07/18 07:00 11/07/18 07:00 Labs: Laboratory Results - last 24 hr 11/06/18 11/06/18 11/07/18 16:06 21:09 07:00 WBC 21.2 H D RBC 7.92 H Hgb 13.2 L Hct 46.1 MCV 58.2 L MCH 16.7 L MCHC 28.6 L RDW 22.3 H Plt Count 438 Neut % (Auto) 92.8 H Lymph % (Auto) 3.8 L [place] % (Auto) 2.0 Eos % (Auto) 1.3 L Baso % (Auto) 0.1 Lymph # (Auto) 0.8 L [place] # (Auto) 0.4 Eos # (Auto) 0.3 Baso # (Auto) 0.03 Absolute Neuts (auto) 19.69 H Neutrophils % (Manual) 96 H Lymphocytes % (Manual) 4 L Monocytes % (Manual) TEST NOT PERFORMED Platelet Evaluation Normal Large Platelets Present Hypochromasia 1+ Poikilocytosis (manual 2+ Anisocytosis (manual) 1+ Microcytosis (manual) 2+ Ovalocytes 1+ Sodium Potassium Chloride Carbon Dioxide Anion Gap BUN Creatinine Est GFR ( Amer) Est GFR (Non-Af Amer) POC Glucose (mg/dL) 160 H 143 H Random Glucose Calcium Phosphorus Magnesium Total Bilirubin AST ALT Alkaline Phosphatase Total Protein Albumin Globulin Albumin/Globulin Ratio 11/07/18 11/07/18 11/07/18 07:00 07:53 11:45 WBC RBC Hgb Hct MCV MCH MCHC RDW Plt Count Neut % (Auto) Lymph % (Auto) [place] % (Auto) Eos % (Auto) Baso % (Auto) Lymph # (Auto) [place] # (Auto) Eos # (Auto) Baso # (Auto) Absolute Neuts (auto) Neutrophils % (Manual) Lymphocytes % (Manual) Monocytes % (Manual) Platelet Evaluation Large Platelets Hypochromasia Poikilocytosis (manual Anisocytosis (manual) Microcytosis (manual) Ovalocytes Sodium 133 Potassium 3.3 L Chloride 98 Carbon Dioxide 24 Anion Gap 14 BUN 65 H Creatinine 1.7 H Est GFR ( Amer) 46 Est GFR (Non-Af Amer) 38 POC Glucose (mg/dL) 184 H 204 H Random Glucose 169 H Calcium 7.6 L Phosphorus 3.2 Magnesium 1.9 Total Bilirubin 1.3 AST 35 ALT 44 Alkaline Phosphatase 259 H D Total Protein 5.0 L Albumin 2.5 L Globulin 2.5 Albumin/Globulin Ratio 1.0 L Assessment & Plan - Assessment and Plan (Free Text) Assessment: Patient is an 87-year-old M with PMH of CHF and DM who presents to [facility] for dysuria and testicular pain and was later found to have left upper extremity cellulitis; currently on IV antibiotics (zyvox, merrem) Plan: warm compresses continue IV ABX gently/lightly wrap d/w Dr. Shin Farmer PGY1
[2018-11-07] MEDS ORDERED: Potassium Chloride 20 mEq ER Tab PO ONE (15:00)
--- NOTE | 2018-11-07 17:06 | CARD ---
APPROVED REPORT Date of service: 11/04/2018 Reason for Test: high grade av block Hookup date: 2018-11-02 Removal date: 2018-11-03 Scan date: 2018-11-04 Recording time: 23hr 59min Heart Rate Data Total Beats: [id number] Min HR: 38 BPM at 2:03pm Avg HR: 88 BPM Max HR: 114 BPM at 11:36pm Ventricular Ectopy Total VE Beats: 578 (%) Couplets: 5 Events Single/Interp PVC: 568/ Conclusion THE RHYTHM WAS NSR WITH INFREQUENT SHORT R-R BEATS ALL UNDER 1.9 SECONDS. THE MINIMUM HEART RATE WAS 38 BPM. THE MAXIMUM HEART RATE WAS 114 BPM AND THE AVERAGE HEART RATE WAS 88 BPM. THERE WERE NO APC's PRESENT. THERE WERE INFREQUENT VPC's WITH 5 COUPLETS PRESENT.
[2018-11-07] MEDS: Mupirocin 2% Ointment 15 GM TUBE TOP SCH (18:03)
--- NOTE | 2018-11-07 19:37 | PN ---
DATE: 11/07/2018 REASON FOR CONSULTATION AND FOLLOWUP: Acute decompensated congestive heart failure, acute on chronic kidney disease, systolic dysfunction, cardiac evaluation and followup. SUBJECTIVE: The patient denies any chest pain, shortness of breath, or any palpitation. He complained of pain in left arm, skin peel around elbow at the junction of arm and forearm. Denies any chest pain. Denies any shortness of breath. Denies any palpitation. PHYSICAL EXAMINATION: VITAL SIGNS: Temperature afebrile, heart rate 83 and blood pressure 138/65. HEENT: PERRLA. Extraocular muscles intact. NECK: Supple. No carotid bruits. No thyromegaly. CHEST: Clear to auscultation. HEART: S1 and S2, regular. ABDOMEN: Soft. EXTREMITIES: Clubbing and cyanosis are negative. LABORATORY DATA: Blood workup as follows: WBC 21.2, hemoglobin 13.2, hematocrit 46.1, platelet count 438. Chemistry shows sodium 132, potassium 3.3, chloride , carbon dioxide 24, anion gap of 14, BUN 65, creatinine 1.7. IMPRESSION: An 87-year-old male with past medical history of coronary artery disease, status post percutaneous transluminal coronary angioplasty of right coronary artery in 2019 and stent in 2017, diabetes, hypertension, hyperlipidemia, polycythemia vera, history of chronic renal insufficiency, renal tubular acidosis, very briefly Mobitz type 1, hyperkalemia. The patient initially admitted with acute decompensated congestive heart failure, treated with IV Primacor, now the patient is stable. Preliminary Holter result shows lowest heart 38 with normal sinus. No need for pacemaker. RECOMMENDATIONS: Continue broad-spectrum antibiotics. Continue losartan 25. Monitor renal function. Continue aspirin. Continue Florinef for orthostatic hypotension. Continue Lasix. We will change to p.o. Continue enoxaparin. We will follow with you. Thank you Dr. Mitchell for providing us the opportunity in taking care of the patient, Monico Delgado. Swetha Jimenez MD
--- NOTE | 2018-11-08 00:56 | PN ---
DATE: 11/07/2018 SUBJECTIVE: The patient is seen earlier today, in no acute distress, in room 277, bed 2. No fevers and chills. PHYSICAL EXAMINATION: VITAL SIGNS: The patient's temperature is 98, blood pressure is 140/60, and respiratory rate of 18. HEENT: Unremarkable. NECK: Supple. LUNGS: Have decreased breath sounds. HEART: Normal S1 and S2. ABDOMEN: Soft. LABORATORY DATA: Laboratory examination reveals the patient's white count of 21,000, hemoglobin of 13, and platelets of 438. Differential was noted. BUN of 65 and creatinine of 1.7. Alk phos is 459. Urinalysis is noted. Microbiology reveals Proteus in the urine, relatively sensitive and blood cultures are negative. The patient is on meropenem and Zyvox. The patient had a CAT scan of the abdomen and pelvis, possible cystitis and enlarged prostate. CAT scan of the upper extremity, no acute findings. Dr. Mitchell's progress note is reviewed. ASSESSMENT AND PLAN: This is an 87-year-old male who was seen earlier today, nontoxic, comfortable with significant leukocytosis with mean corpuscular volume of 58. This 87-year-old man was seen earlier today with congestive heart failure, severe sepsis, left arm cellulitis, healthcare-associated pneumonia, acute kidney injury, allergic to penicillin, and pansensitive Proteus in the urine, CAT scan negative. Etiology of the persistent leukocytosis is unclear. The patient does have 96% neutrophils. We will follow with you. Juan Francisco Brady MD
[2018-11-08] MEDS: MEROPENEM 500 MG in NS 500 MG/50 ML BAG IVPB SCH ×3 (05:06→21:56)
--- NOTE | 2018-11-08 07:25 | CP.PCM.PN ---
Subjective - Date & Time of Evaluation Date of Evaluation: 11/08/18 Time of Evaluation: 07:10 - Subjective Subjective: c/o some discomfort L arm, dressing clean and intact, denies chest pain, no SOB Objective - Vital Signs/Intake and Output Vital Signs (last 24 hours): Temp Pulse Resp BP Pulse Ox 97.6 F 83 20 151/68 H 96 11/08/18 06:00 11/08/18 06:00 11/08/18 06:00 11/08/18 06:00 11/08/18 06:00 Intake and Output: 11/08/18 11/08/18 06:59 18:59 Intake Total 220 Output Total 700 Balance -480 - Medications Medications: Current Medications Acetaminophen (Tylenol 325mg Tab) 650 mg PO Q6H PRN PRN Reason: Pain, Mild (1-3) Last Admin: 11/07/18 18:17 Dose: 650 mg Aspirin (Ecotrin) 81 mg PO DAILY [facility] Last Admin: 11/07/18 09:45 Dose: 81 mg Clopidogrel Bisulfate (Plavix) 75 mg PO DAILY [facility] Last Admin: 11/07/18 09:45 Dose: 75 mg Enoxaparin Sodium (Lovenox) 30 mg SC DAILY [facility]; Protocol Last Admin: 11/07/18 09:44 Dose: 30 mg Fludrocortisone Acetate (Florinef) 0.1 mg PO QAM [facility] Last Admin: 11/07/18 09:45 Dose: 0.1 mg Furosemide (Lasix) 40 mg PO 0800,1400 [facility] Last Admin: 11/07/18 18:02 Dose: 40 mg Meropenem/Sodium Chloride (Merrem Iv 500 Mg/Ns 50 Ml) 500 mg in 50 mls @ 100 mls/hr IVPB Q8 [facility]; Protocol Stop: 11/13/18 14:01 Last Admin: 11/08/18 05:06 Dose: 100 mls/hr Insulin Human Regular (Humulin R Low) 0 units SC ACHS [facility]; Protocol Last Admin: 11/07/18 22:05 Dose: Not Given Linezolid (Zyvox) 600 mg PO BID [facility]; Protocol Stop: 11/11/18 13:31 Last Admin: 11/07/18 18:02 Dose: 600 mg Losartan Potassium (Cozaar) 25 mg PO DAILY [facility] Last Admin: 11/07/18 09:44 Dose: 25 mg Magnesium Oxide (Mag-Ox) 400 mg PO BID [facility] Last Admin: 11/07/18 18:02 Dose: 400 mg Mupirocin (Bactroban Ointment) 0 gm TOP BID [facility] Last Admin: 11/07/18 18:03 Dose: 1 appful Potassium Chloride (K-Dur 20 Meq Er Tab) 20 meq PO BRK [facility] Last Admin: 11/07/18 08:40 Dose: 20 meq Tamsulosin HCl (Flomax) 0.4 mg PO DAILY [facility] Last Admin: 11/07/18 09:45 Dose: 0.4 mg - Labs Labs: 11/07/18 07:00 11/07/18 07:00 PT 14.3 SECONDS (9.4-12.5) H 11/01/18 17:10 INR 1.29 11/01/18 17:10 APTT 40.2 Seconds (26.9-38.3) H 11/01/18 17:10 - Respiratory Exam Respiratory Exam: Clear to Ausculation Bilateral, NORMAL BREATHING PATTERN - Cardiovascular Exam Cardiovascular Exam: REGULAR RHYTHM - GI/Abdominal Exam GI & Abdominal Exam: Soft, Normal Bowel Sounds - Extremities Exam Extremities Exam: Pedal Edema - Neurological Exam Neurological Exam: Alert, Awake Assessment and Plan (1) CHF (congestive heart failure) Status: Acute (2) Coronary artery disease Status: Chronic (3) Renal tubular acidosis, type IV Status: Chronic (4) Type II diabetes mellitus Status: Chronic (5) Acute urinary retention Status: Acute (6) BPH (benign prostatic hyperplasia) Status: Chronic (7) Leukocytosis, unspecified Status: Acute (8) Hypertension Status: Acute - Assessment and Plan (Free Text) Plan: labs pending, continue Zyvox/Meropenem, voiding trial, DC mitchell, continue ID/cardio follow-up
[2018-11-08 08:20] LABS: BASO # 0.03 K/mm3 (0.0-2.0); BASO % 0.2 % (0.0-3.0); EOS # 0.6 (0.0-0.7); EOS % 3.7 % (1.5-5.0); HEMOGLOBIN 13.1 g/dL (14.0-18.0); LYMPH # 0.8 (1.2-3.4); MEAN CORPUSCULAR HEMOGLOBIN 16.6 pg (25.0-35.0); MEAN CORPUSCULAR HGB CONC 28.2 g/dl (31.0-37.0); MONO # 0.3 (0.1-0.6); MONO % 2.2 % (1.0-6.0); PLATELET COUNT 484 10^3/uL (120.0-450.0); RBC 7.88 10^6/uL (3.5-6.1); RED CELL DISTRIBUTION WIDTH 22.7 % (11.5-14.5); WHITE BLOOD COUNT 15.3 10^3/uL (4.5-11.0)
[2018-11-08] MEDS: Potassium Chloride 20 mEq ER Tab PO SCH (08:28)
[2018-11-08] MEDS: Insulin Reg-LOW-Coverage SC SCH ×3 (08:28→17:01)
[2018-11-08 08:29] LABS: ALBUMIN 2.4 g/dL (3.0-4.8); CALCIUM 7.6 mg/dL (8.4-10.5)
--- NOTE | 2018-11-08 08:40 | CP.PCM.PN ---
<Chio Farmer - Last Filed: 11/08/18 13:14> Subjective - Date & Time of Evaluation Date of Evaluation: 11/08/18 Time of Evaluation: 08:40 - Subjective Subjective: PGY1 General Surgery Progress Note for Dr. Melissa Patient seen and evaluated at bedside this morning. No acute events overnight. Patient's family at bedside. Patient's dressing changed during evaluation. Patient denies any new complaints. Patient denies fever, chills, nausea, vomiting, abdominal pain, numbness/tingling, and/or loss of sensation. Objective - Vital Signs/Intake and Output Vital Signs (last 24 hours): Temp Pulse Resp BP Pulse Ox 97.6 F 83 20 151/68 H 96 11/08/18 06:00 11/08/18 06:00 11/08/18 06:00 11/08/18 08:28 11/08/18 06:00 Intake and Output: 11/08/18 11/08/18 06:59 18:59 Intake Total 220 Output Total 700 Balance -480 - Medications Medications: Current Medications Acetaminophen (Tylenol 325mg Tab) 650 mg PO Q6H PRN PRN Reason: Pain, Mild (1-3) Last Admin: 11/07/18 18:17 Dose: 650 mg Aspirin (Ecotrin) 81 mg PO DAILY [facility] Last Admin: 11/07/18 09:45 Dose: 81 mg Clopidogrel Bisulfate (Plavix) 75 mg PO DAILY [facility] Last Admin: 11/07/18 09:45 Dose: 75 mg Enoxaparin Sodium (Lovenox) 30 mg SC DAILY [facility]; Protocol Last Admin: 11/07/18 09:44 Dose: 30 mg Fludrocortisone Acetate (Florinef) 0.1 mg PO QAM [facility] Last Admin: 11/07/18 09:45 Dose: 0.1 mg Furosemide (Lasix) 40 mg PO 0800,1400 [facility] Last Admin: 11/08/18 08:28 Dose: 40 mg Meropenem/Sodium Chloride (Merrem Iv 500 Mg/Ns 50 Ml) 500 mg in 50 mls @ 100 mls/hr IVPB Q8 [facility]; Protocol Stop: 11/13/18 14:01 Last Admin: 11/08/18 05:06 Dose: 100 mls/hr Insulin Human Regular (Humulin R Low) 0 units SC ACHS [facility]; Protocol Last Admin: 11/08/18 08:28 Dose: 2 units Linezolid (Zyvox) 600 mg PO BID [facility]; Protocol Stop: 11/11/18 13:31 Last Admin: 11/07/18 18:02 Dose: 600 mg Losartan Potassium (Cozaar) 25 mg PO DAILY [facility] Last Admin: 11/07/18 09:44 Dose: 25 mg Magnesium Oxide (Mag-Ox) 400 mg PO BID [facility] Last Admin: 11/07/18 18:02 Dose: 400 mg Mupirocin (Bactroban Ointment) 0 gm TOP BID [facility] Last Admin: 11/07/18 18:03 Dose: 1 appful Potassium Chloride (K-Dur 20 Meq Er Tab) 20 meq PO BRK [facility] Last Admin: 11/08/18 08:28 Dose: 20 meq Tamsulosin HCl (Flomax) 0.4 mg PO DAILY [facility] Last Admin: 11/07/18 09:45 Dose: 0.4 mg - Labs Labs: 11/08/18 08:00 11/08/18 08:00 PT 14.3 SECONDS (9.4-12.5) H 11/01/18 17:10 INR 1.29 11/01/18 17:10 APTT 40.2 Seconds (26.9-38.3) H 11/01/18 17:10 - Additional Findings Additional findings: - Constitutional Appears: Non-toxic, No Acute Distress - Head Exam Head Exam: ATRAUMATIC, NORMAL INSPECTION, NORMOCEPHALIC - Eye Exam Eye Exam: EOMI, Normal appearance, PERRL Pupil Exam: NORMAL ACCOMODATION - ENT Exam ENT Exam: Mucous Membranes Moist, Normal Exam - Neck Exam Neck exam: Positive for: Normal Inspection - Respiratory Exam Respiratory Exam: Clear to Auscultation Bilateral, NORMAL BREATHING PATTERN - Cardiovascular Exam Cardiovascular Exam: REGULAR RHYTHM, +S1, +S2 - GI/Abdominal Exam GI & Abdominal Exam: Normal Bowel Sounds, Soft (Upper Extremity Exam (LEFT)) - Extremities Exam Additional comments: Upper Extremity Exam (LEFT) + pulses intact no tenderness to palpation + sloughing of skin on arm, elbow + serous oozing no bullae + motor strength in tact + gross sensation in tact Assessment and Plan - Assessment and Plan (Free Text) Assessment: Patient is an 87-year-old M with PMH of CHF and DM who presents to [facility] for dysuria and testicular pain and was later found to have left upper extremity cellulitis; currently on zyvox and merrem Plan: warm compresses continue with antibiotics apply mupirocin 2% ointment to affected area BID gently/lightly wrap d/w Dr. Shin Farmer PGY1 <Julio Melissa - Last Filed: 11/08/18 14:15> Objective - Vital Signs/Intake and Output Vital Signs (last 24 hours): Temp Pulse Resp BP Pulse Ox 97.3 F L 75 18 140/74 96 11/08/18 12:00 11/08/18 12:00 11/08/18 12:00 11/08/18 12:41 11/08/18 06:00 Intake and Output: 11/08/18 11/08/18 06:59 18:59 Intake Total 220 Output Total 700 Balance -480 - Medications Medications: Current Medications Acetaminophen (Tylenol 325mg Tab) 650 mg PO Q6H PRN PRN Reason: Pain, Mild (1-3) Last Admin: 11/08/18 09:31 Dose: 650 mg Aspirin (Ecotrin) 81 mg PO DAILY [facility] Last Admin: 11/08/18 09:32 Dose: 81 mg Clopidogrel Bisulfate (Plavix) 75 mg PO DAILY [facility] Last Admin: 11/08/18 09:32 Dose: 75 mg Enoxaparin Sodium (Lovenox) 30 mg SC DAILY [facility]; Protocol Last Admin: 11/08/18 09:32 Dose: 30 mg Fludrocortisone Acetate (Florinef) 0.1 mg PO QAM [facility] Last Admin: 11/08/18 09:32 Dose: 0.1 mg Furosemide (Lasix) 40 mg PO 0800,1400 [facility] Last Admin: 11/08/18 08:28 Dose: 40 mg Hydralazine HCl (Apresoline) 50 mg PO BID [facility] Last Admin: 11/08/18 12:41 Dose: 50 mg Meropenem/Sodium Chloride (Merrem Iv 500 Mg/Ns 50 Ml) 500 mg in 50 mls @ 100 mls/hr IVPB Q8 [facility]; Protocol Stop: 11/13/18 14:01 Last Admin: 11/08/18 05:06 Dose: 100 mls/hr Insulin Human Regular (Humulin R Low) 0 units SC ACHS [facility]; Protocol Last Admin: 11/08/18 12:40 Dose: 3 units Linezolid (Zyvox) 600 mg PO BID [facility]; Protocol Stop: 11/11/18 13:31 Last Admin: 11/08/18 09:32 Dose: 600 mg Losartan Potassium (Cozaar) 25 mg PO DAILY [facility] Last Admin: 11/08/18 09:32 Dose: 25 mg Magnesium Oxide (Mag-Ox) 400 mg PO BID [facility] Last Admin: 11/08/18 09:32 Dose: 400 mg Mupirocin (Bactroban Ointment) 0 gm TOP BID [facility] Last Admin: 11/08/18 09:31 Dose: 1 appful Potassium Chloride (K-Dur 20 Meq Er Tab) 20 meq PO BRK [facility] Last Admin: 11/08/18 08:28 Dose: 20 meq Tamsulosin HCl (Flomax) 0.4 mg PO DAILY [facility] Last Admin: 11/08/18 09:32 Dose: 0.4 mg - Labs Labs: 11/08/18 08:00 11/08/18 08:00 PT 14.3 SECONDS (9.4-12.5) H 11/01/18 17:10 INR 1.29 11/01/18 17:10 APTT 40.2 Seconds (26.9-38.3) H 11/01/18 17:10 Assessment and Plan - Assessment and Plan (Free Text) Plan: Dx Failed BKA/Stumo VRE sepsis/PAD MEHDI AKA amputationWife in agreementDr Tato notified This consult done under my direct supervision' Anant Melissa MD FACS
[2018-11-08] MEDS: Mupirocin 2% Ointment 15 GM TUBE TOP SCH ×2 (09:31→17:01)
[2018-11-08] MEDS: Magnesium Oxide 400 mg Tab UD PO SCH ×2 (09:32→17:01)
[2018-11-08] MEDS: Enoxaparin 30 mg Syringe SC SCH (09:32)
--- NOTE | 2018-11-08 14:57 | CP.PCM.PCO ---
Physician Communication Note - Physician Communication Note Physician Communication Note: current voiding trial, repeat labs in am
--- NOTE | 2018-11-08 16:43 | PN ---
DATE: 11/08/2018 REASON FOR CONSULTATION: Acute decompensated congestive heart failure, [id number] kidney disease, systolic dysfunction, cardiac evaluation and followup. SUBJECTIVE: The patient denies any chest pain, shortness of breath, or any palpitation. He was complaining of pain in the arm in the left skin tear, which is in a dressing, and now feels a lot better. PHYSICAL EXAMINATION: VITAL SIGNS: Temperature afebrile, heart rate 83, and blood pressure 151/68. HEENT: PERRLA. Extraocular muscles intact. NECK: Supple. No carotid bruits. No thyromegaly. CHEST: Clear to auscultation. HEART: S1 and S2, regular. ABDOMEN: Soft. EXTREMITIES: Clubbing and cyanosis are negative. LABORATORY DATA: Blood workup are as follows: WBC 51, hemoglobin 13.1, hematocrit 46.3, platelet count 487. Chemistry shows sodium of 130, potassium 4.3, chloride 105, carbon dioxide 27, anion gap of 10. BUN 70, creatinine 1.6. Total protein 4.8, albumin 2.4, and albumin-globulin ratio 1. IMPRESSION: An 87-year-old male with past medical history significant for coronary artery disease, status post percutaneous transluminal angioplasty of right coronary artery in 2017 with a stent, diabetes, hypertension, hyperlipidemia, polycythemia vera, history of chronic renal insufficiency, renal tubular acidosis, very briefly Mobitz type 1, heart rate with 39. Holter monitor was done on 11/02/2018 that shows the rhythm was a normal sinus, frequent short CT, all under 1.9 seconds. The minimum heart rate was 38, the maximum heart rate was 114, average heart rate was 88. Has no pacemaker as indicated at this time. The patient is admitted with acute decompensated congestive heart failure, worsening renal insufficiency. Initially, he was treated with IV Primacor, now the patient is stable off Primacor. RECOMMENDATIONS: Continue broad-spectrum antibiotics. The patient has been seen by Dr. Melissa for a skin tear on the left arm, which is under dressing. Continue Losartan 25 mg daily. Monitor renal function. Continue Florinef for postural hypotension. Continue Lasix, change to p.o. DVT prophylaxis. Avoid nephrotoxic mediation. Continue antibiotics as per ID. Avoid beta-seda. Since the patient has a running blood pressure of 160 and renal insufficiency, we will start 50 b.i.d. of hydralazine. We will hold for systolic blood pressure less than 130, and if it remained stable, we will discontinue telemetry. So far the blood culture was negative Proteus mirabilis on 11/03/2018. The patient was on Zyvox. We will repeat the blood workup tomorrow. Swetha Jimenez MD
--- NOTE | 2018-11-08 21:06 | CP.PCM.PCO ---
Physician Communication Note - Physician Communication Note Physician Communication Note: Wrong note!-consult/MEHDI Cristina aware all agree
--- NOTE | 2018-11-08 21:09 | CP.PCM.PCO ---
Physician Communication Note - Physician Communication Note Physician Communication Note: Sorry-wrong pt note:Cons Rx Cellulitis L Arm
--- NOTE | 2018-11-08 22:55 | PN ---
DATE: 11/08/2018 SUBJECTIVE: Patient is in room 569, bed 1. PHYSICAL EXAMINATION: VITAL SIGNS: Temperature is 97, blood pressure is 130/50, respiratory rate 18. HEENT: Unremarkable. NECK: Supple. LUNGS: Decreased breath sounds. HEART: Normal S1, S2. ABDOMEN: Soft. LABORATORY EXAMINATION: White count is 15,300 and hemoglobin of 13. BUN of 73. Creatinine of 1.6. Urinalysis is noted. Microbiology reveals urine culture is Proteus. Blood cultures are negative. Proteus mirabilis is pansensitive. ASSESSMENT AND PLAN: This is an 87-year-old who was admitted with severe sepsis, left arm cellulitis, congestive heart failure, healthcare-associated pneumonia, acute kidney injury, ALLERGY TO PENICILLIN, pansensitive Proteus in the urine. CAT scan negative. Today, white count is down to 15,300, on Zyvox and meropenem, day #5. We will check on tomorrow's white count. We will follow and make further recommendations. Juan Francisco Brady MD
[2018-11-09] MEDS: MEROPENEM 500 MG in NS 500 MG/50 ML BAG IVPB SCH ×3 (05:14→21:47)
--- NOTE | 2018-11-09 06:42 | CP.PCM.PN ---
Subjective - Date & Time of Evaluation Date of Evaluation: 11/09/18 Time of Evaluation: 06:23 - Subjective Subjective: Lying in bed, Awake, alert, no distress, feels better Reason for consultation and follow up: Cardiac evaluation of shortness of breat h, decompensated congestive heart failure, history of CHF,coronary artery disease with stents, diabetes Seen and examined by me and Dr. Jimenez Objective - Vital Signs/Intake and Output Vital Signs (last 24 hours): Temp Pulse Resp BP Pulse Ox 97.7 F 72 18 150/58 L 97 11/08/18 21:54 11/08/18 21:54 11/08/18 21:54 11/08/18 21:54 11/08/18 21:54 Intake and Output: 11/08/18 11/09/18 18:59 06:59 Intake Total 300 Output Total 300 Balance 0 - Medications Medications: Current Medications Acetaminophen (Tylenol 325mg Tab) 650 mg PO Q6H PRN PRN Reason: Pain, Mild (1-3) Last Admin: 11/08/18 09:31 Dose: 650 mg Aspirin (Ecotrin) 81 mg PO DAILY [facility] Last Admin: 11/08/18 09:32 Dose: 81 mg Clopidogrel Bisulfate (Plavix) 75 mg PO DAILY [facility] Last Admin: 11/08/18 09:32 Dose: 75 mg Enoxaparin Sodium (Lovenox) 30 mg SC DAILY [facility]; Protocol Last Admin: 11/08/18 09:32 Dose: 30 mg Fludrocortisone Acetate (Florinef) 0.1 mg PO QAM [facility] Last Admin: 11/08/18 09:32 Dose: 0.1 mg Furosemide (Lasix) 40 mg PO 0800,1400 [facility] Last Admin: 11/08/18 14:12 Dose: 40 mg Hydralazine HCl (Apresoline) 50 mg PO BID [facility] Last Admin: 11/08/18 17:01 Dose: 50 mg Meropenem/Sodium Chloride (Merrem Iv 500 Mg/Ns 50 Ml) 500 mg in 50 mls @ 100 mls/hr IVPB Q8 [facility]; Protocol Stop: 11/13/18 14:01 Last Admin: 11/09/18 05:14 Dose: 100 mls/hr Insulin Human Regular (Humulin R Low) 0 units SC ACHS [facility]; Protocol Last Admin: 11/08/18 17:01 Dose: 2 units Linezolid (Zyvox) 600 mg PO BID [facility]; Protocol Stop: 11/11/18 13:31 Last Admin: 11/08/18 17:01 Dose: 600 mg Losartan Potassium (Cozaar) 25 mg PO DAILY [facility] Last Admin: 11/08/18 09:32 Dose: 25 mg Magnesium Oxide (Mag-Ox) 400 mg PO BID [facility] Last Admin: 11/08/18 17:01 Dose: 400 mg Mupirocin (Bactroban Ointment) 0 gm TOP BID [facility] Last Admin: 11/08/18 17:01 Dose: 1 appful Potassium Chloride (K-Dur 20 Meq Er Tab) 20 meq PO BRK [facility] Last Admin: 11/08/18 08:28 Dose: 20 meq Tamsulosin HCl (Flomax) 0.4 mg PO DAILY [facility] Last Admin: 11/08/18 09:32 Dose: 0.4 mg - Labs Labs: 11/08/18 08:00 11/08/18 08:00 PT 14.3 SECONDS (9.4-12.5) H 11/01/18 17:10 INR 1.29 11/01/18 17:10 APTT 40.2 Seconds (26.9-38.3) H 11/01/18 17:10 - Constitutional Appears: Non-toxic, No Acute Distress - Head Exam Head Exam: NORMAL INSPECTION, NORMOCEPHALIC - Eye Exam Eye Exam: Normal appearance Pupil Exam: NORMAL ACCOMODATION - ENT Exam ENT Exam: Mucous Membranes Moist, Normal Exam - Respiratory Exam Respiratory Exam: Decreased Breath Sounds, Clear to Ausculation Bilateral, NORMAL BREATHING PATTERN - Cardiovascular Exam Cardiovascular Exam: +S1, +S2 - GI/Abdominal Exam GI & Abdominal Exam: Soft, Normal Bowel Sounds - Extremities Exam Additional comments: 2+edema left arm dressing - Neurological Exam Neurological Exam: Alert, Awake, Oriented x3 - Psychiatric Exam Psychiatric exam: Normal Affect, Normal Mood - Skin Skin Exam: Dry, Normal Color Assessment and Plan - Assessment and Plan (Free Text) Assessment: An 87 year old male who came in to the ER due to shortness of breath and leg swelling. History of systolic dysfunction congestive heart failure, coronary artery disease post PTCA of RCA in 2012 then stent of circumflex in 2017. diabetes, polycythemia vera,chronic renal insufficiency, renal tubular acidosis. Hyperkalemia, kayexalate given. Echo done and showed LVEF 40-45%, systolic function mildly impaired, moderate to severe mitral regurgitation, moderate tric uspid regurgitation, RVSP 59mmHg, moderate to severe pulmonary hypertension. Diuresed and Primacor given for decompensated congestive heart failure. Synptoms resolved. Denies shortness of breath. Urine culture positive for Proteus mirabilis. ID on consult. Continue IV antibiotics as ordered. Left arm swelling/cellulitis. Dr. Melissa on consult. No further cardiac work up at this time Plan: Cardiac status stable Denies shortness of breath Heart rate stable Blood pressure stable On ASA 81 mg daily,Plavix 75 mg daily,Lovenox 30 mg daily, Lasix 40 mg BID, Flomax 0.4 mg daily, Hydralazine 50 mg BID Cozaar 25 mg daily,Kdur 20 meq daily, Continue current treatment Continue current medications Continue IV antibiotics per ID No further cardiac work up at this time Will follow up Plan and treatment discussed with Dr. Jimenez
--- NOTE | 2018-11-09 07:24 | CP.PCM.PN ---
Subjective - Date & Time of Evaluation Date of Evaluation: 11/09/18 Time of Evaluation: 07:00 - Subjective Subjective: c/o discomfort left arm, dressing intact, denies chest pain, no SOB Objective - Vital Signs/Intake and Output Vital Signs (last 24 hours): Temp Pulse Resp BP Pulse Ox 97.7 F 72 18 150/58 L 97 11/08/18 21:54 11/08/18 21:54 11/08/18 21:54 11/08/18 21:54 11/08/18 21:54 Intake and Output: 11/09/18 11/09/18 06:59 18:59 Intake Total 300 Output Total 300 Balance 0 - Medications Medications: Current Medications Acetaminophen (Tylenol 325mg Tab) 650 mg PO Q6H PRN PRN Reason: Pain, Mild (1-3) Last Admin: 11/08/18 09:31 Dose: 650 mg Aspirin (Ecotrin) 81 mg PO DAILY [facility] Last Admin: 11/08/18 09:32 Dose: 81 mg Clopidogrel Bisulfate (Plavix) 75 mg PO DAILY [facility] Last Admin: 11/08/18 09:32 Dose: 75 mg Enoxaparin Sodium (Lovenox) 30 mg SC DAILY [facility]; Protocol Last Admin: 11/08/18 09:32 Dose: 30 mg Fludrocortisone Acetate (Florinef) 0.1 mg PO QAM [facility] Last Admin: 11/08/18 09:32 Dose: 0.1 mg Hydralazine HCl (Apresoline) 50 mg PO BID [facility] Last Admin: 11/08/18 17:01 Dose: 50 mg Meropenem/Sodium Chloride (Merrem Iv 500 Mg/Ns 50 Ml) 500 mg in 50 mls @ 100 mls/hr IVPB Q8 [facility]; Protocol Stop: 11/13/18 14:01 Last Admin: 11/09/18 05:14 Dose: 100 mls/hr Insulin Human Regular (Humulin R Low) 0 units SC ACHS [facility]; Protocol Last Admin: 11/08/18 17:01 Dose: 2 units Linezolid (Zyvox) 600 mg PO BID [facility]; Protocol Stop: 11/11/18 13:31 Last Admin: 11/08/18 17:01 Dose: 600 mg Losartan Potassium (Cozaar) 25 mg PO DAILY [facility] Last Admin: 05/07/19 09:32 Dose: 25 mg Magnesium Oxide (Mag-Ox) 400 mg PO BID [facility] Last Admin: 11/08/18 17:01 Dose: 400 mg Mupirocin (Bactroban Ointment) 0 gm TOP BID [facility] Last Admin: 11/08/18 17:01 Dose: 1 appful Potassium Chloride (K-Dur 20 Meq Er Tab) 20 meq PO BRK [facility] Last Admin: 11/08/18 08:28 Dose: 20 meq Tamsulosin HCl (Flomax) 0.4 mg PO DAILY [facility] Last Admin: 11/08/18 09:32 Dose: 0.4 mg - Labs Labs: 11/08/18 08:00 11/08/18 08:00 PT 14.3 SECONDS (9.4-12.5) H 11/01/18 17:10 INR 1.29 11/01/18 17:10 APTT 40.2 Seconds (26.9-38.3) H 11/01/18 17:10 - Respiratory Exam Respiratory Exam: Clear to Ausculation Bilateral, NORMAL BREATHING PATTERN - Cardiovascular Exam Cardiovascular Exam: REGULAR RHYTHM - GI/Abdominal Exam GI & Abdominal Exam: Soft, Normal Bowel Sounds - Extremities Exam Extremities Exam: Pedal Edema - Neurological Exam Neurological Exam: Alert, Awake - Skin Skin Exam: Dry, Warm Assessment and Plan (1) CHF (congestive heart failure) Status: Acute (2) Coronary artery disease Status: Chronic (3) Renal tubular acidosis, type IV Status: Chronic (4) Type II diabetes mellitus Status: Chronic (5) Acute urinary retention Status: Acute (6) BPH (benign prostatic hyperplasia) Status: Chronic (7) Leukocytosis, unspecified Status: Acute (8) Hypertension Status: Acute - Assessment and Plan (Free Text) Plan: leukocytosis improving, continue Abx, ID & cardio follow-up, increase Lasix, monitor lytes/WBCs
[2018-11-09 07:37] LABS: BASO # 0.04 K/mm3 (0.0-2.0); BASO % 0.2 % (0.0-3.0); EOS # 0.5 (0.0-0.7); EOS % 3.1 % (1.5-5.0); HEMOGLOBIN 13.9 g/dL (14.0-18.0); LYMPH # 1.6 (1.2-3.4); LYMPH % 9.1 % (22.0-35.0); MEAN CELL VOLUME 59.9 fl (80.0-105.0); MEAN CORPUSCULAR HEMOGLOBIN 16.8 pg (25.0-35.0); MEAN CORPUSCULAR HGB CONC 28.1 g/dl (31.0-37.0); MONO # 0.5 (0.1-0.6); PLATELET COUNT 573 10^3/uL (120.0-450.0); RED CELL DISTRIBUTION WIDTH 23.1 % (11.5-14.5); WHITE BLOOD COUNT 17.5 10^3/uL (4.5-11.0)
[2018-11-09 07:52] LABS: RBC 8.36 10^6/uL (3.5-6.1)
[2018-11-09] MEDS: Insulin Reg-LOW-Coverage SC SCH ×3 (08:11→17:25)
[2018-11-09] MEDS: Potassium Chloride 20 mEq ER Tab PO SCH (10:48)
[2018-11-09] MEDS: Magnesium Oxide 400 mg Tab UD PO SCH ×2 (10:48→17:33)
[2018-11-09] MEDS: Enoxaparin 30 mg Syringe SC SCH (10:48)
[2018-11-09] MEDS: Mupirocin 2% Ointment 15 GM TUBE TOP SCH (10:49)
--- NOTE | 2018-11-09 11:44 | CP.PCM.PN ---
Subjective - Date & Time of Evaluation Date of Evaluation: 11/09/18 Time of Evaluation: 11:41 - Subjective Subjective: PGY1 General Surgery Progress Note for Dr. Melissa Patient seen and evaluated at bedside this morning. No acute events overnight. Patient says he has mild arm pain, however he attributes it to flexing/extending his arm. Patient denies fever, chills, nausea, vomiting, abdominal pain, numbness/tingling, and/or loss of sensation. Objective - Vital Signs/Intake and Output Vital Signs (last 24 hours): Temp Pulse Resp BP Pulse Ox 97.5 F L 89 18 157/84 H 97 11/09/18 06:00 11/09/18 10:47 11/09/18 06:00 11/09/18 10:49 11/09/18 06:00 Intake and Output: 11/09/18 11/09/18 06:59 18:59 Intake Total 300 Output Total 300 Balance 0 - Medications Medications: Current Medications Acetaminophen (Tylenol 325mg Tab) 650 mg PO Q6H PRN PRN Reason: Pain, Mild (1-3) Last Admin: 11/08/18 09:31 Dose: 650 mg Aspirin (Ecotrin) 81 mg PO DAILY [facility] Last Admin: 11/09/18 10:47 Dose: 81 mg Clopidogrel Bisulfate (Plavix) 75 mg PO DAILY [facility] Last Admin: 11/09/18 10:48 Dose: 75 mg Enoxaparin Sodium (Lovenox) 30 mg SC DAILY [facility]; Protocol Last Admin: 11/09/18 10:48 Dose: 30 mg Fludrocortisone Acetate (Florinef) 0.1 mg PO QAM [facility] Last Admin: 11/09/18 10:48 Dose: 0.1 mg Furosemide (Lasix) 80 mg PO 0800,1400 [facility] Last Admin: 11/09/18 10:49 Dose: 80 mg Hydralazine HCl (Apresoline) 50 mg PO BID [facility] Last Admin: 11/09/18 10:47 Dose: 50 mg Meropenem/Sodium Chloride (Merrem Iv 500 Mg/Ns 50 Ml) 500 mg in 50 mls @ 100 mls/hr IVPB Q8 [facility]; Protocol Stop: 11/13/18 14:01 Last Admin: 11/09/18 05:14 Dose: 100 mls/hr Insulin Human Regular (Humulin R Low) 0 units SC ACHS [facility]; Protocol Last Admin: 11/09/18 08:11 Dose: 2 units Linezolid (Zyvox) 600 mg PO BID [facility]; Protocol Stop: 11/11/18 13:31 Last Admin: 11/09/18 10:48 Dose: 600 mg Losartan Potassium (Cozaar) 25 mg PO DAILY [facility] Last Admin: 11/09/18 10:48 Dose: 25 mg Magnesium Oxide (Mag-Ox) 400 mg PO BID [facility] Last Admin: 11/09/18 10:48 Dose: 400 mg Mupirocin (Bactroban Ointment) 0 gm TOP BID [facility] Last Admin: 11/09/18 10:49 Dose: 1 appful Potassium Chloride (K-Dur 20 Meq Er Tab) 20 meq PO BRK [facility] Last Admin: 11/09/18 10:48 Dose: 20 meq Tamsulosin HCl (Flomax) 0.4 mg PO DAILY [facility] Last Admin: 11/09/18 10:48 Dose: 0.4 mg - Labs Labs: 11/09/18 07:00 11/09/18 07:00 PT 14.3 SECONDS (9.4-12.5) H 11/01/18 17:10 INR 1.29 11/01/18 17:10 APTT 40.2 Seconds (26.9-38.3) H 11/01/18 17:10 - Additional Findings Additional findings: - Constitutional Appears: Non-toxic, No Acute Distress - Head Exam Head Exam: ATRAUMATIC, NORMAL INSPECTION, NORMOCEPHALIC - Eye Exam Eye Exam: EOMI, Normal appearance, PERRL Pupil Exam: NORMAL ACCOMODATION - ENT Exam ENT Exam: Mucous Membranes Moist, Normal Exam - Neck Exam Neck exam: Positive for: Normal Inspection - Respiratory Exam Respiratory Exam: Clear to Auscultation Bilateral, NORMAL BREATHING PATTERN - Cardiovascular Exam Cardiovascular Exam: REGULAR RHYTHM, +S1, +S2 - GI/Abdominal Exam GI & Abdominal Exam: Normal Bowel Sounds, Soft (Upper Extremity Exam (LEFT)) - Extremities Exam Additional comments: Upper Extremity Exam (LEFT) + pulses intact no tenderness to palpation + sloughing of skin on arm, elbow + serous oozing no bullae + motor strength in tact + gross sensation in tact Assessment and Plan - Assessment and Plan (Free Text) Assessment: Patient is an 87-year-old M with PMH of CHF and DM who presents to [facility] [place] for dysuria and testicular pain and was later found to have left upper extremity cellulitis; currently on zyvox and merrem Plan: continue warm compresses continue with antibiotics continue to apply mupirocin 2% ointment to affected area BID gently/lightly wrap d/w Dr. Shin Farmer PGY1
--- NOTE | 2018-11-09 14:59 | CP.PCM.PCO ---
Physician Communication Note - Physician Communication Note Physician Communication Note: US abd, CT chest, Hida scan, legionella, MRSA screen pending
[2018-11-09] MEDS ORDERED: levoFLOXacin 500 mg in D5W 500 MG/100 ML BAG IVPB SCH (15:00)
[2018-11-09] MEDS: levoFLOXacin 500 mg in D5W 500 MG/100 ML BAG IVPB SCH (15:22)
--- NOTE | 2018-11-09 16:38 | CT ---
Date of service: 11/09/2018 PROCEDURE: CT Chest without contrast HISTORY: r/o PNA COMPARISON: 11/06/2018 TECHNIQUE: Contiguous axial images were obtained through the chest without intravenous contrast enhancement. Sagittal and coronal reconstructions were performed. Radiation dose: Total exam DLP = 443.92 mGy-cm. This CT exam was performed using one or more of the following dose reduction techniques: Automated exposure control, adjustment of the mA and/or kV according to patient size, and/or use of iterative reconstruction technique. FINDINGS: LUNGS: There is bibasilar consolidation adjacent to the moderate size pleural effusions. This could represent atelectasis. The upper lobes are clear. MEDIASTINUM: Unremarkable thoracic aorta. No aneurysm. Normal sized heart. Main pulmonary artery unremarkable. No vascular congestion. No lymphadenopathy. Aortic and coronary artery calcifications PLEURA: Moderate size bilateral pleural effusions BONES: No fracture. No destructive lesion. UPPER ABDOMEN: Grossly unremarkable. OTHER FINDINGS: None. IMPRESSION: There is bibasilar consolidation adjacent to the moderate size pleural effusions. This could represent atelectasis. The upper lobes are clear.
--- NOTE | 2018-11-09 18:25 | US ---
Date of service: 11/09/2018 HISTORY: visualize hepatic duct, leukocytosis, elevated alk COMPARISON: None. TECHNIQUE: Sonographic evaluation of the right upper quadrant of the abdomen. FINDINGS: LIVER: Measures 15.9 cm in length. Patent portal and hepatic venous systems. Hepatopedal blood flow. Fatty infiltration manifest ultrasonographically as increased echogenicity of the liver parenchyma. No mass. No intrahepatic bile duct dilatation. GALLBLADDER: Unremarkable. No gallstones. COMMON BILE DUCT: Measures 6.0 mm. No stones. No dilatation. PANCREAS: Unremarkable as visualized. No mass. No ductal dilatation. RIGHT KIDNEY: Measures 3.4 x 10.8 cm in length. Normal echogenicity. No calculus, mass, or hydronephrosis. AORTA: No aneurysmal dilatation. IVC: Unremarkable. OTHER FINDINGS: None . IMPRESSION: Hepatic steatosis, otherwise unremarkable study.
--- NOTE | 2018-11-10 07:00 | CP.PCM.PN ---
Subjective - Date & Time of Evaluation Date of Evaluation: 11/10/18 Time of Evaluation: 06:45 - Subjective Subjective: NAD, denies chest pain, no SOB Objective - Vital Signs/Intake and Output Vital Signs (last 24 hours): Temp Pulse Resp BP Pulse Ox 97.7 F 77 20 140/66 98 11/09/18 22:00 11/09/18 22:00 11/09/18 22:00 11/09/18 22:00 11/09/18 22:00 Intake and Output: 11/09/18 11/10/18 18:59 06:59 Intake Total 300 Output Total 300 Balance 0 - Medications Medications: Current Medications Acetaminophen (Tylenol 325mg Tab) 650 mg PO Q6H PRN PRN Reason: Pain, Mild (1-3) Last Admin: 11/09/18 17:32 Dose: 650 mg Aspirin (Ecotrin) 81 mg PO DAILY [facility] Last Admin: 11/09/18 10:47 Dose: 81 mg Clopidogrel Bisulfate (Plavix) 75 mg PO DAILY [facility] Last Admin: 11/09/18 10:48 Dose: 75 mg Enoxaparin Sodium (Lovenox) 30 mg SC DAILY [facility]; Protocol Last Admin: 11/09/18 10:48 Dose: 30 mg Fludrocortisone Acetate (Florinef) 0.1 mg PO QAM [facility] Last Admin: 11/09/18 10:48 Dose: 0.1 mg Furosemide (Lasix) 80 mg PO 0800,1400 [facility] Last Admin: 11/09/18 15:22 Dose: 80 mg Hydralazine HCl (Apresoline) 50 mg PO BID [facility] Last Admin: 11/09/18 17:33 Dose: 50 mg Meropenem/Sodium Chloride (Merrem Iv 500 Mg/Ns 50 Ml) 500 mg in 50 mls @ 100 mls/hr IVPB Q8 [facility]; Protocol Stop: 11/13/18 14:01 Last Admin: 11/09/18 21:47 Dose: 100 mls/hr Levofloxacin/Dextrose (Levaquin 500mg) 500 mg in 100 mls @ 100 mls/hr IVPB Q24H [facility]; Protocol Last Admin: 11/09/18 15:22 Dose: 100 mls/hr Insulin Human Regular (Humulin R Low) 0 units SC ACHS [facility]; Protocol Last Admin: 05/08/19 17:25 Dose: Not Given Linezolid (Zyvox) 600 mg PO BID [facility]; Protocol Stop: 11/11/18 13:31 Last Admin: 11/09/18 17:33 Dose: 600 mg Losartan Potassium (Cozaar) 25 mg PO DAILY [facility] Last Admin: 11/09/18 10:48 Dose: 25 mg Magnesium Oxide (Mag-Ox) 400 mg PO BID [facility] Last Admin: 11/09/18 17:33 Dose: 400 mg Mupirocin (Bactroban Ointment) 0 gm TOP BID [facility] Last Admin: 11/09/18 10:49 Dose: 1 appful Potassium Chloride (K-Dur 20 Meq Er Tab) 20 meq PO BRK [facility] Last Admin: 11/09/18 10:48 Dose: 20 meq Tamsulosin HCl (Flomax) 0.4 mg PO DAILY [facility] Last Admin: 11/09/18 10:48 Dose: 0.4 mg - Labs Labs: 11/09/18 07:00 11/09/18 07:00 PT 14.3 SECONDS (9.4-12.5) H 11/01/18 17:10 INR 1.29 11/01/18 17:10 APTT 40.2 Seconds (26.9-38.3) H 11/01/18 17:10 - Respiratory Exam Respiratory Exam: Rales - Cardiovascular Exam Cardiovascular Exam: REGULAR RHYTHM - GI/Abdominal Exam GI & Abdominal Exam: Soft, Normal Bowel Sounds - Extremities Exam Extremities Exam: Pedal Edema - Neurological Exam Neurological Exam: Alert, Awake Assessment and Plan (1) CHF (congestive heart failure) Status: Acute (2) Coronary artery disease Status: Chronic (3) Renal tubular acidosis, type IV Status: Chronic (4) Type II diabetes mellitus Status: Chronic (5) Acute urinary retention Status: Acute (6) BPH (benign prostatic hyperplasia) Status: Chronic (7) Leukocytosis, unspecified Status: Acute (8) Hypertension Status: Acute - Assessment and Plan (Free Text) Plan: TCU eval, continue Abx, ID & cardio follow-up, check labs in am
--- NOTE | 2018-11-10 08:05 | CP.PCM.PN ---
Subjective - Date & Time of Evaluation Date of Evaluation: 11/10/18 Time of Evaluation: 06:48 - Subjective Subjective: Awake, alert, no distress, Reason for consultation and follow up: Cardiac evaluation of shortness of breath, decompensated congestive heart failure, history of CHF,coronary artery disease with stents, diabetes Seen and examined by me and Dr. Jimenez Objective - Vital Signs/Intake and Output Vital Signs (last 24 hours): Temp Pulse Resp BP Pulse Ox 97.7 F 77 20 140/66 98 11/09/18 22:00 11/09/18 22:00 11/09/18 22:00 11/09/18 22:00 11/09/18 22:00 Intake and Output: 11/10/18 11/10/18 06:59 18:59 Intake Total 300 Output Total 300 Balance 0 - Medications Medications: Current Medications Acetaminophen (Tylenol 325mg Tab) 650 mg PO Q6H PRN PRN Reason: Pain, Mild (1-3) Last Admin: 11/09/18 17:32 Dose: 650 mg Aspirin (Ecotrin) 81 mg PO DAILY [facility] Last Admin: 11/09/18 10:47 Dose: 81 mg Clopidogrel Bisulfate (Plavix) 75 mg PO DAILY [facility] Last Admin: 11/09/18 10:48 Dose: 75 mg Enoxaparin Sodium (Lovenox) 30 mg SC DAILY [facility]; Protocol Last Admin: 11/09/18 10:48 Dose: 30 mg Fludrocortisone Acetate (Florinef) 0.1 mg PO QAM [facility] Last Admin: 11/09/18 10:48 Dose: 0.1 mg Furosemide (Lasix) 80 mg PO 0800,1400 [facility] Last Admin: 11/09/18 15:22 Dose: 80 mg Hydralazine HCl (Apresoline) 50 mg PO BID [facility] Last Admin: 11/09/18 17:33 Dose: 50 mg Meropenem/Sodium Chloride (Merrem Iv 500 Mg/Ns 50 Ml) 500 mg in 50 mls @ 100 mls/hr IVPB Q8 [facility]; Protocol Stop: 11/13/18 14:01 Last Admin: 11/09/18 21:47 Dose: 100 mls/hr Levofloxacin/Dextrose (Levaquin 500mg) 500 mg in 100 mls @ 100 mls/hr IVPB Q24H [facility]; Protocol Last Admin: 11/09/18 15:22 Dose: 100 mls/hr Insulin Human Regular (Humulin R Low) 0 units SC ACHS [facility]; Protocol Last Admin: 11/09/18 17:25 Dose: Not Given Linezolid (Zyvox) 600 mg PO BID [facility]; Protocol Stop: 11/11/18 13:31 Last Admin: 11/09/18 17:33 Dose: 600 mg Losartan Potassium (Cozaar) 25 mg PO DAILY [facility] Last Admin: 11/09/18 10:48 Dose: 25 mg Magnesium Oxide (Mag-Ox) 400 mg PO BID [facility] Last Admin: 11/09/18 17:33 Dose: 400 mg Mupirocin (Bactroban Ointment) 0 gm TOP BID [facility] Last Admin: 11/09/18 10:49 Dose: 1 appful Potassium Chloride (K-Dur 20 Meq Er Tab) 20 meq PO BRK [facility] Last Admin: 11/09/18 10:48 Dose: 20 meq Tamsulosin HCl (Flomax) 0.4 mg PO DAILY [facility] Last Admin: 11/09/18 10:48 Dose: 0.4 mg - Labs Labs: 11/09/18 07:00 11/09/18 07:00 PT 14.3 SECONDS (9.4-12.5) H 11/01/18 17:10 INR 1.29 11/01/18 17:10 APTT 40.2 Seconds (26.9-38.3) H 11/01/18 17:10 Assessment and Plan - Assessment and Plan (Free Text) Assessment: An 87 year old male who came in to the ER due to shortness of breath and leg swelling. History of systolic dysfunction congestive heart failure, coronary artery disease post PTCA of RCA in 2012 then stent of circumflex in 2017. diabetes, polycythemia vera,chronic renal insufficiency, renal tubular acidosis. Hyperkalemia, kayexalate given. Echo done and showed LVEF 40-45%, systolic function mildly impaired, moderate to severe mitral regurgitation, moderate tricuspid regurgitation, RVSP 59mmHg, moderate to severe pulmonary hypertension. Diuresed and Primacor given for decompensated congestive heart failure. Symptoms resolved. Denies shortness of breath. Urine culture positive for Proteus mirabilis. ID on consult. Continue IV antibiotics as ordered. Left arm swelling/cellulitis. Dr. Melissa on consult. No further cardiac work up at this time.CT of chest done yesterday showed moderate bilateral pleural effusion. Denies shortness of breath. Lasix dose was increased. Plan: No distress Cardiac status stable Denies shortness of breath Heart rate stable Blood pressure stable On ASA 81 mg daily,Plavix 75 mg daily,Lovenox 30 mg daily, Lasix 80 mg BID, Flomax 0.4 mg daily, Hydralazine 50 mg BID Cozaar 25 mg daily,Kdur 20 meq daily, Flomax 0.4 mg daily Continue current treatment Continue current medications Continue IV antibiotics per ID No further cardiac work up at this time Will follow up Plan and treatment discussed with Dr. Jimenez
--- NOTE | 2018-11-10 08:06 | PN ---
DATE: 11/09/2018 SUBJECTIVE: The patient is seen earlier today in 569, bed 1. The patient has no fevers or chills. OBJECTIVE: VITAL SIGNS: Temperature is 98, blood pressure is 150/60, respiratory rate is 18, and heart rate is 68. HEENT: Unremarkable. NECK: Supple. LUNGS: Have decreased breath sounds. HEART: Normal S1 and S2. ABDOMEN: Soft. EXTREMITIES: The arms has improved. LABORATORY EXAMINATION: Reveals a white count of 17,000 and hemoglobin of 13. Chemistries were reviewed. Urinalysis is noted. Microbiology is reviewed. There is Proteus mirabilis in the urine. REVIEW OF ORDERS: Reveal the patient to be on meropenem and Zyvox. The patient had an ultrasound of gallbladder and no stones, the common bile duct is 6 mm, no stone dilatation. The patient had a CAT scan of the chest, there is bibasilar consolidation adjacent to moderate size pleural effusions. MRSA screen is pending. Urine Legionella is pending. The patient is on Zyvox, meropenem, and Levaquin. HIDA scan is pending. ASSESSMENT AND PLAN: This is an 87-year-old male admitted with severe sepsis and developed left arm cellulitis, congestive heart failure, healthcare-associated pneumonia, acute kidney injury, ALLERGIC TO PENICILLIN, now infiltrates on the CAT scan healthcare-associated pneumonia. We will repeat a procalcitonin. Check on the remainder of the workup. Discussion with nurse practitioner, Fani Ulloa and workup involved. We will check tomorrow morning CBC. Juan Francisco Brady MD
[2018-11-10 08:29] VITALS: PULSE 72; RESP 18; TEMP 98.3; O2SAT 96
[2018-11-10] MEDS: Insulin Reg-LOW-Coverage SC SCH ×3 (09:44→17:37)
[2018-11-10] MEDS: Enoxaparin 30 mg Syringe SC SCH (09:45)
[2018-11-10] MEDS: Potassium Chloride 20 mEq ER Tab PO SCH ×2 (09:46→09:49)
[2018-11-10] MEDS: Magnesium Oxide 400 mg Tab UD PO SCH ×2 (09:47→17:36)
[2018-11-10] MEDS: Mupirocin 2% Ointment 15 GM TUBE TOP SCH ×2 (09:47→17:37)
[2018-11-10 10:16] LABS: BASO # 0.04 K/mm3 (0.0-2.0); BASO % 0.4 % (0.0-3.0); EOS # 0.2 (0.0-0.7); EOS % 2.1 % (1.5-5.0); HEMOGLOBIN 12.3 g/dL (14.0-18.0); LYMPH # 0.9 (1.2-3.4); LYMPH % 7.8 % (22.0-35.0); MEAN CELL VOLUME 60.6 fl (80.0-105.0); MEAN CORPUSCULAR HEMOGLOBIN 16.8 pg (25.0-35.0); MEAN CORPUSCULAR HGB CONC 27.7 g/dl (31.0-37.0); MONO # 0.3 (0.1-0.6); MONO % 2.7 % (1.0-6.0); PLATELET COUNT 506 10^3/uL (120.0-450.0); RBC 7.33 10^6/uL (3.5-6.1); WHITE BLOOD COUNT 11.4 10^3/uL (4.5-11.0)
[2018-11-10 10:24] LABS: ALB/GLOB RATIO 1.1 (1.1-1.8); ALBUMIN 2.6 g/dL (3.0-4.8); CALCIUM 7.9 mg/dL (8.4-10.5)
--- NOTE | 2018-11-10 12:51 | NM ---
Date of service: 11/10/2018 PROCEDURE: Nuclear Medicine Hepatobiliary Scan HISTORY: leukocytosis r/o biliary etiology COMPARISON: 11/06/2018. CT abdomen and pelvis. 11/09/2018 abdominal ultrasound. TECHNIQUE: 6.4 mCi of technetium 99m Mebrofenin was administered intravenously. Planar images of the abdomen were obtained at 5 min intervals to 60 mins. Delayed images were also obtained. FINDINGS: LIVER: Timely and homogenous uptake. COMMON BILE DUCT: identified at 5 mins. GALLBLADDER: identified at 15 mins. SMALL BOWEL: Identified at 45 mins. IMPRESSION: Normal Hepatobiliary Scan. The cystic duct is patent.
[2018-11-10] MEDS: MEROPENEM 500 MG in NS 500 MG/50 ML BAG IVPB SCH (13:57)
[2018-11-10 13:58] VITALS: BP 140/70
[2018-11-10] MEDS: levoFLOXacin 500 mg in D5W 500 MG/100 ML BAG IVPB SCH (17:37)
--- NOTE | 2018-11-10 19:25 | PN ---
DATE: 11/10/2018 SUBJECTIVE: The patient was seen earlier today in room 568, bed 2. He is comfortable. No fevers and no chills. PHYSICAL EXAMINATION VITAL SIGNS: Temperature is 98, blood pressure is 150/60, respiratory rate of 18. HEENT: Unremarkable. NECK: Supple. LUNGS: Have decreased breath sounds. HEART: Normal S1, S2. ABDOMEN: Soft. LABORATORY DATA: Reveals a white count is now over 11,000, hemoglobin of 12, platelets are noted. BUN of 68. Creatinine is at 1.5, also improving. The patient's procalcitonin is 0.44, which is down from 1.6. Urinalysis is noted. Microbiology reveals there is Proteus in the urine which is a relatively pansensitive Proteus. The blood cultures are reported to be negative. REVIEW OF ORDERS: Reveals the patient to be on meropenem and Zyvox. ASSESSMENT AND PLAN: An 87-year-old male with severe sepsis, developed left arm cellulitis, congestive heart failure, healthcare associated pneumonia, acute kidney injury, ALLERGIC TO PENICILLIN, infiltrates on the CT scan and with healthcare associated pneumonia. Procalcitonin is now normalized and the white count is improved on Levaquin, Zyvox and meropenem. We will reorder urine for Legionella antigen. We will follow the WBC count, may be able to switch antibiotics to p.o. tomorrow. Juan Francisco Brady MD
--- NOTE | 2018-11-12 01:06 | DS ---
HOSPITAL COURSE: The patient is an 87-year-old male admitted through the emergency department on 11/01/2018 with shortness of breath and increased leg edema. The patient was seen in consultation by Dr. Faulkner and Dr. Jimenez for congestive heart failure and was treated by Dr. Brady for pneumonia with IV meropenem and p.o. Zyvox. He also had a markedly elevated white blood cell count, which has improved with treatment. He is now medically stable and transferred to the Transitional Care Unit for further rehabilitation. The physical examination and vital signs are as per the progress note of 11/10/2018. IMPRESSION 1. Hypertension, hypertensive cardiovascular disease and congestive heart failure. 2. Pneumonia. 3. Type 2 diabetes mellitus with diabetic neuropathy and hyperkalemia secondary to type 4 renal tubular acidosis. 4. Chronic kidney disease, stage 3. 5. Degenerative joint disease. 6. Benign prostatic hypertrophy. 7. Coronary artery disease. PLAN: The patient will be transferred to the Transitional Care Unit on the following medications; Aldactone 25 mg twice daily, hydralazine 50 mg twice daily, Bactroban ointment twice daily, losartan 25 mg daily, Ecotrin 81 mg daily, Flomax 0.4 mg daily, Florinef 0.1 mg daily, potassium chloride 20 mEq daily, Lasix 80 mg twice daily, Levaquin 500 mg IV daily, magnesium oxide 400 mg twice daily, Plavix 75 mg daily. The patient will be maintained on a consistent carbohydrate diet. Activity as per rehab unit. LUIS Soto MD
== END 2018-11-10 20:14 | DRG 291 ==
LOC: ED 16:39 → ERH 18:28 → 2RSO 22:27 → 5RNO 11-08 16:11
PROVIDERS: ADMIT Internal Medicine; ATTEND Internal Medicine
DX: I13.0 Hypertensive heart and chronic kidney disease with heart failure and stage 1 through stage 4 chronic kidney disease, or unspecified chronic kidney disease (principal); I50.23 Acute on chronic systolic (congestive) heart failure; A41.9 Sepsis, unspecified organism; J18.9 Pneumonia, unspecified organism; R65.20 Severe sepsis without septic shock; N17.9 Acute kidney failure, unspecified; L03.114 Cellulitis of left upper limb; N39.0 Urinary tract infection, site not specified; E11.51 Type 2 diabetes mellitus with diabetic peripheral angiopathy without gangrene; E11.22 Type 2 diabetes mellitus with diabetic chronic kidney disease; E11.40 Type 2 diabetes mellitus with diabetic neuropathy, unspecified; I25.5 Ischemic cardiomyopathy; I25.10 Atherosclerotic heart disease of native coronary artery without angina pectoris; N18.3 Chronic kidney disease, stage 3 (moderate); N25.89 Other disorders resulting from impaired renal tubular function; E87.5 Hyperkalemia; N50.89 Other specified disorders of the male genital organs; N40.1 Benign prostatic hyperplasia with lower urinary tract symptoms; R33.8 Other retention of urine; I27.20 Pulmonary hypertension, unspecified; D45 Polycythemia vera; I08.1 Rheumatic disorders of both mitral and tricuspid valves; I95.1 Orthostatic hypotension; E78.5 Hyperlipidemia, unspecified; I44.0 Atrioventricular block, first degree; Y95 Nosocomial condition; Z79.02 Long term (current) use of antithrombotics/antiplatelets; Z95.5 Presence of coronary angioplasty implant and graft; Z91.81 History of falling; Z88.0 Allergy status to penicillin

== ENCOUNTER 2018-11-10 20:16 | Inpatient (IN) | payer OTHER ==
[2018-11-10 20:28] VITALS: BMI 29.7
[2018-11-10] MEDS: Insulin Reg-LOW-Coverage SC SCH (22:11)
[2018-11-11] MEDS: levoFLOXacin 500 mg in D5W 500 MG/100 ML BAG IVPB SCH (06:31)
[2018-11-11] MEDS: Insulin Reg-LOW-Coverage SC SCH ×4 (06:44→22:04)
[2018-11-11 07:39] LABS: BASO # 0.03 K/mm3 (0.0-2.0); BASO % 0.3 % (0.0-3.0); EOS # 0.2 (0.0-0.7); EOS % 1.8 % (1.5-5.0); HEMOGLOBIN 10.7 g/dL (14.0-18.0); LYMPH # 0.9 (1.2-3.4); LYMPH % 9.5 % (22.0-35.0); MEAN CELL VOLUME 62.5 fl (80.0-105.0); MEAN CORPUSCULAR HEMOGLOBIN 16.6 pg (25.0-35.0); MEAN CORPUSCULAR HGB CONC 26.6 g/dl (31.0-37.0); MONO # 0.3 (0.1-0.6); MONO % 3.2 % (1.0-6.0); RBC 6.43 10^6/uL (3.5-6.1); RED CELL DISTRIBUTION WIDTH 23.5 % (11.5-14.5); WHITE BLOOD COUNT 9.8 10^3/uL (4.5-11.0)
[2018-11-11] MEDS: Potassium Chloride 20 mEq ER Tab PO SCH (08:31)
[2018-11-11 09:51] LABS: ALBUMIN 2.6 g/dL (3.0-4.8); CALCIUM 7.8 mg/dL (8.4-10.5)
[2018-11-11] MEDS: Magnesium Oxide 400 mg Tab UD PO SCH ×2 (09:58→17:48)
[2018-11-11] MEDS: Mupirocin 2% Ointment 15 GM TUBE TOP SCH ×2 (09:58→17:46)
--- NOTE | 2018-11-11 20:59 | CON ---
DATE: 11/11/2018 LOCATION: The patient is in room 313, bed 2. REASON FOR CONSULTATION: Decompensated congestive heart failure, renal dysfunction, history of Mobitz type 1 cardiac rhythm, and deconditioning. HISTORY OF PRESENT ILLNESS: The patient is an 87-year-old male, who was admitted on medical floor with congestive heart failure and was found to have Mobitz type 1 block on rhythm. The patient also got worsening renal dysfunction, so the patient was treated medically including Primacor drip. The patient improved, and now, he is transferred to Transitional Care Unit for deconditioning and physical therapy. The patient denies any chest pain, shortness of breath, or palpitation at the present time. PAST MEDICAL HISTORY: Significant for polycythemia vera. 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 History of congestive heart failure in the past, history of type 2 diabetes mellitus, history of PTCA of right coronary artery in 2012 [facility] and later on history of a stent in the circumflex in 2016 and history of renal tubular acidosis in the past. PREVIOUS CARDIAC WORKUP: The patient had stress test on 01/25/2017 that showed abnormal myocardial perfusion study with fixed defect. No reversible ischemia. Ejection fraction 37%. The patient had echo on 11/28/2016 that showed ejection fraction within normal limits, hypokinesis of apical inferior wall, mild aortic regurgitation, mild to moderate mitral regurgitation, mild tricuspid regurgitation, and RV systolic pressure of 37 mmHg. The patient had repeat echo on 11/02/2018, which showed LV size was normal, mild LV hypertrophy with LV ejection fraction of 40-45%. Left atrium was mildly dilated, mild aortic regurgitation, moderate to severe mitral regurgitation, and moderate to severe tricuspid regurgitation. RVSP 59 mmHg which is suggestive of moderate to severe pulmonary hypertension. The patient also had Holter monitor on 11/02/2018, which showed Mobitz type 1 rhythm at time, and the patient was not a candidate for pacemaker due to this rhythm suggestion was to avoid beta blockers. The patient had a stent on 06/04/2017, and at that time, cardiac catheterization revealed the patent stent in RCA, moderate disease in the left main, LAD and RCA. LV ejection fraction at the time of catheterization was 50%, ADP was in the range of 18. MEDICATIONS AT HOME: Lasix 20 mg daily, glimepiride 4 mg daily, Plavix 75 daily, fludrocortisone 0.1 mg daily, Flomax 0.4 mg daily, and Mobic 15 mg daily. ALLERGIES: THE PATIENT SAID HE IS ALLERGIC TO PENICILLIN. PERSONAL HISTORY: No history of smoking or drinking. REVIEW OF SYSTEMS: All the systems reviewed, positive mentioned in the history. Others were negative. PHYSICAL EXAMINATION: VITAL SIGNS: Blood pressure 145/69, pulse is 85, respirations 18, and the patient is afebrile. HEENT: Head is normocephalic. Eyes, pupils normal. Conjunctivae slightly pale. NECK: JVP low. Carotids equal. THORAX: AP diameter normal. LUNGS: Clear. CARDIOVASCULAR: S1 and S2. ABDOMEN: Soft. No tenderness. No organomegaly. EXTREMITIES: No clubbing. No cyanosis. LABORATORY DATA: WBC 9.8, hemoglobin 10.7, hematocrit 40.2, and platelets 451. Sodium 133, potassium 4.4, BUN 69, creatinine 1.6, and random sugar 249, another sugar 246. Calcium 7.8. NT-pro-B natriuretic peptide 247, total protein 5.1, and albumin 2.6. The patient's EKG on 11/01/2018 showed sinus rhythm with marked sinus arrhythmia with first-degree AV block. Baseline artifact, nonspecific ST-T changes. The patient had IV Lexiscan stress test on 03/02/2018 showed fixed defect, LV ejection fraction 37%. As compared to 01/25/2017 stress test, there was no significant change. DIAGNOSES: The patient was admitted to the medical floor with congestive heart failure due to left ventricular systolic dysfunction. The patient had worsening renal function. The patient has history of coronary artery disease and history of coronary angioplasty. The patient also has Wenckebach rhythm, diabetes mellitus, hypertension, hyperlipidemia, cardiomyopathy, and deconditioning. PLAN: Continue physical therapy. Spironolactone 25 mg b.i.d., hydralazine 50 b.i.d., losartan 25 daily, aspirin 81 daily, Flomax 0.4 daily, fludrocortisone 0.1 mg daily, potassium 20 daily, furosemide 80 b.i.d., levofloxacin 500 mg IV daily, magnesium oxide 400 mg b.i.d., and Plavix 75 daily. We will continue present therapy. We will follow with you. Swetha Faulkner MD [facility] # [id number]
--- NOTE | 2018-11-11 22:18 | HP ---
DATE OF EXAM: 11/11/2018 HISTORY OF PRESENT ILLNESS: The patient is an 87-year-old male who was admitted to the hospital on 11/01/2018 with congestive heart failure and pneumonia. He was seen in consultation by Dr. Faulkner/Dr. Jimenez for CHF and treated with IV Lasix. He also had pneumonia and was treated by Dr. Brady, Infectious Disease with meropenem IV and Zyvox orally with improvement of his infection and leukocytosis. The patient is now admitted to the Transitional Care Unit for therapy status post hospitalization. PAST MEDICAL HISTORY: The patient's past medical history includes hypertension, hypertensive cardiovascular disease and CHF. He has a history of type 2 diabetes mellitus with diabetic neuropathy and type 4 renal tubular acidosis with hyperkalemia. The patient also has a history of coronary artery disease status post stent placement several years ago. PAST SURGICAL HISTORY: Includes BPH, on Flomax. CURRENT MEDICATIONS: Include Aldactone 25 mg twice daily, hydralazine 50 mg twice daily, Bactroban cream to the legs bilaterally, losartan 25 mg daily, Ecotrin 81 mg daily, Flomax 0.4 mg daily, Florinef 0.1 mg daily, potassium chloride 20 mEq daily, Lasix 80 mg twice daily, Levaquin 500 mg daily, Plavix 75 mg daily. SOCIAL HISTORY: The patient has no history of tobacco or alcohol use. ALLERGIES: THE PATIENT REPORTS AN ALLERGY TO PENICILLIN WITH ANAPHYLAXIS. FAMILY HISTORY: Noncontributory. REVIEW OF SYSTEMS: The patient denies any chest pain or shortness of breath. He has edema of the legs. There is no fever, rash or jaundice. No nausea, no vomiting, no diarrhea. No melena, no bright red blood per rectum. PHYSICAL EXAMINATION GENERAL: The patient is a well-developed male in no acute distress. VITAL SIGNS: Blood pressure 149/98, temperature 97.3, pulse 71, respiratory rate 18. HEENT: Head is normocephalic, atraumatic. Pupils equal, round, and reactive to light. Extraocular movements intact. NECK: Supple with no thyromegaly. No carotid bruit. No adenopathy. LUNGS: Show a few bibasilar crackles. HEART: Regular rate and rhythm. ABDOMEN: Soft, nontender. Bowel sounds are normoactive. EXTREMITIES: Without cyanosis or clubbing. There is 2 to 3+ edema to the calves bilaterally. NEUROLOGIC: The patient is awake and oriented x3 without focal sensory or motor deficits. SKIN: Warm and dry. A dressing of the left arm is intact due to a wound from IV infiltration of the left arm. LABORATORY DATA: WBC is 9.8, hemoglobin 10.7, hematocrit 40.2. Sodium 133, potassium 4.4, chloride 97, CO2 of 27, BUN 69, creatinine 1.6, glucose is 249. IMPRESSION 1. Hypertension, hypertensive cardiovascular disease/congestive heart failure. 2. Type 2 diabetes mellitus with diabetic neuropathy and hyperkalemia secondary to type 4 renal tubular acidosis. 3. Chronic kidney disease, stage 3. 4. Status post pneumonia. 5. Degenerative joint disease. 6. Benign prostatic hypertrophy, on Flomax. 7. Coronary artery disease. PLAN: The patient is admitted to the Transitional Care Unit for further rehabilitation. Physical Therapy, Social Work for discharge planning. Continue Infectious Disease and Cardiology followup. Julio C Mitchell JD/
--- NOTE | 2018-11-12 00:45 | CON ---
DATE OF CONSULTATION: 11/11/2018 The patient is in bed in no acute distress. The patient was seen earlier today in room 313. CHIEF COMPLAINT: Weakness since several days. HISTORY OF PRESENT ILLNESS: This is an 87-year-old male with past medical history of hypertension, cerebrovascular accident, coronary artery disease, congestive heart failure, diabetes mellitus, diabetic neuropathy, type 4 renal tubular acidosis, cardiac catheterization, stent placements, history of BPH, who is admitted with a diagnosis of congestive heart failure, had a fever, and now transferred to Transitional Care. Workup was done at that time. He was allergic to penicillin, the patient has on the CAT scan and healthcare-associated pneumonia. REVIEW OF SYSTEMS: Reveals a 12-point review of systems is performed. PAST MEDICAL HISTORY: Significant for hypertension, cerebrovascular accident, coronary artery disease, congestive heart failure, diabetes mellitus, diabetic neuropathy, type 4 renal tubular acidosis, BPH, acute kidney injury, and cardiac catheterization with stent placement. ALLERGIES: THE PATIENT IS ALLERGIC TO PENICILLIN. PHYSICAL EXAMINATION; GENERAL/VITAL SIGNS: The patient is in bed with a temperature of 98, blood pressure is 150/60, respiratory rate of 18. HEENT: Examination of HEENT is unremarkable. NECK: Supple. LUNGS: Have decreased breath sounds. HEART: Normal S1, S2. ABDOMEN: Soft and nontender. LABORATORY DATA: Laboratory examination reveals the white count is down to 9.8, hemoglobin is noted, and platelets of 451. BUN of 69. Creatinine is 1.6. Urine for Legionella antigen. Microbiology reveals the urine for Proteus. ASSESSMENT AND PLAN: An 87-year-old male who was addressed with severe sepsis and in acute care, developed left arm cellulitis, congestive heart failure, and healthcare-associated pneumonia with a urine Legionella that is negative, pro calcitonin is normalized, white count is normalized. We will complete with p.o. Levaquin therapy and discontinue Zyvox and meropenem, may be able to switch the Levaquin to p.o. Juan Francisco Brady MD
[2018-11-12] MEDS: levoFLOXacin 500 mg in D5W 500 MG/100 ML BAG IVPB SCH (05:52)
[2018-11-12] MEDS: Insulin Reg-LOW-Coverage SC SCH ×4 (07:04→22:57)
[2018-11-12] MEDS: Potassium Chloride 20 mEq ER Tab PO SCH (08:32)
--- NOTE | 2018-11-12 11:09 | CP.PCM.PN ---
Subjective - Date & Time of Evaluation Date of Evaluation: 11/12/18 Time of Evaluation: 10:45 - Subjective Subjective: c/o pain left shoulder, otherwise NAD, no chest pain, no SOB Objective - Vital Signs/Intake and Output Vital Signs (last 24 hours): Temp Pulse Resp BP Pulse Ox 97.3 F L 84 18 117/70 100 11/11/18 10:00 11/11/18 17:45 11/11/18 10:00 11/12/18 05:56 11/11/18 10:00 - Medications Medications: Current Medications Acetaminophen (Tylenol 325mg Tab) 650 mg PO Q6H PRN; Protocol PRN Reason: Pain, Mild (1-3) Aspirin (Ecotrin) 81 mg PO 0800 [facility]; Protocol Last Admin: 11/12/18 08:31 Dose: 81 mg Clopidogrel Bisulfate (Plavix) 75 mg PO 0800 [facility]; Protocol Last Admin: 11/12/18 08:31 Dose: 75 mg Fludrocortisone Acetate (Florinef) 0.1 mg PO DAILY [facility]; Protocol Last Admin: 11/11/18 09:59 Dose: 0.1 mg Furosemide (Lasix) 80 mg PO 0600,1800 [facility]; Protocol Last Admin: 11/12/18 05:56 Dose: 80 mg Hydralazine HCl (Apresoline) 50 mg PO BID [facility]; Protocol Last Admin: 11/11/18 17:45 Dose: 50 mg Levofloxacin/Dextrose (Levaquin 500mg) 500 mg in 100 mls @ 100 mls/hr IVPB 0600 [facility]; Protocol Last Admin: 11/12/18 05:52 Dose: 100 mls/hr Insulin Human Regular (Humulin R Low) 0 units SC ACHS [facility]; Protocol Last Admin: 11/12/18 07:04 Dose: 3 u Losartan Potassium (Cozaar) 25 mg PO DAILY [facility]; Protocol Last Admin: 11/11/18 09:58 Dose: 25 mg Magnesium Oxide (Mag-Ox) 400 mg PO BID [facility]; Protocol Last Admin: 11/11/18 17:48 Dose: 400 mg Mupirocin (Bactroban Ointment) 0 gm TOP BID [facility]; Protocol Last Admin: 11/11/18 17:46 Dose: 1 applic Potassium Chloride (K-Dur 20 Meq Er Tab) 20 meq PO 0800 [facility]; Protocol Last Admin: 11/12/18 08:32 Dose: 20 meq Spironolactone (Aldactone) 25 mg PO BID [facility]; Protocol Last Admin: 11/11/18 17:44 Dose: 25 mg Tamsulosin HCl (Flomax) 0.4 mg PO DAILY [facility]; Protocol Last Admin: 11/11/18 09:57 Dose: 0.4 mg - Labs Labs: 11/11/18 07:20 11/11/18 08:45 - Respiratory Exam Respiratory Exam: Clear to Ausculation Bilateral, NORMAL BREATHING PATTERN - Cardiovascular Exam Cardiovascular Exam: REGULAR RHYTHM - GI/Abdominal Exam GI & Abdominal Exam: Soft, Normal Bowel Sounds - Back Exam Additional comments: left arm dressing clean and intact - Neurological Exam Neurological Exam: Alert, Awake Assessment and Plan (1) CHF (congestive heart failure) Status: Chronic (2) Hypertension Status: Chronic (3) BPH (benign prostatic hyperplasia) Status: Chronic (4) Coronary artery disease Status: Chronic (5) Renal tubular acidosis, type IV Status: Chronic (6) Type II diabetes mellitus Status: Chronic - Assessment and Plan (Free Text) Plan: continue present car, Levaquin PO, check xray left shoulder, surgical/cardio/ID follow-up
[2018-11-12] MEDS: Magnesium Oxide 400 mg Tab UD PO SCH ×2 (11:12→17:57)
[2018-11-12] MEDS: Mupirocin 2% Ointment 15 GM TUBE TOP SCH ×2 (11:14→17:58)
--- NOTE | 2018-11-12 11:52 | CP.PCM.PCO ---
Physician Communication Note - Physician Communication Note Physician Communication Note: cont wound care as ordered. warm compress as ordered
--- NOTE | 2018-11-12 12:49 | RAD ---
Date of service: 11/12/2018 PROCEDURE: Radiographs of the left shoulder HISTORY: Left should pain COMPARISON: No prior. TECHNIQUE: Three views were obtained. FINDINGS: BONES: Bone alignment is normal. There is no acute displaced fracture or bone destruction. There is periarticular bone demineralization. JOINTS: There is moderate degenerative osteoarthrosis in the acromioclavicular and glenohumeral joints with reduced joint spaces and marginal spurring. SOFT TISSUES: Normal. OTHER FINDINGS: None. IMPRESSION: No acute displaced fracture or dislocation.
--- NOTE | 2018-11-12 22:35 | PN ---
DATE: 11/12/2018 SUBJECTIVE: The patient is seen in bed, in no acute distress, and nontoxic. OBJECTIVE: VITAL SIGNS: Temperature is 98, blood pressure is 160/60, and respiratory rate of 18. HEENT: Unremarkable. NECK: Supple. LUNGS: Have decreased breath sounds. HEART: Normal S1 and S2. ABDOMEN: Soft. LABORATORY EXAMINATION: Reveals a white count of 9.8, hemoglobin of 10, and creatinine is 1.6. Serology is noted. Microbiology is noted. ASSESSMENT AND PLAN: This is an 87-year-old male who was seen earlier this morning in room 313 with a history of hypertension, cerebrovascular accident, coronary artery disease, congestive heart failure, diabetes, diabetic neuropathy, type 4 renal tubular acidosis, benign prostatic hypertrophy, acute kidney injury, and cardiac catheterization who was admitted and had found to have severe sepsis acute care, developed left arm cellulitis, congestive heart failure, healthcare-associated pneumonia with procalcitonin is normalized, white count is normalized, and Legionella antigen is negative. Currently on IV Levaquin, would complete a course of p.o. Levaquin. May switch to p.o. Levaquin to complete therapy. Juan Francisco Brady MD
[2018-11-13] MEDS: levoFLOXacin 500 mg in D5W 500 MG/100 ML BAG IVPB SCH (05:31)
[2018-11-13] MEDS: Insulin Reg-LOW-Coverage SC SCH ×4 (06:58→22:07)
[2018-11-13] MEDS: Potassium Chloride 20 mEq ER Tab PO SCH (08:13)
--- NOTE | 2018-11-13 10:41 | CP.PCM.PN ---
Subjective - Date & Time of Evaluation Date of Evaluation: 11/13/18 Time of Evaluation: 10:15 - Subjective Subjective: OOB in chair, NAD, denies chest pain, no SOB Objective - Vital Signs/Intake and Output Vital Signs (last 24 hours): Temp Pulse Resp BP Pulse Ox 97.3 F L 88 18 162/74 H 100 11/11/18 10:00 11/12/18 17:57 11/11/18 10:00 11/13/18 05:32 11/11/18 10:00 - Medications Medications: Current Medications Acetaminophen (Tylenol 325mg Tab) 650 mg PO Q6H PRN; Protocol PRN Reason: Pain, Mild (1-3) Last Admin: 11/12/18 11:11 Dose: 650 mg Aspirin (Ecotrin) 81 mg PO 0800 [facility]; Protocol Last Admin: 11/13/18 08:14 Dose: 81 mg Clopidogrel Bisulfate (Plavix) 75 mg PO 0800 [facility]; Protocol Last Admin: 11/13/18 08:14 Dose: 75 mg Fludrocortisone Acetate (Florinef) 0.1 mg PO DAILY [facility]; Protocol Last Admin: 11/12/18 11:12 Dose: 0.1 mg Furosemide (Lasix) 80 mg PO 0600,1800 [facility]; Protocol Last Admin: 11/13/18 05:32 Dose: 80 mg Hydralazine HCl (Apresoline) 50 mg PO BID [facility]; Protocol Last Admin: 11/12/18 17:57 Dose: 50 mg Insulin Human Regular (Humulin R Low) 0 units SC ACHS [facility]; Protocol Last Admin: 11/13/18 06:58 Dose: 1 u Levofloxacin (Levaquin) 500 mg PO DAILY [facility]; Protocol Stop: 11/16/18 10:01 Magnesium Oxide (Mag-Ox) 400 mg PO BID [facility]; Protocol Last Admin: 11/12/18 17:57 Dose: 400 mg Mupirocin (Bactroban Ointment) 0 gm TOP BID [facility]; Protocol Last Admin: 11/12/18 17:58 Dose: 1 applic Potassium Chloride (K-Dur 20 Meq Er Tab) 20 meq PO 0800 [facility]; Protocol Last Admin: 11/13/18 08:13 Dose: 20 meq Spironolactone (Aldactone) 25 mg PO BID [facility]; Protocol Last Admin: 11/12/18 17:56 Dose: 25 mg Tamsulosin HCl (Flomax) 0.4 mg PO 1830 [facility]; Protocol - Labs Labs: 11/11/18 07:20 11/11/18 08:45 - Respiratory Exam Respiratory Exam: Clear to Ausculation Bilateral, NORMAL BREATHING PATTERN - Cardiovascular Exam Cardiovascular Exam: REGULAR RHYTHM - GI/Abdominal Exam GI & Abdominal Exam: Soft, Normal Bowel Sounds - Extremities Exam Extremities Exam: Pedal Edema - Neurological Exam Neurological Exam: Alert, Awake - Skin Additional comments: dressing left arm clean & intact Assessment and Plan (1) CHF (congestive heart failure) Status: Chronic (2) Hypertension Status: Chronic (3) BPH (benign prostatic hyperplasia) Status: Chronic (4) Coronary artery disease Status: Chronic (5) Renal tubular acidosis, type IV Status: Chronic (6) Type II diabetes mellitus Status: Chronic - Assessment and Plan (Free Text) Plan: continue rehab, for DC planning, increase Loasartan 100mg qd for elevated BP
[2018-11-13] MEDS: levoFLOXacin 500 MG TAB PO SCH (11:05)
[2018-11-13] MEDS: Magnesium Oxide 400 mg Tab UD PO SCH ×2 (11:05→17:38)
[2018-11-13] MEDS: Mupirocin 2% Ointment 15 GM TUBE TOP SCH ×2 (12:12→17:40)
[2018-11-14] MEDS: Insulin Reg-LOW-Coverage SC SCH ×4 (06:41→21:20)
[2018-11-14] MEDS ORDERED: Bupivacaine 0.5% Inj(30mL) IJ ONE (07:25)
[2018-11-14] MEDS ORDERED: MethylPREDNISolone Depo 40 mg/ml Inj IM ONE (07:25)
[2018-11-14] MEDS: Potassium Chloride 20 mEq ER Tab PO SCH (08:31)
--- NOTE | 2018-11-14 09:15 | PN ---
DATE: 11/13/2018 SUBJECTIVE: The patient is in bed in no acute distress, nontoxic. PHYSICAL EXAMINATION: VITAL SIGNS: Temperature is 97, blood pressure is 130/ . HEENT: Unremarkable. NECK: Supple. LUNGS: Have decreased breath sounds. HEART: Normal S1, S2. ABDOMEN: Soft, nontender. LABORATORY EXAMINATION: Reveals a white count of 9.8, hemoglobin of 10, platelets of 451. BUN of 69, creatinine of 1.6. Urine Legionella is negative. ASSESSMENT AND PLAN: This is an 87-year-old with history of hypertension, cerebrovascular accident, coronary artery disease, congestive heart failure, diabetes, diabetic neuropathy, type 4 renal tubular acidosis, benign prostatic hypertrophy, acute kidney injury, cardiac catheterization, admitted to have severe sepsis and acute care, developed left arm cellulitis, congestive heart failure, healthcare-associated pneumonia and Dr. communication report is reviewed. We will discontinue the IV Levaquin. The patient has been on the Levaquin since the TE. We will change Levaquin to p.o., today is day #5 of Levaquin. Would complete 7 days, today is day #5 of 7 days. The patient's creatinine has improved to 1.6. Juan Francisco Brady MD
[2018-11-14] MEDS: levoFLOXacin 500 MG TAB PO SCH (11:03)
[2018-11-14] MEDS: Magnesium Oxide 400 mg Tab UD PO SCH ×2 (11:04→17:50)
[2018-11-14] MEDS: Mupirocin 2% Ointment 15 GM TUBE TOP SCH ×2 (11:04→17:50)
--- NOTE | 2018-11-14 16:22 | CON ---
DATE: 11/14/2018 ORTHOPEDIC CONSULTATION HISTORY OF PRESENT ILLNESS: An 87-year-old male with left shoulder pain since he has been in the hospital. X-ray shows subacromial impingement, high riding humerus suggestive of chronic rotator cuff tear and osteoarthritis of left shoulder. So to help his discomfort which is aggravated by motion and sleeping, we are going to plan to inject his shoulder with Depo-Medrol and Marcaine if the pain does not get better with therapy and then inject him when we get the medicine if he does not improve in a few days. 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 Issac Gonzalez DO
--- NOTE | 2018-11-14 19:08 | PN ---
DATE: 11/14/2018 REASON FOR CONSULTATION AND FOLLOWUP: Decompensated congestive heart failure, renal insufficiency, history of Mobitz type 1 arrhythmia, deconditioning of the body. SUBJECTIVE: The patient denies any chest pain, shortness of breath or any palpitations. The patient is not in apparent distress. Feels a lot better since he came in. PHYSICAL EXAMINATION: VITAL SIGNS: Heart rate 60, blood pressure 147/76. HEENT: PERRLA. Extraocular muscles intact. NECK: Supple. No carotid bruits. No thyromegaly. CHEST: Clear to auscultation. HEART: S1, S2. Regular. ABDOMEN: Soft. EXTREMITIES: Clubbing, cyanosis negative. Trace pedal edema. LABORATORY DATA: Blood workup: WBC as of 11/11/2018 is 9.8, hemoglobin 10.7, hematocrit 40.2, platelet count 451. Chemistries show sodium 133, potassium 4.4, chloride 97, carbon dioxide 27, anion gap of 13, BUN 16, creatinine 1.6. IMPRESSION: An 87-year-old male with past medical history significant for systolic dysfunction, diabetes with acute decompensated congestive heart failure secondary to acute on chronic systolic dysfunction on the medical floor as well as worsening renal insufficiency; history of coronary artery disease, history of stent in the past, one episode of phenomenon, but later on improved. Holter monitor was indication for pacemaker at this time; diabetes, hypertension, hyperlipidemia, cardiomyopathy, deconditioning of the body. RECOMMENDATIONS: Avoid beta seda. Continue losartan, continue , continue diuretics. Monitor electrolytes. Continue rehab. The patient's condition is stable and significantly improving. We will follow with you. We will repeat the labs in the morning. Thank you, Dr. Oliva, for providing the opportunity in taking care of the patient Monico Delgado. Swetha Jimenez MD
--- NOTE | 2018-11-14 20:15 | PN ---
DATE: 11/14/2018 SUBJECTIVE: The patient was seen earlier today in no acute distress, nontoxic. PHYSICAL EXAMINATION VITAL SIGNS: Temperature is 97, blood pressure is 160/80, respiratory rate of 18, heart rate of 60. HEENT: Unremarkable. NECK: Supple. LUNGS: Have decreased breath sounds. HEART: Normal S1, S2. ABDOMEN: Soft. LABORATORY EXAMINATION: Reveals a white count of 9.8, hemoglobin of 10, platelets of 451. Chemistries reveals that creatinine is 1.6. Serology; urine for Legionella is negative. ASSESSMENT AND PLAN: An 87-year-old with history of hypertension, cerebrovascular accident, coronary artery disease, congestive heart failure, diabetes, diabetic neuropathy, type 4 renal tubular acidosis, benign prostatic hypertrophy, acute kidney injury, cardiac catheterization admitted after severe sepsis, and was sent to acute care, developed left arm cellulitis and congestive heart failure, healthcare associated pneumonia. Today is day #6 of p.o. Levaquin, would complete 7 days of p.o. Levaquin and discontinue the Levaquin after tomorrow's last dose. Juan Francisco Brady MD
--- NOTE | 2018-11-14 20:49 | CP.PCM.PN ---
Subjective - Date & Time of Evaluation Date of Evaluation: 11/14/18 Time of Evaluation: 16:15 - Subjective Subjective: OOB in chair, NAD, denies chest pain, no SOB Objective - Vital Signs/Intake and Output Vital Signs (last 24 hours): Temp Pulse Resp BP Pulse Ox 97.4 F L 60 18 163/68 H 100 11/14/18 10:00 11/14/18 11:04 11/14/18 10:00 11/14/18 17:49 11/14/18 10:00 - Medications Medications: Current Medications Acetaminophen (Tylenol 325mg Tab) 650 mg PO Q6H PRN; Protocol PRN Reason: Pain, Mild (1-3) Last Admin: 11/13/18 22:06 Dose: 650 mg Aspirin (Ecotrin) 81 mg PO 0800 [facility]; Protocol Last Admin: 11/14/18 08:31 Dose: 81 mg Clopidogrel Bisulfate (Plavix) 75 mg PO 0800 [facility]; Protocol Last Admin: 11/14/18 08:31 Dose: 75 mg Fludrocortisone Acetate (Florinef) 0.1 mg PO DAILY [facility]; Protocol Last Admin: 11/14/18 11:03 Dose: 0.1 mg Furosemide (Lasix) 80 mg PO 0600,1800 [facility]; Protocol Last Admin: 11/14/18 17:49 Dose: 80 mg Glimepiride (Amaryl) 4 mg PO DAILY [facility] Hydralazine HCl (Apresoline) 50 mg PO BID [facility]; Protocol Last Admin: 11/14/18 17:49 Dose: 50 mg Insulin Human Regular (Humulin R Low) 0 units SC [facility]; Protocol Last Admin: 11/14/18 17:50 Dose: 5 u Levofloxacin (Levaquin) 500 mg PO DAILY [facility]; Protocol Stop: 11/16/18 10:01 Last Admin: 11/14/18 11:03 Dose: 500 mg Losartan Potassium (Cozaar) 50 mg PO DAILY [facility]; Protocol Last Admin: 11/14/18 11:04 Dose: 50 mg Magnesium Oxide (Mag-Ox) 400 mg PO BID [facility]; Protocol Last Admin: 11/14/18 17:50 Dose: 400 mg Mupirocin (Bactroban Ointment) 0 gm TOP BID [facility]; Protocol Last Admin: 11/14/18 17:50 Dose: 1 applic Potassium Chloride (K-Dur 20 Meq Er Tab) 20 meq PO 0800 [facility]; Protocol Last Admin: 11/14/18 08:31 Dose: 20 meq Spironolactone (Aldactone) 25 mg PO BID [facility]; Protocol Last Admin: 11/14/18 17:49 Dose: 25 mg Tamsulosin HCl (Flomax) 0.4 mg PO 1830 [facility]; Protocol Last Admin: 11/14/18 17:49 Dose: 0.4 mg - Labs Labs: 11/11/18 07:20 11/11/18 08:45 - Respiratory Exam Respiratory Exam: Clear to Ausculation Bilateral, NORMAL BREATHING PATTERN - Cardiovascular Exam Cardiovascular Exam: REGULAR RHYTHM - GI/Abdominal Exam GI & Abdominal Exam: Soft, Normal Bowel Sounds - Extremities Exam Extremities Exam: Pedal Edema - Neurological Exam Neurological Exam: Alert, Awake Assessment and Plan (1) CHF (congestive heart failure) Status: Chronic (2) Hypertension Status: Chronic (3) BPH (benign prostatic hyperplasia) Status: Chronic (4) Coronary artery disease Status: Chronic (5) Renal tubular acidosis, type IV Status: Chronic (6) Type II diabetes mellitus Status: Chronic - Assessment and Plan (Free Text) Plan: continue rehab, check labs in am, restart oral hypoglycemics
[2018-11-15] MEDS: Insulin Reg-LOW-Coverage SC SCH ×4 (06:44→21:36)
[2018-11-15 07:22] LABS: BASO # 0.04 K/mm3 (0.0-2.0); BASO % 0.3 % (0.0-3.0); EOS # 0.1 (0.0-0.7); EOS % 0.5 % (1.5-5.0); HEMOGLOBIN 11.2 g/dL (14.0-18.0); LYMPH % 6.7 % (22.0-35.0); MEAN CELL VOLUME 61.8 fl (80.0-105.0); MEAN CORPUSCULAR HEMOGLOBIN 16.8 pg (25.0-35.0); MEAN CORPUSCULAR HGB CONC 27.3 g/dl (31.0-37.0); MONO # 0.7 (0.1-0.6); MONO % 4.8 % (1.0-6.0); RBC 6.65 10^6/uL (3.5-6.1); RED CELL DISTRIBUTION WIDTH 24.1 % (11.5-14.5); WHITE BLOOD COUNT 14.7 10^3/uL (4.5-11.0)
[2018-11-15 07:44] LABS: CALCIUM 8.4 mg/dL (8.4-10.5)
[2018-11-15] MEDS: Potassium Chloride 20 mEq ER Tab PO SCH (08:16)
--- NOTE | 2018-11-15 08:54 | CP.PCM.PCO ---
Physician Communication Note - Physician Communication Note Physician Communication Note: Bullae L arm responding/Pt Now remembers IV in L arm
[2018-11-15] MEDS: levoFLOXacin 500 MG TAB PO SCH (11:18)
[2018-11-15] MEDS: Mupirocin 2% Ointment 15 GM TUBE TOP SCH ×2 (11:19→17:31)
[2018-11-15] MEDS: Magnesium Oxide 400 mg Tab UD PO SCH ×2 (11:19→17:30)
--- NOTE | 2018-11-15 15:21 | PN ---
DATE: 11/15/2018 REASON FOR CONSULTATION AND FOLLOWUP: Decompensated congestive heart failure, renal insufficiency, history of Mobitz type 1 arrhythmia, deconditioning of the body. SUBJECTIVE: The patient denies any chest pain, shortness of breath or any palpitations. PHYSICAL EXAMINATION: GENERAL: Not in apparent distress. VITAL SIGNS: Temperature afebrile. Heart rate 60, blood pressure 144/63. HEENT: PERRLA. Extraocular muscles intact. NECK: Supple. No carotid bruits. No thyromegaly. CHEST: Clear to auscultation. HEART: S1, S2 regular. ABDOMEN: Soft. EXTREMITIES: Clubbing, cyanosis negative. LABORATORY DATA: WBC 14.3, hemoglobin 11.8, hematocrit 41.1, platelet count 616. Chemistry shows sodium 131, potassium 4.6, chloride 95, carbon dioxide 30, anion gap of 11, BUN 17, creatinine 1.9. IMPRESSION: An 87-year-old male with past medical history significant for cardiomyopathy, chronic systolic dysfunction, admitted with acute decompensated congestive heart failure, initially treated with IV Primacor. The congestive heart failure secondary to acute on chronic systolic dysfunction, while the patient was admitted on the floor, also renal insufficiency, history of coronary artery disease in the past. Has one episode of Mobitz type 1 , but later on improved. Holter monitor; no indication for pacemaker this time. History of diabetes, hypertension, hyperlipidemia, cardiomyopathy, and deconditioning of the body in transitional care unit with continuity of care. RECOMMENDATIONS: Avoid beta-seda. Continue losartan, continue diuresis, monitor electrolytes, continue rehab, significantly improved creatinine. History of chronic renal insufficiency, baseline creatinine of 1.8 with creatinine clearance 30 mL an hour. Continue spironolactone, continue baby aspirin, continue Lasix. We will repeat the lab . Thank you, Dr. Oliva, for providing the opportunity in taking care of the patient, Sanyd Marc. Swetha Jimenez MD
--- NOTE | 2018-11-15 16:11 | CP.PCM.PN ---
Subjective - Date & Time of Evaluation Date of Evaluation: 11/15/18 Time of Evaluation: 15:10 - Subjective Subjective: denies chest pain, no SOB Objective - Vital Signs/Intake and Output Vital Signs (last 24 hours): Temp Pulse Resp BP Pulse Ox 97.5 F L 83 18 134/60 96 11/15/18 10:00 11/15/18 11:19 11/15/18 10:00 11/15/18 11:19 11/15/18 10:00 - Medications Medications: Current Medications Acetaminophen (Tylenol 325mg Tab) 650 mg PO Q6H PRN; Protocol PRN Reason: Pain, Mild (1-3) Last Admin: 11/13/18 22:06 Dose: 650 mg Aspirin (Ecotrin) 81 mg PO 0800 [facility]; Protocol Last Admin: 11/15/18 08:16 Dose: 81 mg Clopidogrel Bisulfate (Plavix) 75 mg PO 0800 [facility]; Protocol Last Admin: 11/15/18 08:16 Dose: 75 mg Fludrocortisone Acetate (Florinef) 0.1 mg PO DAILY [facility]; Protocol Last Admin: 11/15/18 11:18 Dose: 0.1 mg Furosemide (Lasix) 80 mg PO 0600,1800 [facility]; Protocol Last Admin: 11/15/18 05:01 Dose: 80 mg Glimepiride (Amaryl) 4 mg PO DAILY [facility] Last Admin: 11/15/18 11:18 Dose: 4 mg Hydralazine HCl (Apresoline) 50 mg PO BID [facility]; Protocol Last Admin: 11/15/18 11:19 Dose: 50 mg Insulin Human Regular (Humulin R Low) 0 units SC [facility]; Protocol Last Admin: 11/15/18 11:18 Dose: 7 u Levofloxacin (Levaquin) 500 mg PO DAILY [facility]; Protocol Stop: 11/16/18 10:01 Last Admin: 11/15/18 11:18 Dose: 500 mg Losartan Potassium (Cozaar) 50 mg PO DAILY [facility]; Protocol Last Admin: 11/15/18 11:18 Dose: 50 mg Magnesium Oxide (Mag-Ox) 400 mg PO BID [facility]; Protocol Last Admin: 11/15/18 11:19 Dose: 400 mg Mupirocin (Bactroban Ointment) 0 gm TOP BID [facility]; Protocol Last Admin: 11/15/18 11:19 Dose: 1 applic Potassium Chloride (K-Dur 20 Meq Er Tab) 20 meq PO 0800 [facility]; Protocol Last Admin: 11/15/18 08:16 Dose: 20 meq Spironolactone (Aldactone) 25 mg PO BID [facility]; Protocol Last Admin: 11/15/18 11:19 Dose: 25 mg Tamsulosin HCl (Flomax) 0.4 mg PO 1830 [facility]; Protocol Last Admin: 11/14/18 17:49 Dose: 0.4 mg - Labs Labs: 11/15/18 07:00 11/15/18 07:00 - Respiratory Exam Respiratory Exam: Clear to Ausculation Bilateral, NORMAL BREATHING PATTERN - Cardiovascular Exam Cardiovascular Exam: REGULAR RHYTHM - GI/Abdominal Exam GI & Abdominal Exam: Soft, Normal Bowel Sounds - Extremities Exam Extremities Exam: Pedal Edema - Neurological Exam Neurological Exam: Alert, Awake Assessment and Plan (1) CHF (congestive heart failure) Status: Chronic (2) Hypertension Status: Chronic (3) BPH (benign prostatic hyperplasia) Status: Chronic (4) Coronary artery disease Status: Chronic (5) Renal tubular acidosis, type IV Status: Chronic (6) Type II diabetes mellitus Status: Chronic - Assessment and Plan (Free Text) Plan: endocrine consult Dr. Santana for glycemic control, continue PT & SW for DC planning
--- NOTE | 2018-11-15 20:29 | CON ---
DATE OF CONSULTATION: 11/15/2018 ENDOCRINOLOGY CONSULTATION HISTORY OF PRESENT ILLNESS: This is an 87-year-old male with known history of type 2 diabetes and hypertension, presenting here with left shoulder pain and associated leukocytosis and is now being referred for diabetic evaluation because of marked hyperglycemic accelerations as noted thereof. He received IV steroid therapy as noted. PAST MEDICAL HISTORY: History of type 2 diabetes and hypertension with underlying dyslipidemia, history of previous admissions, congestive heart failure. He also has known history of coronary artery disease and peripheral arterial disease and vasculopathy. FAMILY HISTORY: Positive for hypertension and heart disease. SOCIAL HISTORY: The patient has supportive family. No known substance use. REVIEW OF SYSTEMS: As mentioned above, admits to the recent bouts of dizziness and lightheadedness with generalized body weakness and bifrontal headaches. No chest pains or palpitations, but admits to episodic shortness of breath, especially on exertion. His oral intake has been variable with nausea and dyspepsia and vague upper abdominal pains. Admits to recent polyuria, nocturia, and polydipsia with known history of habitual constipation. PHYSICAL EXAMINATION: GENERAL: This is an average-built male, in no apparent distress. VITAL SIGNS: Blood pressure of 150/90, pulse of 100 beats per minute, regular, temperature 98, respirations 20, height is 5 feet 4 inches, weight is 145 pounds. HEENT: Head, normocephalic. Eyes, anicteric with pink conjunctivae. Fundoscopy not possible at this time. Ears, nose, and throat, otherwise normal. NECK: Supple. Thyroid gland is normal size. No carotid bruits or any cervical adenopathy. CARDIOPULMONARY: Some adynamic precordium. S1, S2 are rapid and regular. LUNGS: Clear to auscultation. ABDOMEN: Flat, soft with positive bowel sounds. EXTREMITIES: No peripheral edema. Pulses are +2 bilaterally. LABORATORY DATA: WBC is 14.7, hemoglobin of 11, hematocrit of 41, MCV 62, platelets 616. His chemistries, BUN of 70, sodium 131, potassium 4.7, chloride 95, CO2 of 30, glucose 361, and creatinine 1.9. His glucose levels have ranged from 324-428 mg/dL. ASSESSMENT: This is an 87-year-old male with uncontrolled and decompensated type 2 insulin-requiring diabetes with transient hyperglycemic accelerations, most likely related to the intercurrent steroid therapy as given and should resolve accordingly as the insulin resistance improves thereof. PLAN OF MANAGEMENT: We will add basal insulin just for inpatient diabetic management with Levemir given as 12 units subcu at bedtime daily to start tonight as given. We will also increase his Amaryl to 4 mg b.i.d. before meals to start today as ordered. We will continue the low-dose correction scale using regular insulin as ordered. We will obtain serial chemistries accordingly and supplement as indicated. A hemoglobin A1c will be done to and control and baseline thyroid function studies will be ordered. We will follow this. Malathi Santana MD
--- NOTE | 2018-11-15 21:22 | PN ---
DATE: 11/15/2018 SUBJECTIVE: The patient is in bed, in no acute distress, nontoxic. No fevers. No chills. PHYSICAL EXAMINATION: VITAL SIGNS: The patient's temperature is 98, blood pressure is 130/70, respiratory rate of 16. HEENT: Unremarkable. NECK: Supple. LUNGS: Have decreased breath sounds. HEART: Normal S1, S2. ABDOMEN: Soft. LABORATORY DATA: Laboratory examination is noted. Creatinine is 1.9. Review of orders reveals the patient to be on p.o. Levaquin. ASSESSMENT AND PLAN: An 87-year-old male with history of cerebrovascular accident, coronary artery disease, congestive heart failure, diabetes, diabetic neuropathy, type IV renal tubular acidosis, benign prostatic hypertrophy, acute kidney injury. Today is day #7 of Levaquin. We will discontinue Levaquin after today's dose. Once the patient received at 10 o'clock this morning, we will discontinue Levaquin at this point. Juan Francisco Brady MD
[2018-11-15] MEDS: Insulin Detemir 100 units/ml Vial (Levemir) SC SCH (21:37)
[2018-11-16] MEDS: Insulin Reg-LOW-Coverage SC SCH ×4 (06:31→22:09)
[2018-11-16 07:03] LABS: ALB/GLOB RATIO 1.1 (1.1-1.8); ALBUMIN 2.8 g/dL (3.0-4.8); CALCIUM 8.2 mg/dL (8.4-10.5)
[2018-11-16] MEDS: Potassium Chloride 20 mEq ER Tab PO SCH (08:18)
[2018-11-16 08:37] LABS: HEMOGLOBIN 10.6 g/dL (14.0-18.0); MEAN CELL VOLUME 62.2 fl (80.0-105.0); MEAN CORPUSCULAR HEMOGLOBIN 17.3 pg (25.0-35.0); MEAN CORPUSCULAR HGB CONC 27.8 g/dl (31.0-37.0); PLATELET COUNT 692 10^3/uL (120.0-450.0); RBC 6.13 10^6/uL (3.5-6.1); RED CELL DISTRIBUTION WIDTH 24.3 % (11.5-14.5); WHITE BLOOD COUNT 15.9 10^3/uL (4.5-11.0)
--- NOTE | 2018-11-16 09:51 | PN ---
DATE: 11/16/2018 SUBJECTIVE: The patient is in bed in no acute distress, nontoxic. No fevers and no chills. PHYSICAL EXAMINATION: VITAL SIGNS: The patient is in bed with a temperature of 97, blood pressure is 130/50, respiratory rate of 18. HEENT: Unremarkable. NECK: Supple. LUNGS: Have decreased breath sounds. HEART: Normal S1, S2. ABDOMEN: Soft. LABORATORY EXAMINATION: Reveals a white count of 14,700 and BUN of 70, creatinine of 1.9. Serology is Legionella antigen is negative. ASSESSMENT AND PLAN: This is an 87-year-old male who was seen earlier today in 313 with history of cerebrovascular accident, coronary artery disease, congestive heart failure, diabetic neuropathy, type 4 renal tubular acidosis, BPH, acute kidney injury. Has completed 7 days of Levaquin currently afebrile. Normal white count, off of antibiotics. Yesterday his white count was elevated at 14,000. We will repeat the white count today. Juan Francisco Brady MD
[2018-11-16] MEDS: Magnesium Oxide 400 mg Tab UD PO SCH ×2 (09:55→17:47)
[2018-11-16] MEDS: Mupirocin 2% Ointment 15 GM TUBE TOP SCH ×2 (09:56→17:44)
--- NOTE | 2018-11-16 17:41 | PN ---
DATE: 11/16/2018 LOCATION: The patient is in room 313, bed 2. REASON FOR CONSULTATION AND FOLLOWUP: Decompensated congestive heart failure, renal insufficiency, history of Mobitz type 1, arrhythmia, and deconditioning. SUBJECTIVE: The patient sitting in chair comfortably without any cardiac symptoms. No chest pain, shortens's of breath, or palpitation. PHYSICAL EXAMINATION VITAL SIGNS: Blood pressure 135/70, respirations 18, pulse 90, and the patient is afebrile. HEENT: Head is normocephalic. Eyes, pupil normal. Conjunctiva slightly pale. Nose and throat normal. NECK: JVP low. Carotid equal. THORAX: AP diameter normal. LUNGS: Clear. CARDIOVASCULAR: S1 and S2. ABDOMEN: Soft. No tenderness. No organomegaly. Bowel sounds normal. EXTREMITIES: No clubbing. No cyanosis. LABORATORY DATA: WBC 15.9, hemoglobin 10.6, hematocrit 38.1, and platelet 692. Sodium 134, potassium 4.1, BUN 17, creatinine 1.9, and random sugar 234. AST 82, ALT 71, and alkaline phosphatase 274. TSH 2.91. DIAGNOSES: Cardiomyopathy, chronic systolic dysfunction, admitted with admitted with acute decompensated congestive heart failure, treated with IV Primacor and medical therapy. The patient improved. The patient's heart failure is secondary to acute on chronic systolic dysfunction, renal insufficiency, history of coronary artery disease in the past. Has one episode of Mobitz type 1 block, but later on which improved. No indication for pacemaker insertion at this time. History of diabetes, hypertension, hyperlipidemia, cardiomyopathy, deconditioning, renal failure as mentioned. PLAN: To avoid beta seda and continue physical therapy and continue losartan, diuresis with monitoring the electrolytes, BUN, and creatinine. The patient's baseline creatinine is 1.8. Creatinine clearance of 30 mL an hour. The patient is also getting spironolactone, baby aspirin, and we will follow with you. Swetha Faulkner MD
--- NOTE | 2018-11-16 18:28 | CP.PCM.PN ---
Subjective - Date & Time of Evaluation Date of Evaluation: 11/16/18 Time of Evaluation: 13:00 - Subjective Subjective: OOB in chair, NAD, denies chest pain, no SOB Objective - Vital Signs/Intake and Output Vital Signs (last 24 hours): Temp Pulse Resp BP Pulse Ox 97.6 F 79 18 137/61 98 11/16/18 16:00 11/16/18 17:44 11/16/18 16:00 11/16/18 17:44 11/16/18 16:00 - Medications Medications: Current Medications Acetaminophen (Tylenol 325mg Tab) 650 mg PO Q6H PRN; Protocol PRN Reason: Pain, Mild (1-3) Last Admin: 11/13/18 22:06 Dose: 650 mg Aspirin (Ecotrin) 81 mg PO 0800 [facility]; Protocol Last Admin: 11/16/18 08:19 Dose: 81 mg Clopidogrel Bisulfate (Plavix) 75 mg PO 0800 [facility]; Protocol Last Admin: 11/16/18 08:33 Dose: 75 mg Fludrocortisone Acetate (Florinef) 0.1 mg PO DAILY [facility]; Protocol Last Admin: 11/16/18 09:55 Dose: 0.1 mg Furosemide (Lasix) 80 mg PO 0600,1800 [facility]; Protocol Last Admin: 11/16/18 17:42 Dose: 80 mg Glimepiride (Amaryl) 4 mg PO ACBD [facility] Last Admin: 11/16/18 17:00 Dose: 4 mg Hydralazine HCl (Apresoline) 50 mg PO BID [facility]; Protocol Last Admin: 11/16/18 17:44 Dose: 50 mg Insulin Detemir (Levemir) 12 unit SC HS [facility] Last Admin: 11/15/18 21:37 Dose: 12 units Insulin Human Regular (Humulin R Low) 0 units SC ACHS [facility]; Protocol Last Admin: 11/16/18 17:45 Dose: 4 u Losartan Potassium (Cozaar) 50 mg PO DAILY [facility]; Protocol Last Admin: 11/16/18 09:54 Dose: 50 mg Magnesium Oxide (Mag-Ox) 400 mg PO BID [facility]; Protocol Last Admin: 11/16/18 17:47 Dose: 400 mg Mupirocin (Bactroban Ointment) 0 gm TOP BID [facility]; Protocol Last Admin: 11/16/18 17:44 Dose: 1 applic Potassium Chloride (K-Dur 20 Meq Er Tab) 20 meq PO 0800 [facility]; Protocol Last Admin: 11/16/18 08:18 Dose: 20 meq Spironolactone (Aldactone) 25 mg PO BID [facility]; Protocol Last Admin: 11/16/18 17:42 Dose: 25 mg Tamsulosin HCl (Flomax) 0.4 mg PO 1830 [facility]; Protocol Last Admin: 11/16/18 17:44 Dose: 0.4 mg - Labs Labs: 11/16/18 07:00 11/16/18 05:30 - Respiratory Exam Respiratory Exam: Clear to Ausculation Bilateral, NORMAL BREATHING PATTERN - Cardiovascular Exam Cardiovascular Exam: REGULAR RHYTHM - GI/Abdominal Exam GI & Abdominal Exam: Soft, Normal Bowel Sounds - Extremities Exam Extremities Exam: Pedal Edema - Neurological Exam Neurological Exam: Alert, Awake - Skin Additional comments: dressing left arm intact Assessment and Plan (1) CHF (congestive heart failure) Status: Chronic (2) Hypertension Status: Chronic (3) BPH (benign prostatic hyperplasia) Status: Chronic (4) Coronary artery disease Status: Chronic (5) Renal tubular acidosis, type IV Status: Chronic (6) Type II diabetes mellitus Status: Chronic
--- NOTE | 2018-11-16 18:36 | PN ---
DATE: 11/16/2018 ENDOCRINOLOGY FOLLOWUP NOTE LOCATION: In room 313. SUBJECTIVE: This is an 87-year-old male with recent uncontrolled type 2 insulin-requiring diabetes with marked hyperglycemic accelerations and is now being followed closely for metabolic management. LABORATORY DATA: His glycemic levels overnight have improved and have ranged from 132 to 234 mg/dL. His chemistry showed a BUN of 75, sodium 134, potassium 4.1, chloride 99, CO2 of 29, glucose 110 and creatinine 1.9. His TSH is 2.91. ASSESSMENT: This is an 87-year-old male with uncontrolled and decompensated type 1 insulin-dependent diabetes and is now being referred for diabetic evaluation and management. PLAN OF MANAGEMENT: We will continue the basal insulin started as Levemir at 12 units subcutaneous at bedtime daily as given. We will continue also the dual oral hypoglycemic drug therapy with Amaryl given as 4 mg b.i.d. before meals as ordered. We will titrate incrementally as indicated to optimize metabolic control. We will follow his lipid panel accordingly. Malathi Santana MD
[2018-11-16] MEDS: Insulin Detemir 100 units/ml Vial (Levemir) SC SCH (22:09)
--- NOTE | 2018-11-17 01:48 | PROCN ---
DATE: 11/16/2018 INDICATION: An 87-year-old male, he was complaining of pain in the left shoulder, so we decided to inject the left shoulder with Depo-Medrol with Marcaine. PROCEDURE IN DETAIL: His shoulder was prepped and draped; this was done yesterday, to inject with Depo-Medrol with Marcaine. I did the consult prior to the injection. This did not get better, so I injected his left shoulder with Depo-Medrol with Marcaine to help defeat his pain better; we did that yesterday. Today, his shoulder feels much better. Hopefully, he could participate in therapy and even do some gentle range of motion of the left shoulder. Issac Gonzalez DO
[2018-11-17] MEDS: Insulin Reg-LOW-Coverage SC SCH ×4 (07:28→22:34)
[2018-11-17] MEDS: Potassium Chloride 20 mEq ER Tab PO SCH (08:26)
[2018-11-17] MEDS: Magnesium Oxide 400 mg Tab UD PO SCH ×2 (09:49→17:38)
[2018-11-17] MEDS: Mupirocin 2% Ointment 15 GM TUBE TOP SCH ×2 (09:51→17:41)
--- NOTE | 2018-11-17 13:22 | PN ---
DATE: 11/17/2018 SUBJECTIVE: The patient is in bed, in no acute distress. Nontoxic. PHYSICAL EXAMINATION: On exam; VITAL SIGNS: Temperature is 98, blood pressure is 125/60, and respiratory rate of 18. HEENT: Unremarkable. NECK: Supple. LUNGS: Decreased breath sounds. HEART: Normal S1 and S2. ABDOMEN: Soft. LABORATORY DATA: Laboratory examination reveals a white count of 15,000. Chemistries are noted. REVIEW OF ORDERS: Reveals the patient to be on no antibiotics. ASSESSMENT AND PLAN: An 87-year-old male, seen earlier today with history of cerebrovascular accident, coronary artery disease, congestive heart failure, diabetic neuropathy, type 4 renal tubular acidosis, benign prostate hypertrophy, and acute kidney injury. He had completed the antibiotics. He is currently off of antibiotics, afebrile. However, the patient does have leukocytosis of 15,900 and we will continue to monitor. The patient is nontoxic. I would recommend ordering a chest x-ray, blood, urine, sputum cultures, and procalcitonin. Juan Francisco Brady MD
--- NOTE | 2018-11-17 16:11 | RAD ---
Date of service: 11/17/2018 HISTORY: wbc 15.9 COMPARISON: 11/04/2018 TECHNIQUE: Chest PA and lateral views FINDINGS: LUNGS: No active pulmonary disease. PLEURA: No significant pleural effusion identified. No pneumothorax apparent. CARDIOVASCULAR: No aortic atherosclerotic calcification present. Mild cardiomegaly no pulmonary vascular congestion. OSSEOUS STRUCTURES: No significant abnormalities. VISUALIZED UPPER ABDOMEN: Normal. OTHER FINDINGS: None. IMPRESSION: No active disease.
--- NOTE | 2018-11-17 17:29 | PN ---
DATE: 11/17/2018 REASON FOR CONSULTATION AND FOLLOWUP: Decompensated congestive heart failure, renal failure, history of Mobitz type 1, arrhythmia and deconditioning of the body. SUBJECTIVE: The patient denies any chest pain, shortness of breath, any palpitations. PHYSICAL EXAMINATION: GENERAL: Not in apparent distress, lying flat, feels better. Less shortness of breath. VITAL SIGNS: Temperature afebrile, heart rate 78, blood pressure 123/65. HEENT: PERRLA. Extraocular muscles intact. NECK: Supple. No carotid bruits. No thyromegaly. CHEST: Clear to auscultation. HEART: S1 and S2 regular. ABDOMEN: Soft. EXTREMITIES: Clubbing, cyanosis negative. LABORATORY DATA: Blood workup as follows: WBC 15.9, hemoglobin 10.6, hematocrit 38.1, platelet count 692. Chemistries show sodium 134, potassium 4.1, chloride 99, carbon dioxide 29, anion gap of 9, BUN 75, and creatinine 1.9. Total bilirubin 5.3, albumin 2.8, albumin globulin ratio 1.1. IMPRESSION: An 87-year-old male with past medical history significant for cardiomyopathy, coronary artery disease, history of congestive heart failure secondary to acute on chronic systolic dysfunction, admitted to the acute medical floor with acute decompensated congestive heart failure and systolic dysfunction. The patient treated with intravenous Primacor as outpatient in the transitional care unit for cardiac intensive care. The patient has baseline renal insufficiency, chronic kidney disease. One episode, the patient had Mobitz type 1, later it is improved. Holter was done. Did not show any indication with a pacemaker at this time. History of diabetes, hypertension, hyperlipidemia, cardiomyopathy, deconditioning of the body. RECOMMENDATIONS: Avoid beta-seda, avoid rate limiting calcium channel seda, continue diuresis, monitor renal function closely. Continue rehab. Continue spironolactone. Continue aspirin. Continue Flomax. Continue gentle diuretics. Monitor electrolytes and we will follow with you. Thank you Dr. Mitchell for providing us the opportunity in taking care of this patient, Sandy Marc. Swetha Jimenez MD [facility] # [id number]
--- NOTE | 2018-11-17 19:47 | PN ---
DATE: 11/17/2018 ENDO FOLLOWUP NOTE LOCATION: Room [address] [place] [address]. SUBJECTIVE: This is an 87-year-old male with recent uncontrolled type 2 insulin-requiring diabetes, now being followed closely for metabolic management. He is currently off steroid therapy as noted. His glycemic levels are fluctuating, but improved and the glucose values have ranged from 132 to 234 and 318 mg/dL. LABORATORY DATA: His chemistry showed a BUN of 75, sodium 134, potassium 4.1, chloride 99, CO2 is 29, glucose is 110 and creatinine is 1.9. His hemoglobin A1c is 7.1% which is near optimal in terms of his outpatient diabetic control as noted. ASSESSMENT: This is an 87-year-old male with uncontrolled and decompensated type 2 insulin-requiring diabetes with marked hyperglycemic accelerations and clearly is multifactorial and related to his variable nutritional intake and previous use of steroid therapy, contributing to the increased insulin resistance thereof. PLAN OF MANAGEMENT: We will hold off the Levemir given as basal insulin for outpatient diabetic management. This was given only for transient inpatient hyperglycemic accelerations as noted thereof. Would recommend that he is also on Amaryl given as 4 mg b.i.d. before meals with the resumption of his metformin therapy given in the outpatient by his primary physician. If hyperglycemic levels persist, we consider the addition of Januvia medications as indicated. We will also hold off further insulin therapies to be given in the outpatient and observe his glycemic fluctuations without insulin therapy thereof. We will follow. Malathi Santana MD
--- NOTE | 2018-11-17 19:54 | US ---
PROCEDURE: Left lower extremity venous US HISTORY: Leg pain and swelling. Evaluate for DVT. PHYSICIAN(S): Chadd Puentes MD. TECHNIQUE: Duplex sonography and color-flow Doppler with graded compression were used to evaluate the deep venous system of the left lower extremity. FINDINGS: The visualized deep venous system of the left lower extremity is sonographically normal and compressible. Normal wave forms and augmentation are seen. There is no sonographic evidence for deep venous thrombosis in the visualized segments of the left lower extremity. IMPRESSION: 1. No sonographic evidence for deep venous thrombosis in the visualized segments of the left lower extremity.
[2018-11-17] MEDS ORDERED: Insulin Detemir 100 units/ml Vial (Levemir) SC SCH (22:00)
[2018-11-18 05:37] LABS: URINE BILIRUBIN NEGATIVE (NEGATIVE); URINE BLOOD NEGATIVE (NEGATIVE); URINE GLUCOSE (UA) NEGATIVE (NEGATIVE); URINE LEUKOCYTE ESTERASE NEGATIVE Leu/uL (NEGATIVE); URINE PROTEIN 100 mg/dL (<30 mg/dL); URINE UROBILINOGEN 0.2 E.U./dL (<1 E.U./dL)
[2018-11-18 05:39] LABS: URINE APPEARANCE CLEAR (CLEAR); URINE COLOR YELLOW (YELLOW)
[2018-11-18 05:48] LABS: URINE EPITHELIAL CELLS 0 - 2 /hpf (0-5); URINE RBC 0 - 2 /hpf (0-2); URINE WBC 0 - 2 /hpf (0-6)
[2018-11-18 06:34] LABS: BASO # 0.16 K/mm3 (0.0-2.0); BASO % 1.1 % (0.0-3.0); EOS # 0.2 (0.0-0.7); EOS % 1.4 % (1.5-5.0); HEMOGLOBIN 10.2 g/dL (14.0-18.0); LYMPH # 1.9 (1.2-3.4); LYMPH % 13.1 % (22.0-35.0); MEAN CELL VOLUME 63.1 fl (80.0-105.0); MEAN CORPUSCULAR HEMOGLOBIN 17.2 pg (25.0-35.0); MEAN CORPUSCULAR HGB CONC 27.3 g/dl (31.0-37.0); MONO # 0.7 (0.1-0.6); MONO % 4.8 % (1.0-6.0); RBC 5.93 10^6/uL (3.5-6.1); RED CELL DISTRIBUTION WIDTH 25.4 % (11.5-14.5); WHITE BLOOD COUNT 14.2 10^3/uL (4.5-11.0)
[2018-11-18 06:43] LABS: ALB/GLOB RATIO 1.1 (1.1-1.8); ALBUMIN 2.8 g/dL (3.0-4.8); CALCIUM 8.3 mg/dL (8.4-10.5)
[2018-11-18] MEDS: Insulin Reg-LOW-Coverage SC SCH ×2 (06:56→12:21)
[2018-11-18 07:04] LABS: PLATELET COUNT 840 10^3/uL (120.0-450.0)
[2018-11-18] MEDS: Potassium Chloride 20 mEq ER Tab PO SCH (07:58)
[2018-11-18] MEDS: Magnesium Oxide 400 mg Tab UD PO SCH (09:46)
[2018-11-18] MEDS: Mupirocin 2% Ointment 15 GM TUBE TOP SCH (09:48)
[2018-11-18 09:49] VITALS: BP 120/49; PULSE 47
--- NOTE | 2018-11-18 10:19 | PN ---
DATE: 11/18/2018 SUBJECTIVE: The patient is in bed in no acute distress, nontoxic. PHYSICAL EXAMINATION: VITAL SIGNS: Temperature is 97, blood pressure is 138/50, respiratory rate of 20, heart rate of 73. HEENT: Unremarkable. NECK: Supple. LUNGS: Decreased breath sounds. HEART: Normal S1 and S2. ABDOMEN: Soft and nontender. LABORATORY DATA: Reveals a white count of 14,200, hemoglobin of 10, platelets of 840. Chemistries are noted. Urinalysis is noted. The patient's procalcitonin 0.12. Negative urinalysis, urine for Legionella is negative. Microbiology is pending. Blood, urine cultures are pending. The patient is currently off of antibiotics. The patient had a chest x-ray, no active lung disease. Ultrasound of the lower extremities, no evidence of DVT. ASSESSMENT AND PLAN: This is an 87-year-old male who was seen earlier this morning in room 313. He is ambulatory and he is walking around. He has no complaints of diarrhea and has a history of cerebrovascular accident, congestive heart failure, diabetic neuropathy, type 4 renal tubular acidosis, benign prostatic hypertrophy, acute kidney injury. He does not appear toxic. He appears to be stable, however, he does have and new leukocytosis, etiology of which is not entirely clear. We will check on the culture results, thus far the chest x-ray is negative. Procal is negative, ultrasound of lower extremity is negative. Urinalysis is negative and we will follow with you. The arm appears to be much improved, etiology of this is not entirely clear. The patient does have LFT elevations and alk phos elevations. In the acute care, the patient had an ultrasound of the gallbladder on 11/09/2018 which showed no stones in the common bile duct not to be dilated. The patient also had a HIDA scan which was normal. The cystic duct was patent. CAT scan of the abdomen and pelvis on 11/06/2018, possible cystitis and enlarged prostate, unremarkable urinalysis, recommend a GI evaluation for alk phos elevation and LFT elevation, and no clear etiology or infectious etiology for the leukocytosis. We will follow with you. Juan Francisco Brady MD [facility] # [id number]
[2018-11-18 11:15] VITALS: RESP 18; TEMP 97.3; O2SAT 98
--- NOTE | 2018-11-18 13:13 | PN ---
DATE: 11/18/2018 LOCATION: The patient is in room 313, bed 2. REASON FOR CONSULTATION AND FOLLOWUP: Decompensated congestive heart failure, renal failure, history of Mobitz type 1, arrhythmia, and deconditioning. SUBJECTIVE: The patient sitting in chair without any chest pain, shortness of breath, and palpitation, getting physical therapy without any cardiac symptoms. PHYSICAL EXAMINATION: VITAL SIGNS: Blood pressure 138/62, respirations 20, pulse 73, temperature 97.9. HEENT: Head is normocephalic. Eyes, pupil normal. Conjunctiva slightly pale. NECK: JVP low. Carotid equals. THORAX: AP diameter normal. LUNGS: Clear. CARDIOVASCULAR: S1 and S2, systolic murmur. No rub. ABDOMEN: Soft and nontender. No organomegaly. EXTREMITIES: No clubbing. No cyanosis. LABORATORY DATA: WBC 14.2, hemoglobin 10.2, hematocrit 37.4, platelets 840. Sodium 136, potassium 4.7, BUN 87, creatinine 1.9, AST 80, ALT 77, alkaline phosphatase 268, total protein 5.4, albumin 2.8. DIAGNOSES: Cardiomyopathy, coronary artery disease, history of congestive heart failure secondary to acute on chronic systolic left ventricular dysfunction, was admitted to medical floor with acute decompensated congestive heart failure and the patient treated with intravenous Primacor, and now the patient transitional care unit for deconditioning, physical therapy, renal insufficiency, chronic kidney disease, one episode of Mobitz type 1 seda, later on it was improved. indication for pacemaker insertion, history of diabetes, hypertension, hyperlipidemia, cardiomyopathy, and deconditioning. PLAN: We will continue physical therapy, avoid beta blockers, and avoid rate limiting calcium channel seda. The patient also on spironolactone, Amaryl, hydralazine, losartan, aspirin, Florinef 0.1 mg daily, Januvia 50 mg daily, potassium 20 daily, furosemide 80 mg p.o. twice a day, insulin as ordered, Plavix 75 mg daily. We will continue current therapy. We will follow with you closely. Swetha Faulkner MD [facility] # [id number]
--- NOTE | 2018-11-19 01:39 | DS ---
HOSPITAL COURSE: The patient is an 87-year-old male who was admitted to the Transitional Care Unit for rehabilitation status post admission on 11/01/2018 with CHF and pneumonia. The patient had an uneventful course in the Transitional Care Unit. He was treated for some cellulitis of the left arm due to possible extravasation of IV solution with some improvement. The patient also had some mild leukocytosis and thrombocytosis noted on his CBC, which will be followed up as an outpatient. The patient is now medically stable for discharge. PHYSICAL EXAMINATION VITAL SIGNS: Blood pressure 120/49, temperature is 97.2, pulse 47, respiratory rate 18. LUNGS: Clear. HEART: Regular rate and rhythm. ABDOMEN: Soft, nontender. Bowel sounds are normoactive. EXTREMITIES: Left arm dressing is clean and intact. NEUROLOGIC: The patient is awake and oriented x3 without focal sensory or motor deficits. LABORATORY DATA: CBC; WBC is 14.2, hemoglobin 10.2, hematocrit 37.4, platelet count is elevated 840. Sodium 136, potassium 4.7, chloride 102, CO2 of 27, BUN 87, creatinine 1.9. Glucose 132. LFTs are elevated with AST at 80, ALT 77, alk phos 268. IMPRESSION 1. Hypertension, hypertensive cardiovascular disease and congestive heart failure. 2. Pneumonia. 3. Type 2 diabetes mellitus with diabetic neuropathy and hyperkalemia secondary to type 4 renal tubular acidosis. 4. Degenerative joint disease. 5. Benign prostatic hyperplasia. 6. Coronary artery disease. 7. Leukocytosis and thrombocytosis. PLAN: The patient will be discharged to home on the following medications; Flomax 0.4 mg daily, meloxicam 15 mg daily, glimepiride 4 mg daily, Florinef 0.1 mg daily, Plavix 75 mg daily, losartan 50 mg daily, Lasix 80 mg twice daily. The patient will be maintained on a consistent carbohydrate diet. Activities ad libitum. 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 Taylor for the leukocytosis and thrombocytosis. LUIS Soto MD
--- NOTE | 2018-11-21 07:53 | PN ---
DATE: 11/18/2018 ENDOCRINOLOGY FOLLOWUP NOTE LOCATION: Room 313, [facility]. SUBJECTIVE: This is an 87-year-old male with recent uncontrolled type 2 insulin-requiring diabetes, now being followed closely for metabolic management. He is currently off steroid therapy as noted. His glycemic levels are fluctuating between 134 to 140, to 130 and 175, and 318 mg/dL. LABORATORY DATA: His chemistry showed a BUN of 75, sodium 134, potassium 4.7, chloride 106, CO2 of 27, glucose 132, and creatinine 1.9. His hemoglobin A1c is 7.1%. ASSESSMENT: This is an 87-year-old male with uncontrolled and decompensated type 2 insulin-requiring diabetes with marked hyperglycemic accelerations and clearly is multifactorial and related to his variable nutritional intake and previous use of steroid therapy, contributing to the increased insulin resistance thereof. PLAN OF MANAGEMENT: We will give him Levemir 20 units subcutaneous at bedtime daily as given. We will follow his lipid panel and treat accordingly. Malathi Santana MD
== END 2018-11-18 15:35 | disposition home or self-care (01) | DRG 291 ==
LOC: TRCU 20:16 → ERH 21:50 → TRCU 21:51
PROVIDERS: ADMIT Internal Medicine; ATTEND Internal Medicine
PROC: F07Z9FZ Gait Training/Functional Ambulation Treatment using Assistive, Adaptive, Supportive or Protective Equipment (ICD-10-PCS; principal; 2018-11-12)
PROC: F08Z1FZ Dressing Techniques Treatment using Assistive, Adaptive, Supportive or Protective Equipment (ICD-10-PCS; 2018-11-13)
PROC: F08Z2ZZ Grooming/Personal Hygiene Treatment (ICD-10-PCS; 2018-11-15)
PROC: F07L6ZZ Therapeutic Exercise Treatment of Musculoskeletal System - Lower Back / Lower Extremity (ICD-10-PCS; 2018-11-17)
DX: I13.0 Hypertensive heart and chronic kidney disease with heart failure and stage 1 through stage 4 chronic kidney disease, or unspecified chronic kidney disease (principal); I50.23 Acute on chronic systolic (congestive) heart failure; J18.9 Pneumonia, unspecified organism; L03.114 Cellulitis of left upper limb; N18.3 Chronic kidney disease, stage 3 (moderate); E11.22 Type 2 diabetes mellitus with diabetic chronic kidney disease; N40.0 Benign prostatic hyperplasia without lower urinary tract symptoms; E11.40 Type 2 diabetes mellitus with diabetic neuropathy, unspecified; E11.51 Type 2 diabetes mellitus with diabetic peripheral angiopathy without gangrene; E11.65 Type 2 diabetes mellitus with hyperglycemia; I25.10 Atherosclerotic heart disease of native coronary artery without angina pectoris; E78.5 Hyperlipidemia, unspecified; E87.5 Hyperkalemia; I44.1 Atrioventricular block, second degree; I08.3 Combined rheumatic disorders of mitral, aortic and tricuspid valves; I42.9 Cardiomyopathy, unspecified; M19.012 Primary osteoarthritis, left shoulder; M75.102 Unspecified rotator cuff tear or rupture of left shoulder, not specified as traumatic; N25.89 Other disorders resulting from impaired renal tubular function; Y95 Nosocomial condition; Z79.84 Long term (current) use of oral hypoglycemic drugs; Z79.02 Long term (current) use of antithrombotics/antiplatelets; Z79.1 Long term (current) use of non-steroidal anti-inflammatories (NSAID); Z86.73 Personal history of transient ischemic attack (TIA), and cerebral infarction without residual deficits; Z95.5 Presence of coronary angioplasty implant and graft; Z88.0 Allergy status to penicillin